=== PATIENT | female | born 1970 | race Two or more races ===

== ENCOUNTER 2020-03-20 14:00 | Inpatient (IN) | payer MEDICAID ==
[~2020-03-20] VITALS: Ht 149.9 cm; Wt 49.0 kg
[2020-03-20] MEDS ORDERED: Omnipaque-300 100ml vial INJ PRN (14:15)
[2020-03-20 14:20] VITALS: BP 126/100
--- NOTE | 2020-03-20 14:32 | Emergency Room Report ---
History of Present Illness General Chief Complaint: Abdominal Pain Source: Patient, EMS (Manda Friend) Present Illness HPI 49 YO female presents to the emergency department complaining of 8 out of 10 severity abdominal pain with bloating and associated nausea, vomiting and diarrhea x1 week. Patient denies significant past medical history. Patient denies hx of liver disease or alcoholism. She reports she has not drunken alcohol in over 5 years until today. Pt. did ask if I would discard an empty bottle of vodka for her during HPI and ROS. Pt. denies blood in vomit or stool. She denies black tarry stools. Patient denies recent antibiotic use. She denies fevers or chills. She denies cough, chest pain, shortness of breath or lower extremity edema. No other aggravating or relieving factors at this time. (Manda Friend) Allergies: Coded Allergies: No Known Allergies (Unverified , 03/20/20) COVID-19 Screening Contact w/high risk pt: No Experienced COVID-19 symptoms?: No COVID-19 Testing performed MEDICAL RECORDS CLERK: No (Manda Friend) Patient History Past Medical History: see triage record Past Surgical History: none Pertinent Family History: none Now: No Reviewed Nursing Documentation: PMH: Agreed; PSxH: Agreed (Manda Friend) Nursing Documentation-PMH Past Medical History: No Stated History (Manda Friend) Review of Systems All Other Systems: negative except mentioned in HPI (Manda Friend) Physical Exam Vital Signs Date Time Temp Pulse Resp B/P (MAP) Pulse Ox O2 Delivery O2 Flow Rate FiO2 03/20/20 14:02 97.2 64 18 126/100 (109) 100 Room Air Sp02 EP Interpretation: reviewed, normal General Appearance: alert, GCS 15, mild distress, thin, Chronically Ill Head: normocephalic, atraumatic Eyes: bilateral eye PERRL, bilateral eye scleral icterus ENT: hearing grossly normal, normal voice Neck: full range of motion Respiratory: chest non-tender, lungs clear, normal breath sounds, no respiratory distress, no wheezing, speaking full sentences Cardiovascular #1: regular rate, rhythm, no edema, normal capillary refill Gastrointestinal: normal bowel sounds - distant bowel sounds, soft, distended, tenderness - Diffusely in all 4 quadrants Rectal: deferred Genitourinary: normal inspection, no CVA tenderness Musculoskeletal: back normal, normal range of motion, non-tender Neurologic: alert, motor strength/tone normal, oriented x3, sensory intact, responsive, speech normal, no focal defects Psychiatric: judgement/insight normal Skin: no rash, normal color (Manda Friend) Procedures Critical Care Time Critical Care Time Total Critical Care Time: 60 min bedside evaluation and treatment excludes procedures (EKG, paracentesis). Reason for critical care: Liver failure, sepsis, hypotension, possible spontaneous bacterial peritonitis, anemia Possible complications: hypotension, hypertension, CO, shock, arrhythmias, metabolic acidosis, end organ damage, respiratory failure. Interventions: Repeat evaluations, sepsis resuscitation, antibiotics, diagnostic paracentesis, blood transfusion Course: Patient presented with abdominal pain with nausea and vomiting for 1 week. Please see evaluation by PA. Elevated white blood cell count led to evaluation of source. Accu-Chek low. D50 water ordered. This necessitated diagnostic paracentesis. In addition the patient received judicious IV hydration initially. Patient became hypotensive prior to paracentesis. 30 mils per kilogram fluid bolus administered. Level of care upgraded. Discussed with O physician and determination patient unstable for transfer. Antibiotics administered. Detailed discussion with PA regarding treatment. Vitamin K administered IV for coagulopathy. Blood transfusion ordered and informed consent performed with patient. Emergent indication with severe anemia and hypotension. Vital signs improved after blood transfusion which was tolerated well. Consultations: nursing staff, EMS, PA, O physician Performed by: Dr. Lima Tolerated well condition = critical (Kong Lima MD) Additional Procedure Procedure Narrative Paracentesis - diagnostic: Informed consent obtained by patient. Right lower quadrant prepped with Betadine. Ultrasound used with sterile covering. Lidocaine with epinephrine infused intradermally and subcutaneously and then deeply with 25-gauge needle. Paracentesis performed in space free of bowel loops with 21-gauge needle. 30 mils of straw-colored fluid obtained without difficulty. No continued bleeding at the site. Patient tolerated the procedure well. (Kong Lima MD) Medical Decision Making PA Attestation Dr. Lima Is my supervising Physician whom patient management has been discussed with. (Manda Friend) Diagnostic Impression: Primary Impression: Hepatitis Additional Impressions: Hypoglycemia Leukocytosis Qualified Codes: D72.829 - Elevated white blood cell count, unspecified Anemia Qualified Codes: D64.9 - Anemia, unspecified Acute renal failure Qualified Codes: N17.9 - Acute kidney failure, unspecified Cirrhosis Qualified Codes: K70.31 - Alcoholic cirrhosis of liver with ascites History of alcohol abuse UTI (urinary tract infection) Qualified Codes: N39.0 - Urinary tract infection, site not specified ER Course 49 YO female presents to the emergency department complaining of 8 out of 10 severity abdominal pain with bloating and associated nausea, vomiting and diarrhea x1 week. Patient denies significant past medical history. Patient denies hx of liver disease or alcoholism. She reports she has not drunken alcohol in over 5 years until today. Pt. did ask if I would discard an empty bottle of vodka for her during HPI and ROS. Pt. denies blood in vomit or stool. She denies black tarry stools. Patient denies recent antibiotic use. She denies fevers or chills. She denies cough, chest pain, shortness of breath or lower extremity edema. No other aggravating or relieving factors at this time. Ddx considered but are not limited to Diverticulitis, acute appy, diarrhea,UC, PUD, GE, pancreatitis, gallstone Vital signs: are WNL, pt. is afebrile H&PE are most consistent with appearance of ascites as well as scleral icterus high suspicion of liver failure/hepatitis. Stable VS. Mentation is normal at this time. No liver flap. ORDERS: -CBC WBC- 28.4 ( elevated ) -CMP: * Low potassium 2.6, Cr elevated at 3 -Lipase -Troponin: WNL 0.00 -Total CK - UA -Hepatitis Panel -Ammonia: 52 elevated -Serum ETOH: no acute intoxication -Accu-Check: 30 * ED INTERVENTIONS: -- 500cc NS at a rate of 200mls/hr , then bolus x 2 -D50 --- to correct hypoglycemia of 30 PT. given potassium, magnesium, IV abx: Flagyl & Cefepime DISPOSITION: at this time pt. will be admitted to Dr. Diaz for Acute Liver Failure, hypoglycemia, hypokalemia and leukocytosis. Dr. Diaz agreed to admit the pt. and to continue pt. care management. Labs Test 03/20/20 15:30 White Blood Count 28.4 K/UL (4.8-10.8) Red Blood Count 2.23 M/UL (4.20-5.40) Hemoglobin 6.9 G/DL (12.0-16.0) Hematocrit 22.2 % (37.0-47.0) Mean Corpuscular Volume 100 FL (80-99) Mean Corpuscular Hemoglobin 30.9 PG (27.0-31.0) Mean Corpuscular Hemoglobin Concent 31.0 G/DL (32.0-36.0) Red Cell Distribution Width 17.1 % (11.6-14.8) Platelet Count 103 K/UL (150-450) Mean Platelet Volume 12.6 FL (6.5-10.1) Neutrophils (%) (Auto) % (45.0-75.0) Lymphocytes (%) (Auto) % (20.0-45.0) Monocytes (%) (Auto) % (1.0-10.0) Eosinophils (%) (Auto) % (0.0-3.0) Basophils (%) (Auto) % (0.0-2.0) Differential Total Cells Counted 100 Neutrophils % (Manual) 91 % (45-75) Lymphocytes % (Manual) 4 % (20-45) Monocytes % (Manual) 3 % (1-10) Eosinophils % (Manual) 0 % (0-3) Basophils % (Manual) 0 % (0-2) Band Neutrophils 2 % (0-8) Platelet Estimate Decreased Platelet Morphology Normal Polychromasia 1+ Hypochromasia 2+ Anisocytosis 2+ Macrocytosis 2+ Prothrombin Time 21.8 SEC (9.30-11.50) Prothromb Time International Ratio 2.1 (0.9-1.1) Activated Partial Thromboplast Time 36 SEC (23-33) Sodium Level 133 MMOL/L (136-145) Potassium Level 2.6 MMOL/L (3.5-5.1) Chloride Level 95 MMOL/L (98-107) Carbon Dioxide Level 25 MMOL/L (21-32) Anion Gap 14 mmol/L (5-15) Blood Urea Nitrogen 61 mg/dL (7-18) Creatinine 3.2 MG/DL (0.55-1.30) Estimat Glomerular Filtration Rate 15.3 mL/min (>60) Glucose Level 362 MG/DL (74-106) Calcium Level 7.5 MG/DL (8.5-10.1) Total Bilirubin 7.3 MG/DL (0.2-1.0) Direct Bilirubin 7.0 MG/DL (0.0-0.3) Aspartate Amino Transf (AST/SGOT) 23 U/L (15-37) Alanine Aminotransferase (ALT/SGPT) < 6 U/L (12-78) Alkaline Phosphatase 174 U/L (46-116) Ammonia 52 umol/L (11-32) Total Creatine Kinase 9 U/L (26-308) Troponin I 0.000 ng/mL (0.000-0.056) Total Protein 4.6 G/DL (6.4-8.2) Albumin 1.1 G/DL (3.4-5.0) Globulin 3.5 g/dL Albumin/Globulin Ratio 0.3 (1.0-2.7) Lipase 25 U/L (73-393) Serum Alcohol < 3 mg/dL (Manda Friend) ER Course Please see above note. Fluids begun, antibiotics ordered. K+ also ordered. Vitamin K also. Clinically the patient has sepsis and ascites suggesting spontaneous bacterial peritonitis. I discussed paracentesis with patient. Paracentesis performed and patient tolerated well. 30 mils of benito fluid obtained. Cultures sent (antibiotics had been started.) Patient blood pressure is low. Patient appears dry. 30 mill per kilogram bolus ordered. Antibiotics already started. Sepsis reevaluation [address] Franco who agrees unstable for transfer. 1742 Blood transfusion ordered. BP still low but blood not given yet. 1939 See paracentesis fluid results. (Kong Lima MD) EKG Diagnostic Results Troponin ordered: Yes When was troponin ordered?: Mar 20, 2020 EKG Time: 15:39 Rate: normal - 78 bpm Rhythm: NSR ST Segments: no acute changes Other Impression T-wave abnormalities in the inferior and anterolateral leads. Prolonged QTc of 483 ASA given to the pt in ED: No PA Scribe Text This Interpretation was scribed by MAKAYLA Friend. (Manda Friend) Rhythm Strip Diag. Results EP Interpretation: yes Rhythm: NSR, no PVC's, no ectopy (Kong Lima MD) Chest X-Ray Diagnostic Results Chest X-Ray Diagnostic Results : Chest X-Ray Ordered: Yes # of Views/Limited/Complete: 1 View Indication: Other - septic work up PA Xray: Interpretation reviewed, by supervising MD, and agrees with findings. Interpretation: no consolidation, no effusion, no pneumothorax, no acute cardiopulmonary disease Impression: No acute disease Electronically Signed by: Manda Friend PA-C (Manda Friend) CT/MRI/US Diagnostic Results CT/MRI/US Diagnostic Results : Imaging Test Ordered: CT Abdomen and Pelvis Impression " Impression: Limited assessment of the GI tract, due to lack of enteric contrast administration, Unusual gas and fluid collection with calcifications within or adjacent to the vaginal wall, as described. Significance/etiology uncertain but the possibility of infected collection should be considered. Consider further evaluation with sonography as well as gynecological evaluation. 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 (Manda Friend) Last Vital Signs Date Time Temp Pulse Resp B/P (MAP) Pulse Ox O2 Delivery O2 Flow Rate FiO2 03/20/20 14:02 97.2 64 18 126/100 (109) 100 Room Air (Manda Friend) Last Vital Signs Date Time Temp Pulse Resp B/P (MAP) Pulse Ox O2 Delivery O2 Flow Rate FiO2 03/21/20 00:00 96.0 70 16 90/52 (65) 100 03/21/20 00:00 Room Air Status: improved (Kong Lima MD) Disposition: ADMITTED INPATIENT Condition: Critical Scripts No Active Prescriptions or Reported Meds Manda Friend Mar 20, 2020 14:32 Kong Lima MD Mar 20, 2020 15:22
[2020-03-20] MEDS: Sodium Chloride 550 ML IV SCH ×4 (14:44→22:30)
[2020-03-20 15:43] LABS: HEMATOCRIT 22.2 % (37.0-47.0); MEAN CORPUSCULAR VOLUME 100 FL (80-99); PLATELET COUNT 103 K/UL (150-450); RED BLOOD COUNT 2.23 M/UL (4.20-5.40); RED CELL DISTRIBUTION WIDTH 17.1 % (11.6-14.8)
[2020-03-20 15:48] LABS: HEMOGLOBIN 6.9 G/DL (12.0-16.0); WHITE BLOOD COUNT 28.4 K/UL (4.8-10.8)
[2020-03-20 15:56] LABS: INR 2.1 (0.9-1.1)
[2020-03-20 15:58] LABS: AMMONIA 52 umol/L (11-32)
[2020-03-20] MEDS ORDERED: Cefepime HCl 1 GM in D5W 55 ML IVPB ONE (16:00)
[2020-03-20 16:06] LABS: ALBUMIN 1.1 G/DL (3.4-5.0); ALBUMIN/GLOBULIN RATIO 0.3 (1.0-2.7); ALKALINE PHOSPHATASE 174 U/L (46-116); ANION GAP 14 mmol/L (5-15); ASPARTATE AMINO TRANSFERASE 23 U/L (15-37); BILIRUBIN,TOTAL 7.3 MG/DL (0.2-1.0); BLOOD UREA NITROGEN 61 mg/dL (7-18); CALCIUM 7.5 MG/DL (8.5-10.1); CARBON DIOXIDE 25 MMOL/L (21-32); CHLORIDE 95 MMOL/L (98-107); CREATININE 3.2 MG/DL (0.55-1.30); SODIUM 133 MMOL/L (136-145)
[2020-03-20 16:07] LABS: POTASSIUM 2.6 MMOL/L (3.5-5.1)
[2020-03-20] MEDS ORDERED: Morphine Sulfate 4mg/ml Inj (IV USE ONLY) IVP ONE (16:15)
[2020-03-20 16:18] LABS: ALANINE AMINOTRANSFERASE < 6 U/L (12-78)
[2020-03-20 16:30] LABS: CREATINE KINASE 9 U/L (26-308)
[2020-03-20] MEDS ORDERED: Lidocaine 1% 10mg/ml/Epi 0.005mg/ml 30ml vial INJ ONE (16:30)
--- NOTE | 2020-03-20 16:44 | Diagnostic Imaging Report ---
Indication: Chest pain Technique: One view of the chest Comparison: none Findings: Lungs and pleural spaces are clear. Heart size is normal. Impression: No acute process
--- NOTE | 2020-03-20 17:24 | Diagnostic Imaging Report ---
Indication: Abdominal pain and bloating, nausea, vomiting, diarrhea Technique: Spiral acquisitions obtained through the abdomen and pelvis. No oral contrast utilized, per emergency room physician request No IV contrast utilized, per referring physician request.. Multiplanar reconstructions were generated. Total dose length product 147 mGycm. CTDIvol(s) 2 mGy. Dose reduction achieved using automated exposure control Comparison: None Findings: Lack of enteric contrast limits assessment of the GI tract. No evidence of diverticulosis or diverticulitis. Unremarkable appendix. Large amount of ascites fluid is present. No small bowel distention. No free or loculated intraperitoneal gas. Distal esophagus, stomach, duodenum is unremarkable. Lack of IV contrast limits assessment of solid organs. The liver demonstrates some surface nodularity and relative hypertrophy of the left lobe. No definite focal abnormality. The gallbladder, bile ducts are unremarkable. The pancreas demonstrates extensive calcification. The spleen is normal in size. The adrenals and kidneys are unremarkable. No pelvic mass or adenopathy. Uterus and adnexal structures are unremarkable. An unusual gas and fluid collection is seen in the lower pelvis and peroneal midline, with calcifications. This appears to border the superior wall of the vagina and is located anterior to the cervix. The included lung bases demonstrate a few small bullae. There are posterior dependent atelectatic changes. The bones are unremarkable. Impression: Limited assessment of the GI tract, due to lack of enteric contrast administration Unusual gas and fluid collection with calcifications within or adjacent to the vaginal wall, as described. Significance/etiology uncertain but the possibility of infected collection should be considered. Consider further evaluation with sonography as well as gynecological evaluation. Large volume ascites Evidence of hepatic cirrhosis Evidence of chronic calcifying pancreatitis Evidence of bullous COPD Findings discussed by phone with nurse practitioner Manda in the emergency room at the time of interpretation The CT scanner at [facility] is accredited by the [employer] and the scans are performed using protocols designed to limit radiation exposure to as low as reasonably achievable to attain images of sufficient resolution adequate for diagnostic evaluation.
[2020-03-20] MEDS ORDERED: Sodium Chloride 1,400 ML IVLG ONE (17:45)
[2020-03-20 19:30] VITALS: BP_SYST 122; BP_SYST 72; BP_DIAS 48; BP_DIAS 78
[2020-03-20] MEDS ORDERED: Milk of Magnesia 30ml Ud ORAL PRN (20:45)
[2020-03-20] MEDS ORDERED: Zolpidem 5mg tab ORAL PRN (20:45)
[2020-03-20] MEDS ORDERED: Morphine Sulfate 4mg/ml Inj (IV USE ONLY) IVP PRN (21:00)
[2020-03-20 21:30] VITALS: BP 78/55
[2020-03-20] MEDS: Spironolactone 50mg tab ORAL SCH (21:35)
[2020-03-20] MEDS ORDERED: D5 1/2NS w/KCl 40meq 1000ml 1,000 ML IV SCH (23:00)
[2020-03-21] VITALS: BP 90/52
[2020-03-21 04:13] VITALS: BP 105/80
[2020-03-21 07:02] LABS: APPEARANCE,URINE CLOUDY; BILIRUBIN, URINE 2+ (NEGATIVE); COLOR,URINE BROWN; GLUCOSE, URINE (UA) NEGATIVE (NEGATIVE); KETONES,URINE 1+ (NEGATIVE); LEUKOCYTE ESTERASE ,URINE 3+ (NEGATIVE); NITRITE,URINE POSITIVE (NEGATIVE); PH,URINE 6 (4.5-8.0); PROTEIN,URINE 2+ (NEGATIVE); UROBILINOGEN,URINE 4 MG/DL (0.0-1.0)
[2020-03-21 07:29] LABS: HEMATOCRIT 29.5 % (37.0-47.0); HEMOGLOBIN 9.8 G/DL (12.0-16.0); MEAN CORPUSCULAR VOLUME 90 FL (80-99); PLATELET COUNT 92 K/UL (150-450); RED BLOOD COUNT 3.26 M/UL (4.20-5.40); RED CELL DISTRIBUTION WIDTH 16.5 % (11.6-14.8); WHITE BLOOD COUNT 26.3 K/UL (4.8-10.8)
[2020-03-21 07:36] LABS: ALANINE AMINOTRANSFERASE < 6 U/L (12-78); ALBUMIN 1.2 G/DL (3.4-5.0); ALBUMIN/GLOBULIN RATIO 0.3 (1.0-2.7); ALKALINE PHOSPHATASE 204 U/L (46-116); ANION GAP 18 mmol/L (5-15); ASPARTATE AMINO TRANSFERASE 29 U/L (15-37); BILIRUBIN,TOTAL 8.8 MG/DL (0.2-1.0); BLOOD UREA NITROGEN 57 mg/dL (7-18); CALCIUM 7.4 MG/DL (8.5-10.1); CARBON DIOXIDE 17 MMOL/L (21-32); CHLORIDE 99 MMOL/L (98-107); CREATININE 2.8 MG/DL (0.55-1.30); POTASSIUM 3.3 MMOL/L (3.5-5.1); SODIUM 133 MMOL/L (136-145)
[2020-03-21 07:38] LABS: BILIRUBIN,DIRECT 7.6 MG/DL (0.0-0.3)
[2020-03-21 08:00] VITALS: BP 86/66
--- NOTE | 2020-03-21 09:28 | General Progress Note ---
Subjective ROS Limited/Unobtainable: Yes Allergies: Coded Allergies: No Known Allergies (Unverified , 03/20/20) Objective Last 24 Hour Vital Signs Date Time Temp Pulse Resp B/P (MAP) Pulse Ox O2 Delivery O2 Flow Rate FiO2 03/21/20 08:00 96.8 89 14 86/66 (73) 100 03/21/20 08:00 86 03/21/20 04:13 97.0 78 16 105/80 (88) 100 03/21/20 04:00 Room Air 03/21/20 04:00 78 03/21/20 00:00 96.0 70 16 90/52 (65) 100 03/21/20 00:00 67 03/21/20 00:00 Room Air 03/20/20 23:13 Room Air 03/20/20 22:40 68 03/20/20 22:10 98.2 80 18 99/58 100 Room Air 03/20/20 21:30 98.2 80 18 78/55 100 Room Air 03/20/20 19:30 98.2 03/20/20 19:30 97.5 82 18 72/48 100 Room Air 03/20/20 14:20 97.2 87 18 126/100 100 Room Air 03/20/20 14:20 64 18 Room Air 03/20/20 14:02 97.2 64 18 126/100 (109) 100 Room Air Intake and Output 03/20/20 03/21/20 19:00 07:00 Intake Total 0 ml 825 ml Balance 0 ml 825 ml Intake Oral 0 ml 300 ml IV Total 525 ml # Voids 2 # Bowel Movements 2 Laboratory Tests 03/20/20 15:30: White Blood Count 28.4*H, Red Blood Count 2.23L, Hemoglobin 6.9*L, Hematocrit 22.2L, Mean Corpuscular Volume 100H, Mean Corpuscular Hemoglobin 30.9, Mean Corpuscular Hemoglobin Concent 31.0L, Red Cell Distribution Width 17.1H, Platelet Count 103L, Mean Platelet Volume 12.6H, Neutrophils (%) (Auto) , Lymphocytes (%) (Auto) , Monocytes (%) (Auto) , Eosinophils (%) (Auto) , Basophils (%) (Auto) , Differential Total Cells Counted 100, Neutrophils % (Manual) 91H, Lymphocytes % (Manual) 4L, Monocytes % (Manual) 3, Eosinophils % (Manual) 0, Basophils % (Manual) 0, Band Neutrophils 2, Platelet Estimate DecreasedL, Platelet Morphology Normal, Polychromasia 1+, Hypochromasia 2+, Anisocytosis 2+, Macrocytosis 2+, Prothrombin Time 21.8H, Prothromb Time International Ratio 2.1H, Activated Partial Thromboplast Time 36H, Sodium Level 133L, Potassium Level 2.6*L, Chloride Level 95L, Carbon Dioxide Level 25, Anion Gap 14, Blood Urea Nitrogen 61H, Creatinine 3.2H, Estimat Glomerular Filtration Rate 15.3, Glucose Level 362H, Calcium Level 7.5L, Total Bilirubin 7.3H, Direct Bilirubin 7.0H, Aspartate Amino Transf (AST/SGOT) 23, Alanine Aminotransferase (ALT/SGPT) < 6L, Alkaline Phosphatase 174H, Ammonia 52H, Total Creatine Kinase 9L, Troponin I 0.000, Total Protein 4.6L, Albumin 1.1L, Globulin 3.5, Albumin/Globulin Ratio 0.3L, Lipase 25L, Serum Alcohol < 3, Hepatitis A Antibody Total [Pending], Hepatitis B Surface Antigen [Pending], Hepatitis B Core IgM Antibody [Pending], Hepatitis C Antibody [Pending] 03/20/20 17:30: Body Fluid Source Paracentesis, Body Fluid Volume 29, Body Fluid Appearance Clear, Body Fluid RBC 10, Body Fluid Total Nucleated Cells 44, Body Fluid Polynuclear WBCs (%) 15, Body Fluid Mononuclear WBCs (%) 85, Body Fluid Mesothelial Cells (%) 0, Body Fluid Glucose [Pending], Body Fluid Albumin [Pending], Body Fluid Lactate Dehydrogenase [Pending], Body Fluid Amylase [Pending], Body Fluid Comment None 03/21/20 06:00: Urine Color Brown, Urine Appearance Cloudy, Urine pH 6, Urine Specific [place] 1.010, Urine Protein 2+H, Urine Glucose (UA) Negative, Urine Ketones 1+H, Urine Blood 5+H, Urine Nitrite PositiveH, Urine Bilirubin 2+H, Urine Ictotest Positive, Urine Urobilinogen 4H, Urine Leukocyte Esterase 3+H, Urine RBC 20-30H, Urine WBC TntcH, Urine Squamous Epithelial Cells Few, Urine Bacteria ManyH 03/21/20 06:24: POC Whole Blood Glucose 134H 03/21/20 06:40: White Blood Count 26.3*H, Red Blood Count 3.26L, Hemoglobin 9.8#L, Hematocrit 29.5#L, Mean Corpuscular Volume 90#, Mean Corpuscular Hemoglobin 30.0, Mean Corpuscular Hemoglobin Concent 33.2, Red Cell Distribution Width 16.5H, Platelet Count 92L, Mean Platelet Volume 11.8H, Neutrophils (%) (Auto) , Lymphocytes (%) (Auto) , Monocytes (%) (Auto) , Eosinophils (%) (Auto) , Basophils (%) (Auto) , Neutrophils % (Manual) [Pending], Lymphocytes % (Manual) [Pending], Platelet Estimate [Pending], Platelet Morphology [Pending], Sodium Level 133L, Potassium Level 3.3L, Chloride Level 99, Carbon Dioxide Level 17L, Anion Gap 18H, Blood Urea Nitrogen 57H, Creatinine 2.8H, Estimat Glomerular Filtration Rate 17.8, Glucose Level 115#H, Lactic Acid Level 4.90H, Calcium Level 7.4L, Total Bilirubin 8.8H, Direct Bilirubin 7.6H, Aspartate Amino Transf (AST/SGOT) 29, Alanine Aminotransferase (ALT/SGPT) < 6L, Alkaline Phosphatase 204H, Total Protein 5.3L, Albumin 1.2L, Globulin 4.1, Albumin/Globulin Ratio 0.3L 03/21/20 08:30: Lactic Acid Level [Pending], D-Dimer 9.26H Height (Feet): 4 Height (Inches): 11.00 Weight (Pounds): 105 General Appearance: lethargic EENT: normal ENT inspection Neck: supple Cardiovascular: normal rate Respiratory/Chest: decreased breath sounds Abdomen: decreased bowel sounds, distended Extremities: non-tender Assessment/Plan Assessment/Plan: cirrhosis ascites thrombocytopenia anemia coagulopathy chronic pancreatitis ETOH abuse banana bag albumin fu labs s/p paracentesis creon poor prognosis Jatin Murphy MD Mar 21, 2020 09:28
[2020-03-21] MEDS ORDERED: Creon DR 36,000 units cap ORAL PRN (09:30)
--- NOTE | 2020-03-21 09:34 | History & Physical ---
History and Physical History & Physicial Hp dictated # [id number] Erick Diaz MD Mar 21, 2020 09:34
[2020-03-21] MEDS: cefTRIAXone 1 GM in NS 55 ML IVPB SCH (09:44)
[2020-03-21 12:00] VITALS: BP 91/61
--- NOTE | 2020-03-21 12:30 | History and Physical Report ---
DATE OF ADMISSION: 03/20/2020 CHIEF COMPLAINT: Abdominal pain, diarrhea. HISTORY OF PRESENT ILLNESS: This is a 49-year-old female, who currently lives in a retirement. She has had vomiting and diarrhea for one week and some abdominal pain. She was seen in the emergency room and was found to have acute renal failure with high bilirubin level and also urinary tract infection and hypokalemia. The patient was admitted for further treatment. PAST MEDICAL HISTORY: She denies history of liver disease, diabetes, or hypertension. MEDICATIONS: reviewed . SOCIAL HISTORY: The patient drinks vodka every day for many years. She also uses marijuana occasionally, but she denies history of IV drug use. She also smokes less than a pack a day. ALLERGIES: No known drug allergies. REVIEW OF SYSTEMS: As above. PHYSICAL EXAMINATION: GENERAL: The patient is a 49-year-old female. She looks older than stated age. VITAL SIGNS: Blood pressure is 86/66, pulse is 89, temperature 96.8, respirations 14. HEENT: Pale conjunctivae. Anicteric sclerae. NECK: Supple. LUNGS: Clear to auscultation. HEART: S1, S2 without murmurs or rubs. ABDOMEN: Soft and distended with high suspicion of ascites. EXTREMITIES: No cyanosis or edema. LABORATORY FINDINGS: The CBC shows a WBC of 26,300, hematocrit 29.5, hemoglobin is 9.8, platelet is 92,000. Chemistry panel shows a serum sodium 133, potassium 3.3, chloride 99, carbon dioxide 17, BUN is 57, creatinine is 2.8, blood sugar is 115, lactic acid 5.5. Total bilirubin is 7.4. AST is 29, ALT is less than 6. UA shows a wbc of numerous to count with 20 to 30 rbc's with many bacteria. ASSESSMENT: This is a 49-year-old female, was admitted with diarrhea, vomiting. She had severe hypokalemia, which is probably from her diarrhea. She has also urinary tract infection. Her lactic acid was increased, possibly from sepsis. She has elevated bilirubin and with a history of severe alcohol abuse very likely the patient has liver cirrhosis from alcohol. She has thrombocytopenia again probably related to her alcohol consumption as well as anemia and chronic GI bleed needs to be ruled out. PLAN: The patient was started on IV fluid with potassium, IV antibiotics. The patient will be seen by GI consultation. Labs will be followed and further adjustment will be made in the patient's regimen. Also I will order urine studies, specifically urine sodium to just make sure the patient does not have hepatorenal syndrome, although looks unlikely at this point since creatinine is improving with IV fluid. Erick Diaz M.D. DR: SANJUANA JOB#: [id number] CC: RENETTA
[2020-03-21] MEDS: Folic Acid 1 MG, Magnesium Sulfate 2,000 MG, Multivitamin - 12 Injection 10 ML in Sodiu... IV SCH (13:09)
[2020-03-21] MEDS: Thiamine 100mg IVPB (Q24H) IVPB SCH ×2 (13:09)
[2020-03-21 16:05] VITALS: BP 84/57
--- NOTE | 2020-03-21 19:59 | Cardiology Report ---
APPROVED REPORT EKG Measurement Heart [id number] <Conclusion> Normal sinus rhythm Low voltage QRS T wave abnormality, consider inferior ischemia T wave abnormality, consider anterolateral ischemia Prolonged QT Abnormal ECG
[2020-03-21 20:00] VITALS: BP 84/52
[2020-03-22] VITALS: BP 87/58
[2020-03-22 04:00] VITALS: BP 85/66
[2020-03-22 05:23] LABS: HEMATOCRIT 32.4 % (37.0-47.0); HEMOGLOBIN 10.6 G/DL (12.0-16.0); MEAN CORPUSCULAR VOLUME 90 FL (80-99); PLATELET COUNT 82 K/UL (150-450); RED BLOOD COUNT 3.59 M/UL (4.20-5.40); RED CELL DISTRIBUTION WIDTH 16.8 % (11.6-14.8)
[2020-03-22 05:34] LABS: INR 1.6 (0.9-1.1)
[2020-03-22 05:42] LABS: WHITE BLOOD COUNT 23.1 K/UL (4.8-10.8)
[2020-03-22 06:00] LABS: AMMONIA 59 umol/L (11-32)
[2020-03-22 06:03] LABS: ALANINE AMINOTRANSFERASE < 6 U/L (12-78); ALBUMIN 1.8 G/DL (3.4-5.0); ALBUMIN/GLOBULIN RATIO 0.4 (1.0-2.7); ALKALINE PHOSPHATASE 200 U/L (46-116); ANION GAP 15 mmol/L (5-15); ASPARTATE AMINO TRANSFERASE 40 U/L (15-37); BILIRUBIN,TOTAL 11.4 MG/DL (0.2-1.0); BLOOD UREA NITROGEN 51 mg/dL (7-18); CALCIUM 7.7 MG/DL (8.5-10.1); CARBON DIOXIDE 18 MMOL/L (21-32); CHLORIDE 101 MMOL/L (98-107); CREATININE 2.5 MG/DL (0.55-1.30); POTASSIUM 3.5 MMOL/L (3.5-5.1); SODIUM 134 MMOL/L (136-145)
[2020-03-22 07:11] LABS: BILIRUBIN,DIRECT 8.6 MG/DL (0.0-0.3)
[2020-03-22 08:00] VITALS: BP 86/47
[2020-03-22] MEDS: cefTRIAXone 1 GM in NS 55 ML IVPB SCH (09:03)
[2020-03-22] MEDS: Spironolactone 50mg tab ORAL SCH (09:03)
[2020-03-22] MEDS ORDERED: NS 275ml ONE (09:40)
[2020-03-22] MEDS ORDERED: Tubing IV Secondary IV ONE (09:40)
--- NOTE | 2020-03-22 09:40 | General Progress Note ---
Subjective Allergies: Coded Allergies: No Known Allergies (Unverified , 03/20/20) Subjective In NAD Objective Last 24 Hour Vital Signs Date Time Temp Pulse Resp B/P (MAP) Pulse Ox O2 Delivery O2 Flow Rate FiO2 03/22/20 08:00 97.0 82 20 86/47 (60) 95 03/22/20 08:00 Room Air 03/22/20 08:00 84 03/22/20 04:00 Room Air 03/22/20 04:00 75 03/22/20 04:00 98.4 80 18 85/66 (72) 100 03/22/20 00:00 Room Air 03/22/20 00:00 98.7 85 18 87/58 (68) 99 03/21/20 23:39 78 03/21/20 23:37 73 03/21/20 20:00 82 03/21/20 20:00 Room Air 03/21/20 20:00 98.5 82 17 84/52 (63) 99 03/21/20 16:06 Room Air 03/21/20 16:05 97.9 84 17 84/57 (66) 98 03/21/20 16:00 80 03/21/20 12:00 68 03/21/20 12:00 98.6 83 14 91/61 (71) 98 03/21/20 12:00 Room Air Intake and Output 03/21/20 03/22/20 19:00 07:00 Intake Total 785 ml 1000 ml Output Total 2 ml Balance 783 ml 1000 ml Intake Oral 660 ml IV Total 125 ml 1000 ml Output Drainage Total 2 ml # Bowel Movements 3 4 Laboratory Tests 03/21/20 22:50: Lactic Acid Level 1.30 03/22/20 04:39: White Blood Count 23.1*H, Red Blood Count 3.59L, Hemoglobin 10.6L, Hematocrit 32.4L, Mean Corpuscular Volume 90, Mean Corpuscular Hemoglobin 29.5, Mean Corpuscular Hemoglobin Concent 32.6, Red Cell Distribution Width 16.8H, Platelet Count 82L, Mean Platelet Volume 11.3H, Neutrophils (%) (Auto) , Lymphocytes (%) (Auto) , Monocytes (%) (Auto) , Eosinophils (%) (Auto) , Basophils (%) (Auto) , Differential Total Cells Counted 100, Neutrophils % (Manual) 89H, Lymphocytes % (Manual) 7L, Monocytes % (Manual) 4, Eosinophils % (Manual) 0, Basophils % (Manual) 0, Band Neutrophils 0, Platelet Estimate DecreasedL, Platelet Morphology Normal, Anisocytosis 1+, Prothrombin Time 17.0H, Prothromb Time International Ratio 1.6H, Sodium Level 134L, Potassium Level 3.5, Chloride Level 101, Carbon Dioxide Level 18L, Anion Gap 15, Blood Urea Nitrogen 51H, Creatinine 2.5H, Estimat Glomerular Filtration Rate 20.3, Glucose Level 59L, Calcium Level 7.7L, Total Bilirubin 11.4H, Direct Bilirubin 8.6H, Aspartate Amino Transf (AST/SGOT) 40H, Alanine Aminotransferase (ALT/SGPT) < 6L, Alkaline Phosphatase 200H, Ammonia 59H, Total Protein 6.0L, Albumin 1.8L, Globulin 4.2, Albumin/Vira bulin Ratio 0.4L, Vitamin D 25-Hydroxy [Pending], 25-Hydroxy Vitamin D2 [Pending], 25-Hydroxy Vitamin D3 [Pending] Height (Feet): 4 Height (Inches): 11.00 Weight (Pounds): 105 Cardiovascular: normal rate Respiratory/Chest: lungs clear Abdomen: distended Edema: no edema noted Generalized Assessment/Plan Problem List: (1) Acute renal failure ICD Codes: N17.9 - Acute kidney failure, unspecified SNOMED: 69343671 Qualifiers: Qualified Codes: N17.9 - Acute kidney failure, unspecified (2) Cirrhosis ICD Codes: K74.60 - Unspecified cirrhosis of liver SNOMED: 25499062 (3) Anemia ICD Codes: D64.9 - Anemia, unspecified SNOMED: 109684842 Qualifiers: Qualified Codes: D64.9 - Anemia, unspecified (4) Sepsis ICD Codes: A41.9 - Sepsis, unspecified organism SNOMED: 15622444 (5) Hypokalemia ICD Codes: E87.6 - Hypokalemia SNOMED: 07313792 Assessment/Plan: abxs check Vit D follow labs PT Discussed with Erick Wilde MD Mar 22, 2020 09:40
--- NOTE | 2020-03-22 10:40 | General Progress Note ---
Subjective ROS Limited/Unobtainable: Yes Allergies: Coded Allergies: No Known Allergies (Unverified , 03/20/20) Objective Last 24 Hour Vital Signs Date Time Temp Pulse Resp B/P (MAP) Pulse Ox O2 Delivery O2 Flow Rate FiO2 03/22/20 08:00 97.0 82 20 86/47 (60) 95 03/22/20 08:00 Room Air 03/22/20 08:00 84 03/22/20 04:00 Room Air 03/22/20 04:00 75 03/22/20 04:00 98.4 80 18 85/66 (72) 100 03/22/20 00:00 Room Air 03/22/20 00:00 98.7 85 18 87/58 (68) 99 03/21/20 23:39 78 03/21/20 23:37 73 03/21/20 20:00 82 03/21/20 20:00 Room Air 03/21/20 20:00 98.5 82 17 84/52 (63) 99 03/21/20 16:06 Room Air 03/21/20 16:05 97.9 84 17 84/57 (66) 98 03/21/20 16:00 80 03/21/20 12:00 68 03/21/20 12:00 98.6 83 14 91/61 (71) 98 03/21/20 12:00 Room Air Intake and Output 03/21/20 03/22/20 19:00 07:00 Intake Total 785 ml 1000 ml Output Total 2 ml Balance 783 ml 1000 ml Intake Oral 660 ml IV Total 125 ml 1000 ml Output Drainage Total 2 ml # Bowel Movements 3 4 Laboratory Tests 03/21/20 22:50: Lactic Acid Level 1.30 03/22/20 04:39: White Blood Count 23.1*H, Red Blood Count 3.59L, Hemoglobin 10.6L, Hematocrit 32.4L, Mean Corpuscular Volume 90, Mean Corpuscular Hemoglobin 29.5, Mean Corpuscular Hemoglobin Concent 32.6, Red Cell Distribution Width 16.8H, Platelet Count 82L, Mean Platelet Volume 11.3H, Neutrophils (%) (Auto) , Lymphocytes (%) (Auto) , Monocytes (%) (Auto) , Eosinophils (%) (Auto) , Basophils (%) (Auto) , Differential Total Cells Counted 100, Neutrophils % (Manual) 89H, Lymphocytes % (Manual) 7L, Monocytes % (Manual) 4, Eosinophils % (Manual) 0, Basophils % (Manual) 0, Band Neutrophils 0, Platelet Estimate DecreasedL, Platelet Morphology Normal, Anisocytosis 1+, Prothrombin Time 17.0H, Prothromb Time International Ratio 1.6H, Sodium Level 134L, Potassium Level 3.5, Chloride Level 101, Carbon Dioxide Level 18L, Anion Gap 15, Blood Urea Nitrogen 51H, Creatinine 2.5H, Estimat Glomerular Filtration Rate 20.3, Glucose Level 59L, Calcium Level 7.7L, Total Bilirubin 11.4H, Direct Bilirubin 8.6H, Aspartate Amino Transf (AST/SGOT) 40H, Alanine Aminotransferase (ALT/SGPT) < 6L, Alkaline Phosphatase 200H, Ammonia 59H, Total Protein 6.0L, Albumin 1.8L, Globulin 4.2, Albumin/Globulin Ratio 0.4L, Vitamin D 25-Hydroxy [Pending], 25-Hydroxy Vitamin D2 [Pending], 25-Hydroxy Vitamin D3 [Pending] Height (Feet): 4 Height (Inches): 11.00 Weight (Pounds): 105 General Appearance: no apparent distress EENT: normal ENT inspection Neck: supple Cardiovascular: normal rate Respiratory/Chest: decreased breath sounds Abdomen: soft, hypoactive bowel sounds, distended, tender Extremities: non-tender Assessment/Plan Assessment/Plan: cirrhosis ascites thrombocytopenia anemia coagulopathy chronic pancreatitis ETOH abuse banana bag albumin fu labs s/p paracentesis creon add xifaxan advance diet to 2 gm poor prognosis Jatin Murphy MD Mar 22, 2020 10:40
[2020-03-22 12:00] VITALS: BP 88/58
[2020-03-22] MEDS: Thiamine 100mg IVPB (Q24H) IVPB SCH ×2 (13:26)
[2020-03-22] MEDS: Folic Acid 1 MG, Magnesium Sulfate 2,000 MG, Multivitamin - 12 Injection 10 ML in Sodiu... IV SCH (13:26)
[2020-03-22 16:00] VITALS: BP 88/59
[2020-03-22 20:00] VITALS: BP 94/62
[2020-03-23] VITALS: BP 129/62
[2020-03-23] MEDS: Morphine Sulfate 2mg/ml Inj(IV/IM USE ONLY) IVP PRN (00:28)
[2020-03-23 04:00] VITALS: BP 92/65
[2020-03-23 04:29] LABS: HEMATOCRIT 39.5 % (37.0-47.0); HEMOGLOBIN 12.8 G/DL (12.0-16.0); MEAN CORPUSCULAR VOLUME 91 FL (80-99); PLATELET COUNT 67 K/UL (150-450); RED BLOOD COUNT 4.36 M/UL (4.20-5.40); RED CELL DISTRIBUTION WIDTH 16.7 % (11.6-14.8)
[2020-03-23 04:46] LABS: WHITE BLOOD COUNT 24.4 K/UL (4.8-10.8)
[2020-03-23 04:54] LABS: ALANINE AMINOTRANSFERASE < 6 U/L (12-78); ALBUMIN 2.4 G/DL (3.4-5.0); ALBUMIN/GLOBULIN RATIO 0.6 (1.0-2.7); ALKALINE PHOSPHATASE 227 U/L (46-116); ASPARTATE AMINO TRANSFERASE 40 U/L (15-37); BILIRUBIN,TOTAL 11.7 MG/DL (0.2-1.0); BLOOD UREA NITROGEN 45 mg/dL (7-18); CALCIUM 8.6 MG/DL (8.5-10.1); CARBON DIOXIDE 20 MMOL/L (21-32); CHLORIDE 103 MMOL/L (98-107); CREATININE 2.2 MG/DL (0.55-1.30); POTASSIUM 4.4 MMOL/L (3.5-5.1); SODIUM 135 MMOL/L (136-145)
[2020-03-23 08:00] VITALS: BP_SYST 100; BP_SYST 88; BP_DIAS 65; BP_DIAS 66
[2020-03-23] MEDS: cefTRIAXone 1 GM in NS 55 ML IVPB SCH (09:18)
[2020-03-23] MEDS: Spironolactone 50mg tab ORAL SCH (09:18)
[2020-03-23 12:00] VITALS: BP 102/73
[2020-03-23] MEDS: Thiamine 100mg IVPB (Q24H) IVPB SCH ×2 (12:44)
[2020-03-23] MEDS: Folic Acid 1 MG, Magnesium Sulfate 2,000 MG, Multivitamin - 12 Injection 10 ML in Sodiu... IV SCH (12:45)
--- NOTE | 2020-03-23 12:49 | General Progress Note ---
Subjective Allergies: Coded Allergies: No Known Allergies (Unverified , 03/20/20) Subjective weak Objective Last 24 Hour Vital Signs Date Time Temp Pulse Resp B/P (MAP) Pulse Ox O2 Delivery O2 Flow Rate FiO2 03/23/20 08:00 98.0 75 16 100/66 (77) 100 03/23/20 08:00 70 03/23/20 08:00 70 03/23/20 08:00 98.0 67 19 88/65 (73) 100 03/23/20 08:00 Room Air 03/23/20 04:00 72 03/23/20 04:00 96.5 72 19 92/65 (74) 97 03/23/20 04:00 Room Air 03/23/20 00:00 Room Air 03/23/20 00:00 79 03/23/20 00:00 96.8 85 20 129/62 (84) 100 03/22/20 20:00 96.5 72 19 94/62 (73) 96 03/22/20 20:00 Room Air 03/22/20 19:49 79 03/22/20 16:00 69 03/22/20 16:00 Room Air 03/22/20 16:00 96.5 78 18 88/59 (69) 100 Intake and Output 03/22/20 03/23/20 19:00 07:00 Intake Total 820 ml 875 ml Balance 820 ml 875 ml Intake Oral 320 ml 250 ml IV Total 500 ml 625 ml # Voids 2 # Bowel Movements 4 5 Laboratory Tests 03/23/20 04:00: White Blood Count 24.4*H, Red Blood Count 4.36, Hemoglobin 12.8, Hematocrit 39.5, Mean Corpuscular Volume 91, Mean Corpuscular Hemoglobin 29.3, Mean Corpuscular Hemoglobin Concent 32.3, Red Cell Distribution Width 16.7H, Platelet Count 67L, Mean Platelet Volume 11.5H, Neutrophils (%) (Auto) , Lymphocytes (%) (Auto) , Monocytes (%) (Auto) , Eosinophils (%) (Auto) , Basophils (%) (Auto) , Differential Total Cells Counted 100, Neutrophils % (Manual) 91H, Lymphocytes % (Manual) 5L, Monocytes % (Manual) 4, Eosinophils % (Manual) 0, Basophils % (Manual) 0, Band Neutrophils 0, Platelet Estimate DecreasedL, Platelet Morphology Normal, Red Blood Cell Morphology , Anisocytosis 1+, Sodium Level 13 5L, Potassium Level 4.4, Chloride Level 103, Carbon Dioxide Level 20L, Blood Urea Nitrogen 45H, Creatinine 2.2H, Estimat Glomerular Filtration Rate 23.5, Glucose Level 132H, Calcium Level 8.6, Total Bilirubin 11.7H, Direct Bilirubin 9.0H, Aspartate Amino Transf (AST/SGOT) 40H, Alanine Aminotransferase (ALT/SGPT) < 6L, Alkaline Phosphatase 227H, Total Protein 6.1L, Albumin 2.4L, Globulin 3.7, Albumin/Globulin Ratio 0.6L 03/23/20 07:43: POC Whole Blood Glucose [Pending] Height (Feet): 4 Height (Inches): 11.00 Weight (Pounds): 105 Cardiovascular: normal rate Respiratory/Chest: lungs clear Abdomen: distended Assessment/Plan Problem List: (1) Acute renal failure ICD Codes: N17.9 - Acute kidney failure, unspecified SNOMED: 78631387 Qualifiers: Qualified Codes: N17.9 - Acute kidney failure, unspecified (2) Cirrhosis ICD Codes: K74.60 - Unspecified cirrhosis of liver SNOMED: 86203584 Qualifiers: Qualified Codes: K70.31 - Alcoholic cirrhosis of liver with ascites (3) Anemia ICD Codes: D64.9 - Anemia, unspecified SNOMED: 850060226 Qualifiers: Qualified Codes: D64.9 - Anemia, unspecified (4) Sepsis ICD Codes: A41.9 - Sepsis, unspecified organism SNOMED: 22950447 (5) Hypokalemia ICD Codes: E87.6 - Hypokalemia SNOMED: 98906602 Assessment/Plan: abxs check Vit D follow labs PT Discussed with mother and Erick Wilde MD Mar 23, 2020 12:49
[2020-03-23 16:00] VITALS: BP 99/69
[2020-03-23 20:00] VITALS: BP 99/78
--- NOTE | 2020-03-23 21:58 | General Progress Note ---
Subjective Allergies: Coded Allergies: No Known Allergies (Unverified , 03/20/20) Subjective above noted c/o some abdominal distention d/w RN labs noted Objective Last 24 Hour Vital Signs Date Time Temp Pulse Resp B/P (MAP) Pulse Ox O2 Delivery O2 Flow Rate FiO2 03/23/20 20:07 Room Air 03/23/20 20:00 96.2 81 19 99/78 (85) 96 03/23/20 20:00 82 03/23/20 16:00 97.0 78 16 99/69 (79) 100 03/23/20 16:00 Room Air 03/23/20 16:00 75 03/23/20 16:00 75 03/23/20 15:00 Room Air 03/23/20 12:00 76 03/23/20 12:00 Room Air 03/23/20 12:00 97.0 81 16 102/73 (83) 100 03/23/20 12:00 76 03/23/20 08:00 98.0 75 16 100/66 (77) 100 03/23/20 08:00 70 03/23/20 08:00 70 03/23/20 08:00 98.0 67 19 88/65 (73) 100 03/23/20 08:00 Room Air 03/23/20 04:00 72 03/23/20 04:00 96.5 72 19 92/65 (74) 97 03/23/20 04:00 Room Air 03/23/20 00:00 Room Air 03/23/20 00:00 79 03/23/20 00:00 96.8 85 20 129/62 (84) 100 Intake and Output 03/22/20 03/23/20 19:00 07:00 Intake Total 820 ml 875 ml Balance 820 ml 875 ml Intake Oral 320 ml 250 ml IV Total 500 ml 625 ml # Voids 2 # Bowel Movements 4 5 Laboratory Tests 03/23/20 04:00: White Blood Count 24.4*H, Red Blood Count 4.36, Hemoglobin 12.8, Hematocrit 39.5, Mean Corpuscular Volume 91, Mean Corpuscular Hemoglobin 29.3, Mean Corpuscular Hemoglobin Concent 32.3, Red Cell Distribution Width 16.7H, Platelet Count 67L, Mean Platelet Volume 11.5H, Neutrophils (%) (Auto) , Lymphocytes (%) (Auto) , Monocytes (%) (Auto) , Eosinophils (%) (Auto) , Basophils (%) (Auto) , Differential Total Cells Counted 100, Neutrophils % (Manual) 91H, Lymphocytes % (Manual) 5L, Monocytes % (Manual) 4, Eosinophils % (Manual) 0, Basophils % (Manual) 0, Band Neutrophils 0, Platelet Estimate DecreasedL, Platelet Morphology Normal, Red Blood Cell Morphology , Anisocytosis 1+, Sodium Level 135L, Potassium Level 4.4, Chloride Level 103, Carbon Dioxide Level 20L, Blood Urea Nitrogen 45H, Creatinine 2.2H, Estimat Glomerular Filtration Rate 23.5, Glucose Level 132H, Calcium Level 8.6, Total Bilirubin 11.7H, Direct Bilirubin 9.0H, Aspartate Amino Transf (AST/SGOT) 40H, Alanine Aminotransferase (ALT/SGPT) < 6L, Alkaline Phosphatase 227H, Total Protein 6.1L, Albumin 2.4L, Globulin 3.7, Albumin/Globulin Ratio 0.6L 03/23/20 07:43: POC Whole Blood Glucose [Pending] Height (Feet): 4 Height (Inches): 11.00 Weight (Pounds): 105 Objective cathexic woman with distended abdomen NCAT supple CTA RR abd distended, (+) fluid wave no edema Assessment/Plan Assessment/Plan: Assessment - EtOH cirrhosis (negative hepatitis serologies) - EtOH Hepatitis - not candidate for steroids due to elevated WBC - Ascites - azotemia, pre-renal vs HRS - jaundice - coagulopathy - guarded Recommendations - vitamin K - Trental - albumin trial - po as tolerated - supportive care - octreotide / midodrine Nadine Childers MD Mar 23, 2020 21:58
[2020-03-24] VITALS: BP 94/69
[2020-03-24 04:00] VITALS: BP 95/64
[2020-03-24 08:00] VITALS: BP 100/70
[2020-03-24 08:20] LABS: HEMATOCRIT 32.6 % (37.0-47.0); HEMOGLOBIN 10.7 G/DL (12.0-16.0); MEAN CORPUSCULAR VOLUME 90 FL (80-99); PLATELET COUNT 58 K/UL (150-450); RED CELL DISTRIBUTION WIDTH 16.4 % (11.6-14.8)
[2020-03-24 08:24] LABS: WHITE BLOOD COUNT 25.6 K/UL (4.8-10.8)
[2020-03-24 08:34] LABS: ALBUMIN 2.9 G/DL (3.4-5.0); ALBUMIN/GLOBULIN RATIO 0.9 (1.0-2.7); BILIRUBIN,TOTAL 9.5 MG/DL (0.2-1.0); CALCIUM 9.2 MG/DL (8.5-10.1); CREATININE 2.1 MG/DL (0.55-1.30); POTASSIUM 3.2 MMOL/L (3.5-5.1)
[2020-03-24] MEDS: cefTRIAXone 1 GM in NS 55 ML IVPB SCH (09:23)
[2020-03-24] MEDS: Spironolactone 50mg tab ORAL SCH (09:23)
[2020-03-24 09:25] LABS: BILIRUBIN,DIRECT 8.3 MG/DL (0.0-0.3)
[2020-03-24 12:00] VITALS: BP 88/62
[2020-03-24] MEDS: Folic Acid 1 MG, Magnesium Sulfate 2,000 MG, Multivitamin - 12 Injection 10 ML in Sodiu... IV SCH (12:16)
[2020-03-24] MEDS: Thiamine 100mg IVPB (Q24H) IVPB SCH ×2 (12:16)
--- NOTE | 2020-03-24 12:28 | General Progress Note ---
Subjective Allergies: Coded Allergies: No Known Allergies (Unverified , 03/20/20) Subjective weak Objective Last 24 Hour Vital Signs Date Time Temp Pulse Resp B/P (MAP) Pulse Ox O2 Delivery O2 Flow Rate FiO2 03/24/20 12:17 100/70 03/24/20 09:23 100/70 03/24/20 08:00 91.9 89 20 100/70 (80) 95 03/24/20 08:00 Room Air 03/24/20 07:31 84 03/24/20 04:00 Room Air 03/24/20 04:00 96.2 82 20 95/64 (74) 98 03/24/20 04:00 85 03/24/20 00:00 90 03/24/20 00:00 Room Air 03/24/20 00:00 96.5 96 20 94/69 (77) 96 03/23/20 22:26 126/80 03/23/20 20:07 Room Air 03/23/20 20:00 96.2 81 19 99/78 (85) 96 03/23/20 20:00 82 03/23/20 16:00 97.0 78 16 99/69 (79) 100 03/23/20 16:00 Room Air 03/23/20 16:00 75 03/23/20 16:00 75 03/23/20 15:00 Room Air Intake and Output 03/23/20 03/24/20 19:00 07:00 Intake Total 475 ml 530 ml Output Total 500 ml 220 ml Balance -25 ml 310 ml Intake Oral 350 ml 180 ml IV Total 125 ml 350 ml Output Urine Total 500 ml 220 ml # Voids 5 # Bowel Movements 4 Laboratory Tests 03/24/20 05:00: Urine Osmolality 330L, Urine Random Sodium 25 03/24/20 07:40: White Blood Count 25.6*H, Red Blood Count 3.60L, Hemoglobin 10.7L, Hematocrit 32.6L, Mean Corpuscular Volume 90, Mean Corpuscular Hemoglobin 29.8, Mean Corpuscular Hemoglobin Concent 32.9, Red Cell Distribution Width 16.4H, Platelet Count 58L, Mean Platelet Volume 13.3H, Neutrophils (%) (Auto) , Lymphocytes (%) (Auto) , Monocytes (%) (Auto) , Eosinophils (%) (Auto) , Basophils (%) (Auto) , Differential Total Cells Counted 100, Neutrophils % (Manual) 93H, Lymphocytes % (Manual) 4L, Monocytes % (Manual) 3, Eosinophils % (Manual) 0, Basophils % (Manual) 0, Band Neutrophils 0, Platelet Estimate DecreasedL, Platelet Morphology Normal, Hypochromasia 1+, Anisocytosis 1+, Sodium Level 139, Potassium Level 3.2L, Chloride Level 105, Carbon Dioxide Level 20L, Anion Gap 15, Blood Urea Nitrogen 41H, Creatinine 2.1H, Estimat Glomerular Filtration Rate 24.9, Glucose Level 113H, Calcium Level 9.2, Total Bilirubin 9.5H, Direct Bilirubin 8.3H, Aspartate Amino Transf (AST/SGOT) 45H, Alanine Aminotransferase (ALT/SGPT) 9L, Alkaline Phosphatase 250H, Total Protein 6.2L, Albumin 2.9L, Globulin 3.3, Albumin/Globulin Ratio 0.9L Height (Feet): 4 Height (Inches): 11.00 Weight (Pounds): 105 Cardiovascular: normal rate Respiratory/Chest: lungs clear Abdomen: distended Assessment/Plan Problem List: (1) Acute renal failure ICD Codes: N17.9 - Acute kidney failure, unspecified SNOMED: 88163988 Qualifiers: Qualified Codes: N17.9 - Acute kidney failure, unspecified (2) Cirrhosis ICD Codes: K74.60 - Unspecified cirrhosis of liver SNOMED: 09372125 Qualifiers: Qualified Codes: K70.31 - Alcoholic cirrhosis of liver with ascites (3) Anemia ICD Codes: D64.9 - Anemia, unspecified SNOMED: 367158842 Qualifiers: Qualified Codes: D64.9 - Anemia, unspecified (4) Sepsis ICD Codes: A41.9 - Sepsis, unspecified organism SNOMED: 31965555 (5) Hypokalemia ICD Codes: E87.6 - Hypokalemia SNOMED: 27754051 Assessment/Plan: abxs check Vit D Replete K follow labs PT ID consult Erick Diaz MD Mar 24, 2020 12:28
[2020-03-24] MEDS ORDERED: NS 500ML ONE (13:30)
[2020-03-24] MEDS ORDERED: NS 275ml ONE (13:30)
[2020-03-24 16:00] VITALS: BP 98/71
--- NOTE | 2020-03-24 19:45 | Consultation ---
DATE OF CONSULTATION: 03/24/2020 INFECTIOUS DISEASE CONSULTATION CONSULTING PHYSICIAN: Thom Diaz MD. PRIMARY ATTENDING PHYSICIAN: Erick Diaz MD. REASON FOR CONSULT: UTI, leukocytosis. HISTORY OF PRESENT ILLNESS: This is a 49-year-old female, admitted on March 20, because of nausea, vomiting, and diarrhea for one week. She had significant leukocytosis. At the time of admission, WBC was 28.4. She was found to have hyperbilirubinemia, anemia, and was found to have cirrhosis. PAST MEDICAL HISTORY: Denied any disease in the past. ALLERGIES: No known drug allergy. MEDICATIONS: Getting human albumin, pentoxifylline, spironolactone, rifaximin, thiamine, folic acid, magnesium sulfate, multivitamin, sodium chloride, midodrine, lipase/protease/amylase capsule, ceftriaxone, famotidine, morphine, Ambien, and milk of magnesia. SOCIAL HISTORY: She is single. Smoker of less than a pack a day. Used marijuana prior to admission. Drinking a bottle of vodka daily. REVIEW OF SYSTEMS: Does not feel good. No fever. No significant coughing. She has abdominal distention and pain. No problem passing urine. PHYSICAL EXAMINATION: VITAL SIGNS: Temperature 96.2, pulse 89, blood pressure 95/64. GENERAL APPEARANCE: The patient seems to be cachectic and has severe muscle atrophy. HEAD AND NECK: She has icterus in the sclerae. HEART: Normal rate. LUNGS: Clear. ABDOMEN: Distended with ascites. EXTREMITIES: She has no edema. NEUROLOGIC: She is awake, alert, responsive. LABORATORY AND DIAGNOSTIC DATA: Peritoneal fluid culture negative. COVID negative. Urine culture showed E. coli. Blood culture x2, negative. Sodium 139, potassium 3.2, chloride 105, bicarb 20, BUN 41, creatinine 2.1, glucose 113. Total bilirubin 9.5, direct bilirubin 8.3. AST 45, ALT 9, alkaline phosphatase is 250. Albumin 2.9. Hepatitis profile was negative. CT scan of the abdomen showed large volume ascites, cirrhosis, evidence of chronic calcifying pancreatitis, and evidence of bullous COPD. IMPRESSION: 1. UTI with E. coli. 2. Leukocytosis. 3. 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 4. COPD. 5. Anemia. 6. Thrombocytopenia. 7. Hypokalemia. 8. Likely alcoholic hepatitis. 9. Cachexia. RECOMMENDATION: We will continue with Rocephin. Prognosis seems to be poor. At the end of my exam, I thank Dr. Erick Diaz for involving me in the care of this patient. Thom Diaz M.D. DR: YARELIS JOB#: [id number] CC:
[2020-03-24 20:00] VITALS: BP 102/63
--- NOTE | 2020-03-24 20:07 | General Progress Note ---
Subjective Allergies: Coded Allergies: No Known Allergies (Unverified , 03/20/20) Subjective above noted No new complaints Bili lower Objective Last 24 Hour Vital Signs Date Time Temp Pulse Resp B/P (MAP) Pulse Ox O2 Delivery O2 Flow Rate FiO2 03/24/20 16:00 92.9 93 23 98/71 (80) 100 03/24/20 16:00 Room Air 03/24/20 15:24 99 03/24/20 12:17 100/70 03/24/20 12:00 90.7 95 20 88/62 (71) 94 03/24/20 12:00 Room Air 03/24/20 11:40 90 03/24/20 09:23 100/70 03/24/20 08:00 91.9 89 20 100/70 (80) 95 03/24/20 08:00 Room Air 03/24/20 07:31 84 03/24/20 04:00 Room Air 03/24/20 04:00 96.2 82 20 95/64 (74) 98 03/24/20 04:00 85 03/24/20 00:00 90 03/24/20 00:00 Room Air 03/24/20 00:00 96.5 96 20 94/69 (77) 96 03/23/20 22:26 126/80 03/23/20 20:07 Room Air Intake and Output 03/23/20 03/24/20 19:00 07:00 Intake Total 475 ml 530 ml Output Total 500 ml 220 ml Balance -25 ml 310 ml Intake Oral 350 ml 180 ml IV Total 125 ml 350 ml Output Urine Total 500 ml 220 ml # Voids 5 # Bowel Movements 4 Laboratory Tests 03/24/20 05:00: Urine Osmolality 330L, Urine Random Sodium 25 03/24/20 07:40: White Blood Count 25.6*H, Red Blood Count 3.60L, Hemoglobin 10.7L, Hematocrit 32.6L, Mean Corpuscular Volume 90, Mean Corpuscular Hemoglobin 29.8, Mean Corpuscular Hemoglobin Concent 32.9, Red Cell Distribution Width 16.4H, Platelet Count 58L, Mean Platelet Volume 13.3H, Neutrophils (%) (Auto) , Lymphocytes (%) (Auto) , Monocytes (%) (Auto) , Eosinophils (%) (Auto) , Basophils (%) (Auto) , Differential Total Cells Counted 100, Neutrophils % (Manual) 93H, Lymphocytes % (Manual) 4L, Monocytes % (Manual) 3, Eosinophils % (Manual) 0, Basophils % (Manual) 0, Band Neutrophils 0, Platelet Estimate DecreasedL, Platelet Morphology Normal, Hypochromasia 1+, Anisocytosis 1+, Sodium Level 139, Potassium Level 3.2L, Chloride Level 105, Carbon Dioxide Level 20L, Anion Gap 15, Blood Urea Nitrogen 41H, Creatinine 2.1H, Estimat Glomerular Filtration Rate 24.9, Glucose Level 113H, Calcium Level 9.2, Total Bilirubin 9.5H, Direct Bilirubin 8.3H, Aspartate Amino Transf (AST/SGOT) 45H, Alanine Aminotransferase (ALT/SGPT) 9L, Alkaline Phosphatase 250H, Total Protein 6.2L, Albumin 2.9L, Globulin 3.3, Albumin/Globulin Ratio 0.9L Height (Feet): 4 Height (Inches): 11.00 Weight (Pounds): 105 Objective cathexic woman with distended abdomen NCAT supple CTA RR abd distended, (+) fluid wave no edema Assessment/Plan Assessment/Plan: Assessment - EtOH cirrhosis (negative hepatitis serologies) - EtOH Hepatitis - not candidate for steroids due to elevated WBC - Ascites - holding off on paracentesis due to azotemia - azotemia, pre-renal vs HRS - jaundice - coagulopathy - guarded Recommendations - vitamin K - Trental - albumin trial - abx - po as tolerated - supportive care - octreotide / midodrine Nadine Childers MD Mar 24, 2020 20:07
[2020-03-25] VITALS: BP 103/70
[2020-03-25 04:00] VITALS: BP 84/62
[2020-03-25 06:51] LABS: ALBUMIN 2.7 G/DL (3.4-5.0); ALBUMIN/GLOBULIN RATIO 0.9 (1.0-2.7); BILIRUBIN,TOTAL 8.9 MG/DL (0.2-1.0); CALCIUM 8.8 MG/DL (8.5-10.1); CREATININE 1.9 MG/DL (0.55-1.30); POTASSIUM 3.3 MMOL/L (3.5-5.1)
[2020-03-25 06:53] LABS: BILIRUBIN,DIRECT 7.1 MG/DL (0.0-0.3)
[2020-03-25 08:00] VITALS: BP 92/60
[2020-03-25] MEDS: Spironolactone 50mg tab ORAL SCH (09:40)
[2020-03-25] MEDS: cefTRIAXone 1 GM in NS 55 ML IVPB SCH (09:40)
--- NOTE | 2020-03-25 10:55 | Infectious Diseases Prog Note ---
Assessment/Plan Assessment/Plan IMPRESSION: 1. UTI with E. coli. 2. Leukocytosis. 3. 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 4. COPD. 5. Anemia. 6. Thrombocytopenia. 7. Hypokalemia. 8. Likely alcoholic hepatitis. 9. Cachexia. RECOMMENDATION: We will continue with Rocephin. Repeat CXR Prognosis seems to be poor. Subjective ROS Limited/Unobtainable: No Constitutional: Reports: other - feels cold Respiratory: Reports: shortness of breath, productive cough Cardiovascular: Reports: no symptoms Gastrointestinal/Abdominal: Reports: no symptoms Genitourinary: Reports: no symptoms Allergies: Coded Allergies: No Known Allergies (Unverified , 03/20/20) Objective Last 24 Hour Vital Signs Date Time Temp Pulse Resp B/P (MAP) Pulse Ox O2 Delivery O2 Flow Rate FiO2 03/25/20 09:40 92/60 03/25/20 08:00 95.0 92 20 92/60 (71) 98 03/25/20 04:00 Room Air 03/25/20 04:00 79 03/25/20 04:00 97.7 104 26 84/62 (69) 95 03/25/20 00:00 Room Air 03/25/20 00:00 94.6 89 26 103/70 (81) 95 03/24/20 23:42 90 03/24/20 21:05 99 Non-Rebreather 15.0 100 03/24/20 20:00 Room Air 03/24/20 20:00 97.0 90 26 102/63 (76) 100 03/24/20 19:51 86 03/24/20 16:00 92.9 93 23 98/71 (80) 100 03/24/20 16:00 Room Air 03/24/20 15:24 99 03/24/20 12:17 100/70 03/24/20 12:00 90.7 95 20 88/62 (71) 94 03/24/20 12:00 Room Air 03/24/20 11:40 90 Height (Feet): 4 Height (Inches): 11.00 Weight (Pounds): 105 HEENT: mucous membranes moist Respiratory/Chest: lungs clear, other - oxygen by venturi mask Cardiovascular: normal rate Abdomen: distended Extremities: no edema Neurologic/Psychiatric: alert, responsive Musculoskeletal: atrophy Laboratory Tests Test 03/25/20 04:31 03/25/20 07:40 Sodium Level 140 MMOL/L (136-145) Potassium Level 3.3 MMOL/L (3.5-5.1) L Chloride Level 107 MMOL/L (98-107) Carbon Dioxide Level 15 MMOL/L (21-32) L Anion Gap 18 mmol/L (5-15) H Blood Urea Nitrogen 39 mg/dL (7-18) H Creatinine 1.9 MG/DL (0.55-1.30) H Estimat Glomerular Filtration Rate 27.9 mL/min (>60) Glucose Level 107 MG/DL (74-106) H Calcium Level 8.8 MG/DL (8.5-10.1) Total Bilirubin 8.9 MG/DL (0.2-1.0) H Direct Bilirubin 7.1 MG/DL (0.0-0.3) H Aspartate Amino Transf (AST/SGOT) 55 U/L (15-37) H Alanine Aminotransferase (ALT/SGPT) 15 U/L (12-78) Alkaline Phosphatase 268 U/L (46-116) H Total Protein 5.8 G/DL (6.4-8.2) L Albumin 2.7 G/DL (3.4-5.0) L Globulin 3.1 g/dL Albumin/Globulin Ratio 0.9 (1.0-2.7) L HIV (1&2) Antibody Rapid Negative (NEGATIVE) Current Medications Medications (Trade) Dose Ordered Sig/Joanna Route PRN Reason Start Time Stop Time Status Last Admin Dose Admin Albumin Human 50 ml @ 50 mls/hr EVERY 6 HOURS IV 03/24/20 00:00 03/25/20 23:59 03/25/20 05:36 Amylase/Lipase/ Protease (Hallie TAYLOR 36,000 units cap) 1 ea WITH SNACKS PRN ORAL give with snacks 03/21/20 09:30 06/19/20 09:29 03/22/20 12:10 Ceftriaxone Sodium 1 gm/ Sodium Chloride 55 ml @ 110 mls/hr DAILY IVPB 03/21/20 09:00 03/28/20 08:59 03/25/20 09:40 Dextrose (Dextrose 50%) 25 ml Q30M PRN IV Hypoglycemia 03/20/20 20:45 06/18/20 20:44 Dextrose (Dextrose 50%) 50 ml Q30M PRN IV Hypoglycemia 03/20/20 20:45 06/18/20 20:44 Famotidine (Pepcid) 20 mg BID ORAL 03/20/20 21:35 06/18/20 21:34 03/25/20 09:40 Folic Acid 1 mg/ Magnesium Sulfate 2000 mg/ Multivitamins 10 ml/Sodium Chloride 1,014.2 ml @ 125 mls/ hr Q24H IV 03/21/20 12:00 04/20/20 11:59 03/24/20 12:16 Magnesium Hydroxide (Mom) 30 ml HSPRN PRN ORAL Constipation 03/20/20 20:45 04/19/20 20:44 Midodrine (Pro-Amatine) 5 mg TID ORAL 03/21/20 10:00 06/19/20 09:59 03/25/20 09:40 Morphine Sulfate (Morphine Sulfate) 2 mg Q3H PRN IVP Moderate Pain (Pain Scale 4-6) 03/20/20 21:00 03/27/20 20:59 03/23/20 00:28 Morphine Sulfate (Morphine Sulfate) 4 mg Q3H PRN IVP Severe Pain (Pain Scale 7-10) 03/20/20 21:00 03/27/20 20:59 Pentoxifylline (TRENtal) 400 mg THREE TIMES A DAY ORAL 03/23/20 22:00 06/21/20 21:59 03/25/20 09:40 Rifaximin (Xifaxan) 550 mg EVERY 12 HOURS ORAL 03/22/20 21:00 03/29/20 20:59 03/25/20 09:40 Spironolactone (Aldactone) 50 mg DAILY ORAL 03/22/20 09:00 04/21/20 08:59 03/25/20 09:40 Thiamine HCl 100 mg/Dextrose 56 ml @ 112 mls/hr Q24H IVPB 03/21/20 12:00 04/20/20 11:59 03/24/20 12:16 Zolpidem Tartrate (Ambien) 5 mg DAILYPRN PRN ORAL Insomnia 03/20/20 20:45 03/27/20 20:44 03/22/20 23:38 Thom Diaz MD Mar 25, 2020 10:55
[2020-03-25] MEDS: Folic Acid 1 MG, Magnesium Sulfate 2,000 MG, Multivitamin - 12 Injection 10 ML in Sodiu... IV SCH (11:57)
[2020-03-25] MEDS: Thiamine 100mg IVPB (Q24H) IVPB SCH ×2 (11:57)
[2020-03-25 12:00] VITALS: BP 120/57
--- NOTE | 2020-03-25 13:39 | Diagnostic Imaging Report ---
Indication: Dyspnea Technique: XRAY Chest 1v Comparison: 03/20/2020 Findings: Lung volumes are low. There is worsening aeration with development of hazy opacity in the right lung base partially silhouetting the right heart border. Possibility of a small right pleural effusion not excluded. No pneumothorax. No acute osseous abnormality. Impression: Worsening aeration with development of hazy opacities at the right lung base, partially obscuring the right heart border. Findings may be related to right middle lobe atelectasis versus pneumonia. Clinical correlation and follow-up recommended. Vascular interstitial prominence with patchy perihilar opacities possibly exaggerated by low lung volumes however additional foci of pneumonia not excluded. Follow-up recommended.
[2020-03-25] MEDS: Lactulose 20gm/30ml UDC ORAL SCH ×2 (14:34→21:04)
[2020-03-25 16:00] VITALS: BP 85/60
--- NOTE | 2020-03-25 18:12 | General Progress Note ---
Subjective Allergies: Coded Allergies: No Known Allergies (Unverified , 03/20/20) Subjective C/O SOB Objective Last 24 Hour Vital Signs Date Time Temp Pulse Resp B/P (MAP) Pulse Ox O2 Delivery O2 Flow Rate FiO2 03/25/20 16:00 94.2 81 18 85/60 (68) 95 03/25/20 16:00 85 03/25/20 16:00 Nasal Cannula 5.0 03/25/20 13:11 92/60 03/25/20 12:00 Nasal Cannula 5.0 03/25/20 12:00 95.9 84 18 120/57 (78) 95 03/25/20 12:00 90 03/25/20 09:40 92/60 03/25/20 08:00 95.0 92 20 92/60 (71) 98 03/25/20 08:00 Venturi Mask 10.0 03/25/20 08:00 89 03/25/20 04:00 Room Air 03/25/20 04:00 79 03/25/20 04:00 97.7 104 26 84/62 (69) 95 03/25/20 00:00 Room Air 03/25/20 00:00 94.6 89 26 103/70 (81) 95 03/24/20 23:42 90 03/24/20 21:05 99 Non-Rebreather 15.0 100 03/24/20 20:00 Room Air 03/24/20 20:00 97.0 90 26 102/63 (76) 100 03/24/20 19:51 86 Intake and Output 03/24/20 03/25/20 19:00 07:00 Intake Total 240 ml 150 ml Output Total 200 ml 150 ml Balance 40 ml 0 ml Intake Oral 240 ml 50 ml IV Total 100 ml Output Urine Total 200 ml 150 ml # Bowel Movements 1 Laboratory Tests 03/25/20 04:31: Sodium Level 140, Potassium Level 3.3L, Chloride Level 107, Carbon Dioxide Level 15L, Anion Gap 18H, Blood Urea Nitrogen 39H, Creatinine 1.9H, Estimat Glomerular Filtration Rate 27.9, Glucose Level 107H, Calcium Level 8.8, Total Bilirubin 8.9H, Direct Bilirubin 7.1H, Aspartate Amino Transf (AST/SGOT) 55H, Alanine Aminotransferase (ALT/SGPT) 15, Alkaline Phosphatase 268H, Total Protein 5.8L, Albumin 2.7L, Globulin 3.1, Albumin/Globulin Ratio 0.9L 03/25/20 07:40: HIV (1&2) Antibody Rapid Negative Height (Feet): 4 Height (Inches): 11.00 Weight (Pounds): 105 Cardiovascular: normal rate Respiratory/Chest: lungs clear Abdomen: distended Edema: no edema noted Generalized Assessment/Plan Problem List: (1) Acute renal failure ICD Codes: N17.9 - Acute kidney failure, unspecified SNOMED: 68767844 Qualifiers: Qualified Codes: N17.9 - Acute kidney failure, unspecified (2) Cirrhosis ICD Codes: K74.60 - Unspecified cirrhosis of liver SNOMED: 95244042 Qualifiers: Qualified Codes: K70.31 - Alcoholic cirrhosis of liver with ascites (3) Anemia ICD Codes: D64.9 - Anemia, unspecified SNOMED: 508369254 Qualifiers: Qualified Codes: D64.9 - Anemia, unspecified (4) Sepsis ICD Codes: A41.9 - Sepsis, unspecified organism SNOMED: 17587519 (5) Hypokalemia ICD Codes: E87.6 - Hypokalemia SNOMED: 64345822 Assessment/Plan: abxs check Vit D Replete K follow labs PT ID consult needs paracentesis Discussed with Erick High MD Mar 25, 2020 18:12
[2020-03-25 20:00] VITALS: BP 84/58
--- NOTE | 2020-03-25 20:16 | General Progress Note ---
Subjective Allergies: Coded Allergies: No Known Allergies (Unverified , 03/20/20) Subjective above noted d/w RN this am d/w Renal this pm patient conversant/responsive, but appeared slower to respond this am so lactulose was started, for Rx of encephalopathy later in the day, patient reported to be more SOB Objective Last 24 Hour Vital Signs Date Time Temp Pulse Resp B/P (MAP) Pulse Ox O2 Delivery O2 Flow Rate FiO2 03/25/20 19:06 99 Nasal Cannula 5.0 40 03/25/20 18:22 85/60 03/25/20 16:00 94.2 81 18 85/60 (68) 95 03/25/20 16:00 85 03/25/20 16:00 Nasal Cannula 5.0 03/25/20 13:11 92/60 03/25/20 12:00 Nasal Cannula 5.0 03/25/20 12:00 95.9 84 18 120/57 (78) 95 03/25/20 12:00 90 03/25/20 09:40 92/60 03/25/20 08:00 95.0 92 20 92/60 (71) 98 03/25/20 08:00 Venturi Mask 10.0 03/25/20 08:00 89 03/25/20 04:00 Room Air 03/25/20 04:00 79 03/25/20 04:00 97.7 104 26 84/62 (69) 95 03/25/20 00:00 Room Air 03/25/20 00:00 94.6 89 26 103/70 (81) 95 03/24/20 23:42 90 03/24/20 21:05 99 Non-Rebreather 15.0 100 Intake and Output 03/24/20 03/25/20 19:00 07:00 Intake Total 240 ml 150 ml Output Total 200 ml 150 ml Balance 40 ml 0 ml Intake Oral 240 ml 50 ml IV Total 100 ml Output Urine Total 200 ml 150 ml # Bowel Movements 1 Laboratory Tests 03/25/20 04:31: Sodium Level 140, Potassium Level 3.3L, Chloride Level 107, Carbon Dioxide Level 15L, Anion Gap 18H, Blood Urea Nitrogen 39H, Creatinine 1.9H, Estimat Glomerular Filtration Rate 27.9, Glucose Level 107H, Calcium Level 8.8, Total Bilirubin 8.9H, Direct Bilirubin 7.1H, Aspartate Amino Transf (AST/SGOT) 55H, Alanine Aminotransferase (ALT/SGPT) 15, Alkaline Phosphatase 268H, Total Protein 5.8L, Albumin 2.7L, Globulin 3.1, Albumin/Globulin Ratio 0.9L 03/25/20 07:40: HIV (1&2) Antibody Rapid Negative Height (Feet): 4 Height (Inches): 11.00 Weight (Pounds): 105 Objective cathexic woman with distended abdomen NCAT supple coarse BS RR abd distended, (+) fluid wave, not tense no edema Assessment/Plan Assessment/Plan: Assessment - EtOH cirrhosis (negative hepatitis serologies) - EtOH Hepatitis - not candidate for steroids due to elevated WBC - Ascites - can perform therapeutic paracentesis due to dyspnea, but may trigger renal decline - will need albumen support with paracentesis - Acidosis worsening and a significant concern - suspect sepsis - PNA and hypoxia --> possible ARDS in evolution - dyspnea - suspect due to acidosis and sepsis - paracentesis may not completely resolve the Sx - azotemia, pre-renal vs HRS - jaundice - coagulopathy - guarded Recommendations - paracentesis - rec pulmonary consult and ABG evaluation - Trental - abx - po as tolerated, if awake - may need to be intubated tonight - octreotide / midodrine Nadine Childers MD Mar 25, 2020 20:16
[2020-03-25] MEDS ORDERED: Tubing IV Secondary IV ONE (21:12)
[2020-03-26] VITALS (28 sets, daily range): BP systolic 67–105; BP diastolic 48–69
[2020-03-26 05:11] LABS: HEMATOCRIT 29.7 % (37.0-47.0); HEMOGLOBIN 8.9 G/DL (12.0-16.0); MEAN CORPUSCULAR VOLUME 97 FL (80-99); PLATELET COUNT 87 K/UL (150-450); RED BLOOD COUNT 3.06 M/UL (4.20-5.40); RED CELL DISTRIBUTION WIDTH 18.2 % (11.6-14.8)
[2020-03-26 05:38] LABS: WHITE BLOOD COUNT 40.1 K/UL (4.8-10.8)
[2020-03-26 05:39] LABS: BILIRUBIN,TOTAL 9.1 MG/DL (0.2-1.0); CALCIUM 8.9 MG/DL (8.5-10.1); CREATININE 2.2 MG/DL (0.55-1.30); POTASSIUM 3.8 MMOL/L (3.5-5.1)
[2020-03-26 06:02] LABS: BILIRUBIN,DIRECT 7.2 MG/DL (0.0-0.3)
[2020-03-26] MEDS: Lactulose 20gm/30ml UDC ORAL SCH ×3 (06:02→22:00)
[2020-03-26] MEDS ORDERED: Sodium Bicarbonate 50ml Carp ONE ×3 (06:36→22:09)
--- NOTE | 2020-03-26 08:17 | Emergency Room Report ---
History of Present Illness General Chief Complaint: Abdominal Pain Source: Patient Present Illness Allergies: Coded Allergies: No Known Allergies (Unverified , 03/20/20) COVID-19 Screening Contact w/high risk pt: No Experienced COVID-19 symptoms?: No COVID-19 Testing performed COMPUTER TEACHER: No COVID-19 Screening: Negative COVID-19 Patient History Now: No Nursing Documentation-PM Past Medical History: No Stated History Hx Cardiac Problems: No Hx Cancer: No Hx Gastrointestinal Problems: Yes Hx Neurological Problems: No Physical Exam Vital Signs Date Time Temp Pulse Resp B/P (MAP) Pulse Ox O2 Delivery O2 Flow Rate FiO2 03/22/20 08:00 84 03/22/20 08:00 Room Air 03/22/20 08:00 97.0 20 86/47 (60) 95 03/24/20 21:05 15.0 100 Procedures Central Line Central Line : Consent: Emergent Central Line Lumen: triple Maximal Sterile Barrier Tech: yes cap, yes mask, yes sterile gown, yes sterile gloves, yes large sterile sheet, yes hand hygiene, yes chlorhexidine prep Central Line Postion: femoral (R) Vessel visualized with U/S: Right Femoral Vein Ultrasound Findings: Collapsible Vessel, Vessel Patent, Color flow present, Visualize vessel puncture Complications: none Central Line Post Position: sutured, good blood return Attempts: One Patient Tolerated: Well Complications: None CPR/Code Blue CPR/Code Blue Narrative See MDM section of this note for full details Intubation Intubation : Consent: Emergent Intubation Method: orotracheal Tube Size (cm): 7.5 Breath Sounds after Intubation: equal Intubation Complications: no complications Patient Tolerated: Well Complications: None Medical Decision Making Diagnostic Impression: Primary Impression: Hepatitis Additional Impressions: Acute renal failure Qualified Codes: N17.9 - Acute kidney failure, unspecified Anemia Qualified Codes: D64.9 - Anemia, unspecified Cirrhosis Qualified Codes: K70.31 - Alcoholic cirrhosis of liver with ascites Hypoglycemia Leukocytosis Qualified Codes: D72.829 - Elevated white blood cell count, unspecified History of alcohol abuse UTI (urinary tract infection) Qualified Codes: N39.0 - Urinary tract infection, site not specified ER Course Called to patient bedside for CODE BLUE cardiac arrest. Reportedly patient became bradycardic and then went to asystole. I arrived with ongoing compress ions. Patient had no IV access and intraosseous line was placed by me. Received epinephrine and bicarb per ACLS protocols. Patient was intubated on first attempt by direct visualization by me. After approximately 20 minutes the patient regained pulses. Blood pressure was adequate. Transfer to the ICU. I placed a central line in the ICU. Recall as needed. Last Vital Signs Date Time Temp Pulse Resp B/P (MAP) Pulse Ox O2 Delivery O2 Flow Rate FiO2 03/26/20 06:31 90 20 100 03/26/20 04:00 97.5 105/62 (76) 97 03/26/20 04:00 Nasal Cannula 5.0 Disposition: ADMITTED INPATIENT Condition: Critical Scripts No Active Prescriptions or Reported Meds Referrals: [facility]ERR[facility] (PCP) Jose Le MD Mar 26, 2020 08:17
[2020-03-26] MEDS: Spironolactone 50mg tab ORAL SCH (09:00)
[2020-03-26] MEDS: cefTRIAXone 1 GM in NS 55 ML IVPB SCH (10:01)
--- NOTE | 2020-03-26 12:00 | Consultation ---
DATE OF CONSULTATION: 03/26/2020 PULMONARY CONSULTATION HISTORY OF PRESENT ILLNESS: This is a 49-year-old female admitted to the hospital on 03/19/2020 with diarrhea, vomiting. She has a history of daily alcohol use and marijuana usage. The patient was seen and admitted and seen by multiple consultants for UTI, leukocytosis likely alcoholic hepatitis as well as ascites with cirrhosis. In the last 24 hours, the patient has had emergent Code Blue and has been intubated. At this time, she remains intubated, however, she is awake and responsive. PAST MEDICAL HISTORY: Notable for likely: 1. Chronic alcoholic liver cirrhosis as well as alcoholic hepatitis. 2. Tobacco use. 3. Alcohol use. 4. Substance abuse. SOCIAL HISTORY: She lives in a retirement. REVIEW OF SYSTEMS: Not obtainable. PHYSICAL EXAMINATION: GENERAL: Reveals a 49-year-old female. VITAL SIGNS: Blood pressure at this time is 79/60, heart rate 104, respiratory rate 36, O2 saturation 98% on assist-control mechanical ventilation, , PEEP of 5, rate of 20, tidal volume 450. HEENT: Unremarkable. Endotracheal tube is in place. CHEST: Clear breath sounds bilaterally. ABDOMEN: Soft. EXTREMITIES: There is no edema. LABORATORY AND DIAGNOSTIC DATA: X-ray chest obtained today shows with partial atelectasis, right lower lobe. IMPRESSION: 1. Respiratory failure. 2. Status post Code Blue. 3. Marked leukocytosis 4. Sepsis 5. Hepatic failure. 6. Renal failure. 7. Significant metabolic acidosis. DISCUSSION: The patient is critically ill with respiratory failure. She also has hepatic failure and renal failure suspicious for hepatorenal syndrome. Prognosis is grave. 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 Agree with broad-spectrum antibiotics. Pulmonary hygiene. We will continue vent as is. The patient will benefit from lactulose. We will follow carefully. Lemuel uJstice M.D. DR: Diana JOB#: [id number] CC:
[2020-03-26] MEDS: Folic Acid 1 MG, Magnesium Sulfate 2,000 MG, Multivitamin - 12 Injection 10 ML in Sodiu... IV SCH (12:11)
[2020-03-26] MEDS: Thiamine 100mg IVPB (Q24H) IVPB SCH ×2 (12:12)
--- NOTE | 2020-03-26 12:44 | Infectious Diseases Prog Note ---
Assessment/Plan Assessment/Plan IMPRESSION: 1. UTI with E. coli. 2. Leukocytosis worsening 3. 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 4. COPD. 5. Anemia. 6. Thrombocytopenia. 7. Hypokalemia. 8. Likely alcoholic hepatitis. 9. Cachexia. 10. Pneumonia/ atelectasis 11. cardiopulmonary arrest 12. renal failure RECOMMENDATION: Change Rocephin to Zosyn Sputum culture Prognosis seems to be poor. Subjective ROS Limited/Unobtainable: Yes Constitutional: Reports: other - hypothermic Respiratory: Reports: other - intubated Cardiovascular: Reports: other - coded in am Neurologic: Reports: confusion, other - on restraint Allergies: Coded Allergies: No Known Allergies (Unverified , 03/20/20) Objective Last 24 Hour Vital Signs Date Time Temp Pulse Resp B/P (MAP) Pulse Ox O2 Delivery O2 Flow Rate FiO2 03/26/20 12:03 104 03/26/20 12:01 103 34 81/50 (60) 98 03/26/20 12:00 Mechanical Ventilator 03/26/20 11:20 104 36 90 03/26/20 11:00 109 31 90/69 (76) 95 03/26/20 10:00 104 31 79/62 (68) 98 03/26/20 09:50 90 03/26/20 09:00 99 28 81/58 (66) 100 03/26/20 08:50 102 31 90 03/26/20 08:00 Mechanical Ventilator 03/26/20 08:00 94 24 95/69 (78) 100 03/26/20 08:00 94 03/26/20 08:00 100 03/26/20 07:10 90 20 90 Mechanical Ventilator 100 03/26/20 07:10 90 Mechanical Ventilator 100 03/26/20 06:31 90 20 100 03/26/20 04:00 97 03/26/20 04:00 97.5 82 18 105/62 (76) 97 03/26/20 04:00 Nasal Cannula 5.0 03/26/20 00:00 97.1 90 18 90/57 (68) 96 03/26/20 00:00 89 03/26/20 00:00 Nasal Cannula 5.0 03/25/20 20:00 96 03/25/20 20:00 96.1 96 18 84/58 (67) 95 03/25/20 20:00 Nasal Cannula 5.0 03/25/20 19:06 99 Nasal Cannula 5.0 40 03/25/20 18:22 85/60 03/25/20 16:00 94.2 81 18 85/60 (68) 95 03/25/20 16:00 85 03/25/20 16:00 Nasal Cannula 5.0 03/25/20 13:11 92/60 Height (Feet): 4 Height (Inches): 11.00 Weight (Pounds): 105 HEENT: other - orally intubated, icterus Respiratory/Chest: other - on ventilator Cardiovascular: tachycardia Abdomen: distended Extremities: no edema Neurologic/Psychiatric: disoriented, other - opens eyes Musculoskeletal: atrophy Laboratory Tests Test 03/26/20 03:10 03/26/20 08:21 White Blood Count 40.1 K/UL (4.8-10.8) *H Red Blood Count 3.06 M/UL (4.20-5.40) L Hemoglobin 8.9 G/DL (12.0-16.0) L Hematocrit 29.7 % (37.0-47.0) L Mean Corpuscular Volume 97 FL (80-99) Mean Corpuscular Hemoglobin 29.0 PG (27.0-31.0) Mean Corpuscular Hemoglobin Concent 29.9 G/DL (32.0-36.0) L Red Cell Distribution Width 18.2 % (11.6-14.8) H Platelet Count 87 K/UL (150-450) L Mean Platelet Volume 14.8 FL (6.5-10.1) H Neutrophils (%) (Auto) % (45.0-75.0) Lymphocytes (%) (Auto) % (20.0-45.0) Monocytes (%) (Auto) % (1.0-10.0) Eosinophils (%) (Auto) % (0.0-3.0) Basophils (%) (Auto) % (0.0-2.0) Differential Total Cells Counted 100 Neutrophils % (Manual) 79 % (45-75) H Lymphocytes % (Manual) 7 % (20-45) L Monocytes % (Manual) 2 % (1-10) Eosinophils % (Manual) 0 % (0-3) Basophils % (Manual) 0 % (0-2) Band Neutrophils 12 % (0-8) H Platelet Estimate Decreased L Platelet Morphology See comment Giant Platelets Rare Hypochromasia 2+ Anisocytosis 2+ Macrocytosis 1+ Prothrombin Time 21.1 SEC (9.30-11.50) H Prothromb Time International Ratio 2.0 (0.9-1.1) H Sodium Level 143 MMOL/L (136-145) Potassium Level 3.8 MMOL/L (3.5-5.1) Chloride Level 109 MMOL/L (98-107) H Carbon Dioxide Level 14 MMOL/L (21-32) L Anion Gap 20 mmol/L (5-15) H Blood Urea Nitrogen 35 mg/dL (7-18) H Creatinine 2.2 MG/DL (0.55-1.30) H Estimat Glomerular Filtration Rate 23.5 mL/min (>60) Glucose Level 99 MG/DL (74-106) Lactic Acid Level 7.00 mmol/L (0.4-2.0) H Calcium Level 8.9 MG/DL (8.5-10.1) Magnesium Level 3.9 MG/DL (1.8-2.4) H Total Bilirubin 9.1 MG/DL (0.2-1.0) H Direct Bilirubin 7.2 MG/DL (0.0-0.3) H Aspartate Amino Transf (AST/SGOT) 70 U/L (15-37) H Alanine Aminotransferase (ALT/SGPT) 13 U/L (12-78) Alkaline Phosphatase 262 U/L (46-116) H Ammonia 79 umol/L (11-32) H Total Protein 6.0 G/DL (6.4-8.2) L Albumin 3.0 G/DL (3.4-5.0) L Globulin 3.0 g/dL Albumin/Globulin Ratio 1.0 (1.0-2.7) Arterial Blood pH 7.182 (7.350-7.450) Arterial Blood Partial Pressure CO2 31.6 mmHg (35.0-45.0) L Arterial Blood Partial Pressure O2 152.2 mmHg (75.0-100.0) H Arterial Blood HCO3 11.6 mmol/L (22.0-26.0) *L Arterial Blood Oxygen Saturation 98.1 % (95-100) Arterial Blood Base Excess -15.5 (-2-2) *L Shaun Test Positive Current Medications Medications (Trade) Dose Ordered Sig/Joanna Route PRN Reason Start Time Stop Time Status Last Admin Dose Admin Amylase/Lipase/ Protease (Hallie TAYLOR 36,000 units cap) 1 ea WITH SNACKS PRN ORAL give with snacks 03/21/20 09:30 06/19/20 09:29 03/22/20 12:10 Ceftriaxone Sodium 1 gm/ Sodium Chloride 55 ml @ 110 mls/hr DAILY IVPB 03/21/20 09:00 03/28/20 08:59 03/26/20 10:01 Dextrose (Dextrose 50%) 25 ml Q30M PRN IV Hypoglycemia 03/20/20 20:45 06/18/20 20:44 Dextrose (Dextrose 50%) 50 ml Q30M PRN IV Hypoglycemia 03/20/20 20:45 06/18/20 20:44 Famotidine (Pepcid) 20 mg BID ORAL 03/20/20 21:35 06/18/20 21:34 03/25/20 18:22 Folic Acid 1 mg/ Magnesium Sulfate 2000 mg/ Multivitamins 10 ml/Sodium Chloride 1,014.2 ml @ 125 mls/ hr Q24H IV 03/21/20 12:00 04/20/20 11:59 03/26/20 12:11 Lactulose (Cephulac) 30 gm EVERY 8 HOURS ORAL 03/25/20 14:00 04/24/20 13:59 03/26/20 06:02 Magnesium Hydroxide (Mom) 30 ml HSPRN PRN ORAL Constipation 03/20/20 20:45 04/19/20 20:44 Midodrine (Pro-Amatine) 5 mg TID ORAL 03/21/20 10:00 06/19/20 09:59 03/25/20 18:21 Morphine Sulfate (Morphine Sulfate) 2 mg Q3H PRN IVP Moderate Pain (Pain Scale 4-6) 03/20/20 21:00 03/27/20 20:59 03/23/20 00:28 Morphine Sulfate (Morphine Sulfate) 4 mg Q3H PRN IVP Severe Pain (Pain Scale 7-10) 03/20/20 21:00 03/27/20 20:59 Pentoxifylline (TRENtal) 400 mg THREE TIMES A DAY ORAL 03/23/20 22:00 06/21/20 21:59 03/25/20 18:22 Rifaximin (Xifaxan) 550 mg EVERY 12 HOURS ORAL 03/22/20 21:00 03/29/20 20:59 03/25/20 21:04 Spironolactone (Aldactone) 50 mg DAILY ORAL 03/22/20 09:00 04/21/20 08:59 03/25/20 09:40 Thiamine HCl 100 mg/Dextrose 56 ml @ 112 mls/hr Q24H IVPB 03/21/20 12:00 04/20/20 11:59 03/26/20 12:12 Zolpidem Tartrate (Ambien) 5 mg DAILYPRN PRN ORAL Insomnia 03/20/20 20:45 03/27/20 20:44 03/22/20 23:38 Thom Diaz MD Mar 26, 2020 12:44
[2020-03-26] MEDS: Piperacillin/Tazobactam 3.375 GM in NS 110 ML IVPB SCH ×2 (13:07→20:54)
--- NOTE | 2020-03-26 13:23 | Diagnostic Imaging Report ---
Indication: Reason For Exam: [facility] Technique: AP views of the abdomen Comparison: Same day chest radiograph; CT abdomen pelvis dated 03/20/2020 Findings: Bypass pattern is nonspecific. Diffuse increased density of the abdomen consistent with large volume ascites. Coarse calcifications are noted in the expected location of the pancreatic parenchyma. Enteric tube terminates in expected location of the distal stomach. Lung bases demonstrate diffuse interstitial opacities as well as low lying endotracheal tube, better evaluated on same-day chest radiograph. IMPRESSION: 1. Appropriately positioned enteric tube. 2. Nonspecific bowel gas pattern. 3. Large line ascites.
--- NOTE | 2020-03-26 13:27 | Diagnostic Imaging Report ---
Indication: Reason For Exam: S/P INTUB Technique: Single AP view of the chest. Comparison: Chest radiograph dated 03/25/2020 Findings: The cardiomediastinal silhouette is unchanged in appearance. Interval increase in upper lobe predominant airspace opacities. Unchanged perihilar airspace opacities. Diffuse interstitial opacities are again noted. No pneumothorax or increasing pleural effusion. Interval placement of endotracheal tube, which terminates in the right mainstem bronchus. Placement of enteric tube, which terminates in the expected location of the distal stomach. IMPRESSION: 1. Right mainstem bronchus intubation. Retraction by 2 to 3 cm is recommended. 2. Worsening aeration of the lungs, with increasing upper lobe airspace opacities. Critical findings reported to treating nurse Jo at 1320 on 03/26/2020.
[2020-03-26] MEDS: Norepinephrine 4mg/NS Premix 250 ML IV SCH ×2 (14:40→20:54)
--- NOTE | 2020-03-26 15:52 | Diagnostic Imaging Report ---
Indication: Reason For Exam: MALPOSITN Technique: Single AP view of the chest. Comparison: Same day chest radiograph. Findings: The cardiomediastinal silhouette is unchanged in appearance. There are low lung volumes. Unchanged left lung. Interval increase in right perihilar airspace consolidation. No increasing pleural effusion or pneumothorax. Interval retraction of endotracheal tube, now in appropriate position. Enteric tube is unchanged. IMPRESSION: 1. Increasing right perihilar airspace consolidation. 2. Interval retraction of endotracheal tube, now in appropriate position.
--- NOTE | 2020-03-26 15:59 | General Progress Note ---
Subjective Allergies: Coded Allergies: No Known Allergies (Unverified , 03/20/20) Subjective coded intubated Objective Last 24 Hour Vital Signs Date Time Temp Pulse Resp B/P (MAP) Pulse Ox O2 Delivery O2 Flow Rate FiO2 03/26/20 15:10 100 34 90 03/26/20 15:00 107 34 84/60 (68) 98 03/26/20 14:40 72/51 03/26/20 14:00 99 26 74/52 (59) 98 03/26/20 13:40 102 28 90 03/26/20 13:06 73/48 03/26/20 13:04 111 33 73/48 (56) 98 03/26/20 13:00 96.6 110 33 67/54 (58) 98 03/26/20 12:03 104 03/26/20 12:01 103 34 81/50 (60) 98 03/26/20 12:00 Mechanical Ventilator 03/26/20 11:20 104 36 90 03/26/20 11:00 109 31 90/69 (76) 95 03/26/20 10:00 104 31 79/62 (68) 98 03/26/20 09:50 90 03/26/20 09:00 99 28 81/58 (66) 100 03/26/20 08:50 102 31 90 03/26/20 08:00 Mechanical Ventilator 03/26/20 08:00 94 24 95/69 (78) 100 03/26/20 08:00 94 03/26/20 08:00 100 03/26/20 07:10 90 20 90 Mechanical Ventilator 100 03/26/20 07:10 90 Mechanical Ventilator 100 03/26/20 06:31 90 20 100 03/26/20 04:00 97 03/26/20 04:00 97.5 82 18 105/62 (76) 97 03/26/20 04:00 Nasal Cannula 5.0 03/26/20 00:00 97.1 90 18 90/57 (68) 96 03/26/20 00:00 89 03/26/20 00:00 Nasal Cannula 5.0 03/25/20 20:00 96 03/25/20 20:00 96.1 96 18 84/58 (67) 95 03/25/20 20:00 Nasal Cannula 5.0 03/25/20 19:06 99 Nasal Cannula 5.0 40 03/25/20 18:22 85/60 03/25/20 16:00 94.2 81 18 85/60 (68) 95 03/25/20 16:00 85 03/25/20 16:00 Nasal Cannula 5.0 Intake and Output 03/25/20 03/26/20 19:00 07:00 Intake Total 1450 ml 425 ml Output Total 150 ml 450 ml Balance 1300 ml -25 ml Intake Oral 450 ml 300 ml IV Total 1000 ml 125 ml Output Urine Total 150 ml 450 ml # Bowel Movements 2 2 Laboratory Tests 03/26/20 03:10: White Blood Count 40.1*H, Red Blood Count 3.06L, Hemoglobin 8.9L, Hematocrit 29.7L, Mean Corpuscular Volume 97, Mean Corpuscular Hemoglobin 29.0, Mean Corpuscular Hemoglobin Concent 29.9L, Red Cell Distribution Width 18.2H, Platelet Count 87L, Mean Platelet Volume 14.8H, Neutrophils (%) (Auto) , L ymphocytes (%) (Auto) , Monocytes (%) (Auto) , Eosinophils (%) (Auto) , Basophils (%) (Auto) , Differential Total Cells Counted 100, Neutrophils % (Manual) 79H, Lymphocytes % (Manual) 7L, Monocytes % (Manual) 2, Eosinophils % (Manual) 0, Basophils % (Manual) 0, Band Neutrophils 12H, Platelet Estimate DecreasedL, Platelet Morphology See comment, Giant Platelets Rare, Hypochromasia 2+, Anisocytosis 2+, Macrocytosis 1+, Prothrombin Time 21.1H, Prothromb Time International Ratio 2.0H, Sodium Level 143, Potassium Level 3.8, Chloride Level 109H, Carbon Dioxide Level 14L, Anion Gap 20H, Blood Urea Nitrogen 35H, Creatinine 2.2H, Estimat Glomerular Filtration Rate 23.5, Glucose Level 99, Lactic Acid Level 7.00H, Calcium Level 8.9, Magnesium Level 3.9H, Total Bilirubin 9.1H, Direct Bilirubin 7.2H, Aspartate Amino Transf (AST/SGOT) 70H, Alanine Aminotransferase (ALT/SGPT) 13, Alkaline Phosphatase 262H, Ammonia 79H, Total Protein 6.0L, Albumin 3.0L, Globulin 3.0, Albumin/Globulin Ratio 1.0 03/26/20 08:21: Arterial Blood pH 7.182*L, Arterial Blood Partial Pressure CO2 31.6L, Arterial Blood Partial Pressure O2 152.2H, Arterial Blood HCO3 11.6*L, Arterial Blood Oxygen Saturation 98.1, Arterial Blood Base Excess -15.5*L, Shaun Test Positive Height (Feet): 4 Height (Inches): 11.00 Weight (Pounds): 105 EENT: scleral icterus Respiratory/Chest: rhonchi - bilaterally Abdomen: distended Edema: no edema noted Generalized Assessment/Plan Problem List: (1) Acute renal failure ICD Codes: N17.9 - Acute kidney failure, unspecified SNOMED: 76956324 Qualifiers: Qualified Codes: N17.9 - Acute kidney failure, unspecified (2) Cirrhosis ICD Codes: K74.60 - Unspecified cirrhosis of liver SNOMED: 64996918 Qualifiers: Qualified Codes: K70.31 - Alcoholic cirrhosis of liver with ascites (3) Anemia ICD Codes: D64.9 - Anemia, unspecified SNOMED: 472026032 Qualifiers: Qualified Codes: D64.9 - Anemia, unspecified (4) Sepsis ICD Codes: A41.9 - Sepsis, unspecified organism SNOMED: 82774608 (5) Hypokalemia ICD Codes: E87.6 - Hypokalemia SNOMED: 34787494 (6) Cardiopulmonary arrest ICD Codes: I46.9 - Cardiac arrest, cause unspecified SNOMED: 552443225 Assessment/Plan: abxs keep on levophed follow labs Pulm and cardiology consult Discussed with RN follow labs full code per family total time spent 40 min Erick Diaz MD Mar 26, 2020 15:59
--- NOTE | 2020-03-26 16:31 | CDS Physician Query ---
Clarification is required for compliance, coding accuracy, and to reflect severity of illness for this patient Dear Dr. Erick Diaz Date: 03/26/20 [place]/CDS Name: [place] UTI with E. 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, COPD, Anemia, Thrombocytopenia, Hypokalemia, Likely alcoholic hepatitis, Cachexia (Infectious Disease on 03/25/20) Acute renal failure, Cirrhosis, Sepsis, Hypokalemia (IM Progress notes on 03/25/20) BMI is 16.6 Labs: 2.4, 2.9, 2.7 Please select the most appropriate option: Protein/Calorie Malnutrition [ x ] Severe [ ] Moderate [ ] Mild [ ] Hypoalbuminemia [ x ] Cachexia [ ] Underweight [ ] Intestinal malabsorption [ ] Other [ ] Unable to determine [ ] Not Applicable Present on Admission: [ x] Yes [ ] No [ ] Clinically Undetermined Physician signature Date Please also document in your Progress Notes and/or Discharge Summary and indicate if the condition was present on admission. MTDD
--- NOTE | 2020-03-26 19:54 | Cardiology Progress Note ---
Assessment/Plan Assessment/Plan [id number] respiratory failure leadign to sandra cardiac arrest sepsis / hypotension cirrhosis coagulopathy arf acidosis unsual air collection on ct next to vaginal wall etoh abuse history uti ekg echo trop had 19 of cpr likely to lead ot elevated trop pressoer vent abx watch for worsening of coag and thrombocytopenia Objective Last 24 Hour Vital Signs Date Time Temp Pulse Resp B/P (MAP) Pulse Ox O2 Delivery O2 Flow Rate FiO2 03/26/20 19:27 121 36 80 03/26/20 19:00 122 38 97/66 (76) 100 03/26/20 18:30 123 39 102/68 (79) 100 03/26/20 18:00 115 35 97/67 (77) 97 03/26/20 17:58 93/64 03/26/20 17:45 112 36 93/64 (74) 100 03/26/20 17:30 108 35 86/61 (69) 100 03/26/20 17:25 109 35 90 03/26/20 17:15 108 36 90/64 (73) 100 03/26/20 17:00 97.7 110 37 88/64 (72) 98 03/26/20 16:00 112 33 94/64 (74) 98 03/26/20 16:00 90 03/26/20 16:00 Mechanical Ventilator 03/26/20 16:00 111 03/26/20 15:10 100 34 90 03/26/20 15:00 107 34 84/60 (68) 98 03/26/20 14:40 72/51 03/26/20 14:00 99 26 74/52 (59) 98 03/26/20 13:40 102 28 90 03/26/20 13:06 73/48 03/26/20 13:04 111 33 73/48 (56) 98 03/26/20 13:00 96.6 110 33 67/54 (58) 98 03/26/20 12:03 104 03/26/20 12:01 103 34 81/50 (60) 98 03/26/20 12:00 90 03/26/20 12:00 Mechanical Ventilator 03/26/20 11:20 104 36 90 03/26/20 11:00 109 31 90/69 (76) 95 03/26/20 10:00 104 31 79/62 (68) 98 03/26/20 09:50 90 03/26/20 09:00 99 28 81/58 (66) 100 03/26/20 08:50 102 31 90 03/26/20 08:00 Mechanical Ventilator 03/26/20 08:00 94 24 95/69 (78) 100 03/26/20 08:00 94 03/26/20 08:00 100 03/26/20 07:10 90 20 90 Mechanical Ventilator 100 03/26/20 07:10 90 Mechanical Ventilator 100 03/26/20 06:31 90 20 100 03/26/20 04:00 97 03/26/20 04:00 97.5 82 18 105/62 (76) 97 03/26/20 04:00 Nasal Cannula 5.0 03/26/20 00:00 97.1 90 18 90/57 (68) 96 03/26/20 00:00 89 03/26/20 00:00 Nasal Cannula 5.0 03/25/20 20:00 96 03/25/20 20:00 96.1 96 18 84/58 (67) 95 03/25/20 20:00 Nasal Cannula 5.0 Intake and Output 03/25/20 03/26/20 19:00 07:00 Intake Total 1450 ml 425 ml Output Total 150 ml 450 ml Balance 1300 ml -25 ml Intake Oral 450 ml 300 ml IV Total 1000 ml 125 ml Output Urine Total 150 ml 450 ml # Bowel Movements 2 2 Laboratory Tests Test 03/26/20 03:10 03/26/20 08:21 03/26/20 19:25 White Blood Count 40.1 K/UL (4.8-10.8) *H Red Blood Count 3.06 M/UL (4.20-5.40) L Hemoglobin 8.9 G/DL (12.0-16.0) L Hematocrit 29.7 % (37.0-47.0) L Mean Corpuscular Volume 97 FL (80-99) Mean Corpuscular Hemoglobin 29.0 PG (27.0-31.0) Mean Corpuscular Hemoglobin Concent 29.9 G/DL (32.0-36.0) L Red Cell Distribution Width 18.2 % (11.6-14.8) H Platelet Count 87 K/UL (150-450) L Mean Platelet Volume 14.8 FL (6.5-10.1) H Neutrophils (%) (Auto) % (45.0-75.0) Lymphocytes (%) (Auto) % (20.0-45.0) Monocytes (%) (Auto) % (1.0-10.0) Eosinophils (%) (Auto) % (0.0-3.0) Basophils (%) (Auto) % (0.0-2.0) Differential Total Cells Counted 100 Neutrophils % (Manual) 79 % (45-75) H Lymphocytes % (Manual) 7 % (20-45) L Monocytes % (Manual) 2 % (1-10) Eosinophils % (Manual) 0 % (0-3) Basophils % (Manual) 0 % (0-2) Band Neutrophils 12 % (0-8) H Platelet Estimate Decreased L Platelet Morphology See comment Giant Platelets Rare Hypochromasia 2+ Anisocytosis 2+ Macrocytosis 1+ Prothrombin Time 21.1 SEC (9.30-11.50) H Prothromb Time International Ratio 2.0 (0.9-1.1) H Sodium Level 143 MMOL/L (136-145) Potassium Level 3.8 MMOL/L (3.5-5.1) Chloride Level 109 MMOL/L (98-107) H Carbon Dioxide Level 14 MMOL/L (21-32) L Anion Gap 20 mmol/L (5-15) H Blood Urea Nitrogen 35 mg/dL (7-18) H Creatinine 2.2 MG/DL (0.55-1.30) H Estimat Glomerular Filtration Rate 23.5 mL/min (>60) Glucose Level 99 MG/DL (74-106) Lactic Acid Level 7.00 mmol/L (0.4-2.0) H Pending Calcium Level 8.9 MG/DL (8.5-10.1) Magnesium Level 3.9 MG/DL (1.8-2.4) H Total Bilirubin 9.1 MG/DL (0.2-1.0) H Direct Bilirubin 7.2 MG/DL (0.0-0.3) H Aspartate Amino Transf (AST/SGOT) 70 U/L (15-37) H Alanine Aminotransferase (ALT/SGPT) 13 U/L (12-78) Alkaline Phosphatase 262 U/L (46-116) H Ammonia 79 umol/L (11-32) H Total Protein 6.0 G/DL (6.4-8.2) L Albumin 3.0 G/DL (3.4-5.0) L Globulin 3.0 g/dL Albumin/Globulin Ratio 1.0 (1.0-2.7) Arterial Blood pH 7.182 (7.350-7.450) Arterial Blood Partial Pressure CO2 31.6 mmHg (35.0-45.0) L Arterial Blood Partial Pressure O2 152.2 mmHg (75.0-100.0) H Arterial Blood HCO3 11.6 mmol/L (22.0-26.0) *L Arterial Blood Oxygen Saturation 98.1 % (95-100) Arterial Blood Base Excess -15.5 (-2-2) *L Shaun Test Positive Curtis Worley MD Mar 26, 2020 19:54
[2020-03-26 20:09] LABS: HEMATOCRIT 26.1 % (37.0-47.0); HEMOGLOBIN 7.7 G/DL (12.0-16.0); MEAN CORPUSCULAR VOLUME 99 FL (80-99); PLATELET COUNT 71 K/UL (150-450); RED BLOOD COUNT 2.65 M/UL (4.20-5.40); RED CELL DISTRIBUTION WIDTH 18.4 % (11.6-14.8)
[2020-03-26 20:10] LABS: WHITE BLOOD COUNT 44.6 K/UL (4.8-10.8)
[2020-03-26 20:40] LABS: ALANINE AMINOTRANSFERASE 71 U/L (12-78); ALBUMIN 2.4 G/DL (3.4-5.0); ALBUMIN/GLOBULIN RATIO 0.9 (1.0-2.7); ALKALINE PHOSPHATASE 256 U/L (46-116); ANION GAP 25 mmol/L (5-15); ASPARTATE AMINO TRANSFERASE 518 U/L (15-37); BILIRUBIN,TOTAL 10.1 MG/DL (0.2-1.0); BLOOD UREA NITROGEN 36 mg/dL (7-18); CALCIUM 8.3 MG/DL (8.5-10.1); CARBON DIOXIDE 10 MMOL/L (21-32); CHLORIDE 114 MMOL/L (98-107); CREATINE KINASE 691 U/L (26-308); CREATININE 2.4 MG/DL (0.55-1.30); POTASSIUM 3.2 MMOL/L (3.5-5.1); SODIUM 149 MMOL/L (136-145)
[2020-03-26 20:42] LABS: INR 2.2 (0.9-1.1)
[2020-03-26 20:52] LABS: BILIRUBIN,DIRECT 8.5 MG/DL (0.0-0.3)
--- NOTE | 2020-03-26 21:47 | General Progress Note ---
Subjective Allergies: Coded Allergies: No Known Allergies (Unverified , 03/20/20) Subjective above noted now in ICU s/p arrest this am Objective Last 24 Hour Vital Signs Date Time Temp Pulse Resp B/P (MAP) Pulse Ox O2 Delivery O2 Flow Rate FiO2 03/26/20 20:54 87/55 03/26/20 19:27 121 36 80 03/26/20 19:00 122 38 97/66 (76) 100 03/26/20 18:30 123 39 102/68 (79) 100 03/26/20 18:00 115 35 97/67 (77) 97 03/26/20 17:58 93/64 03/26/20 17:45 112 36 93/64 (74) 100 03/26/20 17:30 108 35 86/61 (69) 100 03/26/20 17:25 109 35 90 03/26/20 17:15 108 36 90/64 (73) 100 03/26/20 17:00 97.7 110 37 88/64 (72) 98 03/26/20 16:00 112 33 94/64 (74) 98 03/26/20 16:00 90 03/26/20 16:00 Mechanical Ventilator 03/26/20 16:00 111 03/26/20 15:10 100 34 90 03/26/20 15:00 107 34 84/60 (68) 98 03/26/20 14:40 72/51 03/26/20 14:00 99 26 74/52 (59) 98 03/26/20 13:40 102 28 90 03/26/20 13:06 73/48 03/26/20 13:04 111 33 73/48 (56) 98 03/26/20 13:00 96.6 110 33 67/54 (58) 98 03/26/20 12:03 104 03/26/20 12:01 103 34 81/50 (60) 98 03/26/20 12:00 90 03/26/20 12:00 Mechanical Ventilator 03/26/20 11:20 104 36 90 03/26/20 11:00 109 31 90/69 (76) 95 03/26/20 10:00 104 31 79/62 (68) 98 03/26/20 09:50 90 03/26/20 09:00 99 28 81/58 (66) 100 03/26/20 08:50 102 31 90 03/26/20 08:00 Mechanical Ventilator 03/26/20 08:00 94 24 95/69 (78) 100 03/26/20 08:00 94 03/26/20 08:00 100 03/26/20 07:10 90 20 90 Mechanical Ventilator 100 03/26/20 07:10 90 Mechanical Ventilator 100 03/26/20 06:31 90 20 100 03/26/20 04:00 97 03/26/20 04:00 97.5 82 18 105/62 (76) 97 03/26/20 04:00 Nasal Cannula 5.0 03/26/20 00:00 97.1 90 18 90/57 (68) 96 03/26/20 00:00 89 03/26/20 00:00 Nasal Cannula 5.0 Intake and Output 03/25/20 03/26/20 19:00 07:00 Intake Total 1450 ml 425 ml Output Total 150 ml 450 ml Balance 1300 ml -25 ml Intake Oral 450 ml 300 ml IV Total 1000 ml 125 ml Output Urine Total 150 ml 450 ml # Bowel Movements 2 2 Laboratory Tests 03/26/20 03:10: White Blood Count 40.1*H, Red Blood Count 3.06L, Hemoglobin 8.9L, Hematocrit 29.7L, Mean Corpuscular Volume 97, Mean Corpuscular Hemoglobin 29.0, Mean Corpuscular Hemoglobin Concent 29.9L, Red Cell Distribution Width 18.2H, Platelet Count 87L, Mean Platelet Volume 14.8H, Neutrophils (%) (Auto) , Lymphocytes (%) (Auto) , Monocytes (%) (Auto) , Eosinophils (%) (Auto) , Basophils (%) (Auto) , Differential Total Cells Counted 100, Neutrophils % (Manual) 79H, Lymphocytes % (Manual) 7L, Monocytes % (Manual) 2, Eosinophils % (Manual) 0, Basophils % (Manual) 0, Band Neutrophils 12H, Platelet Estimate DecreasedL, Platelet Morphology See comment, Giant Platelets Rare, Hypochromasia 2+, Anisocytosis 2+, Macrocytosis 1+, Prothrombin Time 21.1H, Prothromb Time International Ratio 2.0H, Sodium Level 143, Potassium Level 3.8, Chloride Level 109H, Carbon Dioxide Level 14L, Anion Gap 20H, Blood Urea Nitrogen 35H, Creatinine 2.2H, Estimat Glomerular Filtration Rate 23.5, Glucose Level 99, Lactic Acid Level 7.00H, Calcium Level 8.9, Magnesium Level 3.9H, Total Bilirubin 9.1H, Direct Bilirubin 7.2H, Aspartate Amino Transf (AST/SGOT) 70H, Alanine Aminotransferase (ALT/SGPT) 13, Alkaline Phosphatase 262H, Ammonia 79H, Total Protein 6.0L, Albumin 3.0L, Globulin 3.0, Albumin/Globulin Ratio 1.0 03/26/20 08:21: Arterial Blood pH 7.182*L, Arterial Blood Partial Pressure CO2 31.6L, Arterial Blood Partial Pressure O2 152.2H, Arterial Blood HCO3 11.6*L, Arterial Blood Oxygen Saturation 98.1, Arterial Blood Base Excess -15.5*L, Shaun Test Positive 03/26/20 19:25: Lactic Acid Level 9.90H 03/26/20 19:55: White Blood Count 44.6*H, Red Blood Count 2.65L, Hemoglobin 7.7L, Hematocrit 26 .1L, Mean Corpuscular Volume 99, Mean Corpuscular Hemoglobin 29.0, Mean Corpuscular Hemoglobin Concent 29.3L, Red Cell Distribution Width 18.4H, Platelet Count 71L, Mean Platelet Volume 13.7H, Neutrophils (%) (Auto) , Lymphocytes (%) (Auto) , Monocytes (%) (Auto) , Eosinophils (%) (Auto) , Basophils (%) (Auto) , Differential Total Cells Counted 100, Neutrophils % (Manual) 94H, Lymphocytes % (Manual) 2L, Monocytes % (Manual) 3, Eosinophils % (Manual) 0, Basophils % (Manual) 0, Band Neutrophils 1, Platelet Estimate DecreasedL, Platelet Morphology Normal, Hypochromasia 2+, Anisocytosis 1+, Prothrombin Time 22.8H, Prothromb Time International Ratio 2.2H, Sodium Level 149H, Potassium Level 3.2L, Chloride Level 114H, Carbon Dioxide Level 10L, Anion Gap 25H, Blood Urea Nitrogen 36H, Creatinine 2.4H, Estimat Glomerular Filtration Rate 21.3, Glucose Level 14*L, Calcium Level 8.3L, Total Bilirubin 10.1H, Direct Bilirubin 8.5H, Aspartate Amino Transf (AST/SGOT) 518H, Alanine Aminotransferase (ALT/SGPT) 71, Alkaline Phosphatase 256H, Total Protein 5.0L, Albumin 2.4L, Globulin 2.6, Albumin/Globulin Ratio 0.9L, Nucleated Red Blood Cells 2, Polychromasia 1+, Activated Partial Thromboplast Time 51H, Total Creatine Kinase 691H, Troponin I 0.608H, Pro-B-Type Natriuretic Peptide 78938H Height (Feet): 4 Height (Inches): 11.00 Weight (Pounds): 105 Objective cathexic woman with distended abdomen NCAT, (+) ETT supple coarse BS RR abd distended, not tense no edema Assessment/Plan Assessment/Plan: Assessment - EtOH cirrhosis (negative hepatitis serologies) - EtOH Hepatitis - not candidate for steroids due to elevated WBC - Ascites - PNA and hypoxia - dyspnea and respiratory failure - azotemia, pre-renal vs HRS - jaundice - coagulopathy - guarded Recommendations - Vent and ICU care - Trental - abx - will begin TF if ok with pulmonary - octreotide / midodrine Nadine Childers MD Mar 26, 2020 21:47
[2020-03-26] MEDS: Sodium Bicarbonate 150 ML in D5W 1000ml 1,000 ML IV SCH (22:26)
--- NOTE | 2020-03-26 22:30 | Consultation ---
DATE OF CONSULTATION: 03/26/2020 CARDIOLOGY CONSULTATION CONSULTING PHYSICIAN: Curtis Worley M.D. REFERRING PHYSICIAN: Erick Diaz M.D. REASON FOR REFERRAL: Status post cardiac arrest. HISTORY OF PRESENT ILLNESS: This is a 49-year-old female who on 03/20/2016 with history of vomiting and diarrhea for 1 week with abdominal pain, found to have acute renal failure with elevated bilirubin as well as urinary tract infection and hypokalemia and she was admitted to the hospital over the past few days. She reportedly had an episode of acute cardiopulmonary arrest at approximately 6 o'clock this morning. As I understand it, according to the nursing notes early in the morning, the patient was repositioned in bed with a saturation of 98% on nasal cannula and she has been noted to have elevated WBC and vital signs were stable and was subsequently referred to a Code Blue. indicate the patient had desaturated, became bradycardic and progressed to asystole. She was in asystole. She had advanced cardiac life support and was subsequently intubated, and received epinephrine as well as bicarb and eventually went into pulseless electrical activity and subsequently recovery of spontaneous pulsation was noted. The patient was transferred to the intensive care unit and has been on the ventilator since. Her saturations have been okay. She has actually been tapered down from 100% to 60%, but she was hypotensive and required pressors. PAST MEDICAL HISTORY: Unfortunately, not much information is available except what was noted above. She denied any history of liver disease or diabetes or high blood pressure. SOCIAL HISTORY: Apparently drink vodka every day for many years, marijuana occasionally, and she denies history of intravenous drug use, and she smokes less than a pack a day. ALLERGIES: She has had no known drug allergies. PHYSICAL EXAMINATION: GENERAL: Shows a middle-aged female, who looks older than her stated age. NECK: Supple. She is on a mechanical ventilator, but she seems to be minimally responsive to her name. LUNGS: Rhonchi noted bilaterally CARDIAC: Regular rhythm, tachycardic. No heaves or thrills. ABDOMEN: Somewhat distended. Hypoactive bowel sounds. EXTREMITIES: There is no edema. She has demarcations and ecchymosis lesions on the left leg, the knee, and below that appear to be in usual distribution over the skin. LABORATORY AND DIAGNOSTIC DATA: White count of 40,000, hemoglobin 8.9, and platelet count of 87,000, 12% banded neutrophils. Sodium 143, potassium 3.8, chloride 109, bicarb is 14, BUN of 35, creatinine 2.2, and glucose of 99. Lactic acid of 7. Magnesium of 3.9. Her bilirubin of 9.1, AST of 70, ALT of 15, alkaline phosphatase is 262, ammonia of 79, and total protein of 6, and albumin of 3.0. Coags, INR 2 and PTT of 2.0. Urinalysis showed 20 to 30 rbc's and too numerous to count wbc's. She had a paracentesis performed, and her hepatitis A, B, and C serologies negative. HIV was negative. Blood cultures are negative. She had a COVID-SARS test that was initially performed and that is negative. Urine culture is growing E. coli. Chest x-rays today showed increased right perihilar airspace consolidation, and abdominal x-rays showed lung bases diffuse interstitial opacities. Abdominal pelvic CT initially performed showed unusual gas and fluid collection, calcification within or adjacent to the vaginal wall, significance etiology uncertain, large volume of last ascites, evidence of hepatic cirrhosis, chronic calcifying pancreatitis, bullous COPD. Electrocardiogram that was performed a few days ago showed basically what appears to be sinus rhythm with some diffuse nonspecific ST and T-wave abnormalities. Repeat EKG performed just now shows sinus low-voltage QRS complexes. There are some mild ST-segment elevated in V1 and V2, those were present on prior occasions, maybe some biphasic T-waves in V3 and V4 now. ASSESSMENT AND PLAN: 1. Cardiopulmonary arrest, status post 19 minutes of advanced and basic cardiac life support. 2. Hypotension. 3. Leukocytosis, leukemoid reaction. 4. Coagulopathy. 5. Thrombocytopenia. 6. Cirrhosis. 7. Perihilar infiltrate. 8. Possible chronic pancreatitis with calcification on CT. 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 10. Gas and fluid collection adjacent to the vaginal wall. 11. Lactic acidosis. Dr. Diaz, this patient was seen in cardiac consultation and appears that the patient became hypoxemic and subsequently went to bradycardiac arrest. Likely the cause of arrest is respiratory induced. At the present time, she is saturating quite well. From a cardiac point of view, series of cardiac enzymes will be ordered. An echocardiogram will be ordered. EKG will be ordered. I suspect that she may have elevated cardiac enzymes based on the fact that she had 19 minutes of cardiopulmonary resuscitation, the degree of which will be determined based on. She has significant elevated lactic acid level, likely post arrest and she had the coagulopathy before. I suspect that may have worsened. In either case, supportive care, she is on pressors at the present time, she is on a ventilator, she is somewhat or minimally responsive. Continue supportive care. She deemed to be Full Code at this time as I understand it. Cardiac enzymes will be repeated. Curtis Worley M.D. DR: AYLIN JOB#: [id number] CC:
[2020-03-27] VITALS (48 sets, daily range): BP systolic 81–106; BP diastolic 47–92
[2020-03-27] MEDS: Norepinephrine 4mg/NS Premix 250 ML IV SCH ×6 (00:25→14:28)
[2020-03-27 04:52] LABS: HEMATOCRIT 23.3 % (37.0-47.0); MEAN CORPUSCULAR VOLUME 98 FL (80-99); PLATELET COUNT 66 K/UL (150-450); RED BLOOD COUNT 2.38 M/UL (4.20-5.40); RED CELL DISTRIBUTION WIDTH 18.8 % (11.6-14.8)
[2020-03-27 05:05] LABS: WHITE BLOOD COUNT 44.5 K/UL (4.8-10.8)
[2020-03-27 05:44] LABS: ALBUMIN 2.2 G/DL (3.4-5.0); ALBUMIN/GLOBULIN RATIO 0.8 (1.0-2.7); BILIRUBIN,TOTAL 10.2 MG/DL (0.2-1.0); CALCIUM 7.9 MG/DL (8.5-10.1); CREATININE 2.4 MG/DL (0.55-1.30); POTASSIUM 3.1 MMOL/L (3.5-5.1)
[2020-03-27 05:52] LABS: BILIRUBIN,DIRECT 8.4 MG/DL (0.0-0.3)
[2020-03-27] MEDS: Lactulose 20gm/30ml UDC ORAL SCH ×3 (06:00→21:52)
[2020-03-27] MEDS: Spironolactone 50mg tab ORAL SCH (08:22)
[2020-03-27] MEDS: Piperacillin/Tazobactam 3.375 GM in NS 110 ML IVPB SCH ×2 (08:23→21:08)
[2020-03-27] MEDS: Sodium Bicarbonate 150 ML in D5W 1000ml 1,000 ML IV SCH ×3 (09:30→23:53)
--- NOTE | 2020-03-27 10:01 | Pulmonology Progress Note ---
Subjective ROS Limited/Unobtainable: Yes Interval Events: Remains intubated; abdomen distended Constitutional: Reports: no symptoms, other - hypothermic HEENT: Repors: no symptoms Respiratory: Reports: no symptoms Cardiovascular: Reports: no symptoms Gastrointestinal/Abdominal: Reports: no symptoms Allergies: Coded Allergies: No Known Allergies (Unverified , 03/20/20) Objective Last 24 Hour Vital Signs Date Time Temp Pulse Resp B/P (MAP) Pulse Ox O2 Delivery O2 Flow Rate FiO2 03/27/20 09:30 103 27 93/58 (70) 100 03/27/20 09:00 92 24 80 03/27/20 09:00 94 24 87/52 (64) 100 03/27/20 08:30 99 25 93/56 (68) 100 03/27/20 08:23 92/59 03/27/20 08:00 Mechanical Ventilator 03/27/20 08:00 99.5 103 31 90/59 (69) 100 03/27/20 08:00 80 03/27/20 07:43 105 30 80 03/27/20 07:30 98 25 92/51 (65) 100 03/27/20 07:26 87/49 03/27/20 07:00 99 26 93/55 (68) 100 03/27/20 06:30 96 25 91/52 (65) 100 03/27/20 06:00 104 29 93/56 (68) 100 03/27/20 05:30 100 27 88/53 (65) 100 03/27/20 05:04 98 28 80 03/27/20 05:01 84/49 03/27/20 05:00 100 29 84/49 (61) 100 03/27/20 04:30 106 30 88/54 (65) 100 03/27/20 04:00 80 03/27/20 04:00 120 03/27/20 04:00 98.8 118 29 96/63 (74) 100 03/27/20 04:00 Mechanical Ventilator 03/27/20 03:45 115 32 90/56 (67) 100 03/27/20 03:30 117 30 92/58 (69) 100 03/27/20 03:07 123 33 80 03/27/20 03:00 116 30 100/59 (73) 100 03/27/20 02:30 118 32 90/59 (69) 100 03/27/20 02:00 118 32 95/57 (70) 100 03/27/20 01:30 120 29 91/61 (71) 100 03/27/20 01:00 120 34 90/57 (68) 100 03/27/20 00:55 120 35 80 03/27/20 00:30 119 35 92/57 (69) 100 03/27/20 00:25 97/62 03/27/20 00:00 Mechanical Ventilator 03/27/20 00:00 98.1 119 34 94/58 (70) 100 03/26/20 23:30 110 25 84/58 (67) 100 03/26/20 23:00 119 36 85/54 (64) 100 03/26/20 22:58 118 34 80 03/26/20 22:30 122 37 85/55 (65) 100 03/26/20 22:00 123 38 96/64 (75) 100 03/26/20 21:38 125 37 80 03/26/20 21:30 123 38 96/64 (75) 100 03/26/20 21:00 116 37 94/60 (71) 100 03/26/20 20:54 87/55 03/26/20 20:30 116 36 86/52 (63) 97 03/26/20 20:00 80 03/26/20 20:00 98.2 117 37 90/57 (68) 99 03/26/20 20:00 Mechanical Ventilator 03/26/20 20:00 122 03/26/20 19:30 120 38 92/62 (72) 100 03/26/20 19:27 121 36 80 03/26/20 19:00 122 38 97/66 (76) 100 03/26/20 18:30 123 39 102/68 (79) 100 03/26/20 18:00 115 35 97/67 (77) 97 03/26/20 17:58 93/64 03/26/20 17:45 112 36 93/64 (74) 100 03/26/20 17:30 108 35 86/61 (69) 100 03/26/20 17:25 109 35 90 03/26/20 17:15 108 36 90/64 (73) 100 03/26/20 17:00 97.7 110 37 88/64 (72) 98 03/26/20 16:00 112 33 94/64 (74) 98 03/26/20 16:00 90 03/26/20 16:00 Mechanical Ventilator 03/26/20 16:00 111 03/26/20 15:10 100 34 90 03/26/20 15:00 107 34 84/60 (68) 98 03/26/20 14:40 72/51 03/26/20 14:00 99 26 74/52 (59) 98 03/26/20 13:40 102 28 90 03/26/20 13:06 73/48 03/26/20 13:04 111 33 73/48 (56) 98 03/26/20 13:00 96.6 110 33 67/54 (58) 98 03/26/20 12:03 104 03/26/20 12:01 103 34 81/50 (60) 98 03/26/20 12:00 90 03/26/20 12:00 Mechanical Ventilator 03/26/20 11:20 104 36 90 03/26/20 11:00 109 31 90/69 (76) 95 03/26/20 10:00 104 31 79/62 (68) 98 Intake and Output 03/26/20 03/27/20 19:00 07:00 Intake Total 1473.540 ml 2120.0 ml Output Total 35 ml 105 ml Balance 1438.540 ml 2015.0 ml IV Total 1253.540 ml 2120.0 ml Other 220 ml Output Urine Total 35 ml 105 ml General Appearance: no acute distress HEENT: normocephalic Respiratory: decreased breath sounds Cardiovascular: normal peripheral pulses, normal rate Abdomen: distended Laboratory Tests 03/26/20 19:25: Lactic Acid Level 9.90H 03/26/20 19:55: White Blood Count 44.6*H, Red Blood Count 2.65L, Hemoglobin 7.7L, Hematocrit 26.1L, Mean Corpuscular Volume 99, Mean Corpuscular Hemoglobin 29.0, Mean Corpus cular Hemoglobin Concent 29.3L, Red Cell Distribution Width 18.4H, Platelet Count 71L, Mean Platelet Volume 13.7H, Neutrophils (%) (Auto) , Lymphocytes (%) (Auto) , Monocytes (%) (Auto) , Eosinophils (%) (Auto) , Basophils (%) (Auto) , Differential Total Cells Counted 100, Neutrophils % (Manual) 94H, Lymphocytes % (Manual) 2L, Monocytes % (Manual) 3, Eosinophils % (Manual) 0, Basophils % (Manual) 0, Band Neutrophils 1, Nucleated Red Blood Cells 2, Platelet Estimate DecreasedL, Platelet Morphology Normal, Polychromasia 1+, Hypochromasia 2+, Anisocytosis 1+, Prothrombin Time 22.8H, Prothromb Time International Ratio 2.2H , Activated Partial Thromboplast Time 51H, Sodium Level 149H, Potassium Level 3.2L, Chloride Level 114H, Carbon Dioxide Level 10L, Anion Gap 25H, Blood Urea Nitrogen 36H, Creatinine 2.4H, Estimat Glomerular Filtration Rate 21.3, Glucose Level 14*L, Calcium Level 8.3L, Total Bilirubin 10.1H, Direct Bilirubin 8.5H, Aspartate Amino Transf (AST/SGOT) 518H, Alanine Aminotransferase (ALT/SGPT) 71, Alkaline Phosphatase 256H, Total Creatine Kinase 691H, Troponin I 0.608H, Pro-B-Type Natriuretic Peptide [id number], Total Protein 5.0L, Albumin 2.4L, Globulin 2.6, Albumin/Globulin Ratio 0.9L 03/26/20 21:22: Arterial Blood pH 7.241*L, Arterial Blood Partial Pressure CO2 20.1*L, Arterial Blood Partial Pressure O2 94.7, Arterial Blood HCO3 8.4*L, Arterial Blood Oxygen Saturation 94.9L, Arterial Blood Base Excess -17.3*L, Shaun Test Positive 03/26/20 21:23: POC Whole Blood Glucose 81 03/27/20 02:45: POC Whole Blood Glucose 120H 03/27/20 04:15: White Blood Count 44.5*H, Red Blood Count 2.38L, Hemoglobin 7.0L, Hematocrit 23.3L, Mean Corpuscular Volume 98, Mean Corpuscular Hemoglobin 29.3, Mean Corpuscular Hemoglobin Concent 30.0L, Red Cell Distribution Width 18.8H, Platelet Count 66L, Mean Platelet Volume 12.3H, Neutrophils (%) (Auto) , Lymphocytes (%) (Auto) , Monocytes (%) (Auto) , Eosinophils (%) (Auto) , Basophils (%) (Auto) , Differential Total Cells Counted 100, Neutrophils % (Manual) 87H, Lymphocytes % (Manual) 3L, Monocytes % (Manual) 5, Eosinophils % (Manual) 0, Basophils % (Manual) 0, Band Neutrophils 5, Platelet Estimate DecreasedL, Platelet Morphology Normal, Hypochromasia 1+, Anisocytosis 1+, Sodium Level 150H, Potassium Level 3.1L, Chloride Level 114H, Carbon Dioxide Lev el 12L, Anion Gap 24H, Blood Urea Nitrogen 34H, Creatinine 2.4H, Estimat Glomerular Filtration Rate 21.3, Glucose Level 132#H, Calcium Level 7.9L, Total Bilirubin 10.2H, Direct Bilirubin 8.4H, Aspartate Amino Transf (AST/SGOT) 676H, Alanine Aminotransferase (ALT/SGPT) 111H, Alkaline Phosphatase 240H, Total Protein 4.8L, Albumin 2.2L, Globulin 2.6, Albumin/Globulin Ratio 0.8L 03/27/20 08:20: Lactic Acid Level 7.60H Current Medications Medications (Trade) Dose Ordered Sig/Joanna Route PRN Reason Start Time Stop Time Status Last Admin Dose Admin Amylase/Lipase/ Protease (Hallie TAYLOR 36,000 units cap) 1 ea WITH SNACKS PRN ORAL give with snacks 03/21/20 09:30 06/19/20 09:29 03/22/20 12:10 Chlorhexidine Gluconate (Roxanne-Hex 2%) 1 applic DAILY@2000 TOPIC 03/27/20 20:00 06/25/20 19:59 Dextrose (Dextrose 50%) 25 ml Q30M PRN IV Hypoglycemia 03/20/20 20:45 06/18/20 20:44 Dextrose (Dextrose 50%) 50 ml Q30M PRN IV Hypoglycemia 03/20/20 20:45 06/18/20 20:44 03/26/20 20:51 Famotidine (Pepcid) 20 mg BID ORAL 03/20/20 21:35 06/18/20 21:34 03/27/20 08:23 Folic Acid 1 mg/ Magnesium Sulfate 2000 mg/ Multivitamins 10 ml/Sodium Chloride 1,014.2 ml @ 125 mls/ hr Q24H IV 03/21/20 12:00 04/20/20 11:59 03/26/20 12:11 Lactulose (Cephulac) 30 gm EVERY 8 HOURS ORAL 03/25/20 14:00 04/24/20 13:59 03/26/20 13:07 Magnesium Hydroxide (Mom) 30 ml HSPRN PRN ORAL Constipation 03/20/20 20:45 04/19/20 20:44 Midodrine (Pro-Amatine) 5 mg TID ORAL 03/21/20 10:00 06/19/20 09:59 03/27/20 08:23 Morphine Sulfate (Morphine Sulfate) 2 mg Q3H PRN IVP Moderate Pain (Pain Scale 4-6) 03/20/20 21:00 03/27/20 20:59 03/23/20 00:28 Morphine Sulfate (Morphine Sulfate) 4 mg Q3H PRN IVP Severe Pain (Pain Scale 7-10) 03/20/20 21:00 03/27/20 20:59 Norepinephrine Bitartrate 250 ml @ 7.5 mls/hr Q24H IV 03/26/20 14:30 03/29/20 14:26 03/27/20 07:26 Pentoxifylline (TRENtal) 400 mg THREE TIMES A DAY ORAL 03/23/20 22:00 06/21/20 21:59 03/27/20 08:23 Piperacillin Sod/ Tazobactam Sod 3.375 gm/Sodium Chloride 110 ml @ 27.5 mls/hr Q12HR IVPB 03/26/20 14:00 04/02/20 13:59 03/27/20 08:23 Rifaximin (Xifaxan) 550 mg EVERY 12 HOURS ORAL 03/22/20 21:00 04/03/20 23:59 03/27/20 08:23 Sodium Bicarbonate 150 ml/Dextrose 1,150 ml @ 100 mls/hr [id number] IV 03/26/20 23:00 04/25/20 22:59 03/27/20 09:30 Spironolactone (Aldactone) 50 mg DAILY ORAL 03/22/20 09:00 04/21/20 08:59 03/25/20 09:40 Thiamine HCl 100 mg/Dextrose 56 ml @ 112 mls/hr Q24H IVPB 03/21/20 12:00 04/20/20 11:59 03/26/20 12:12 Zolpidem Tartrate (Ambien) 5 mg DAILYPRN PRN ORAL Insomnia 03/20/20 20:45 03/27/20 20:44 03/22/20 23:38 Assessment/Plan Assessment/Plan IMPRESSION: 1. Respiratory failure. 2. Status post Code Blue. 3. Marked leukocytosis 4. Sepsis 5. Hepatic failure. 6. Renal failure. 7. Significant metabolic acidosis. 8. Tense ascites 9. Coagulopathy DISCUSSION: The patient is critically ill with respiratory failure. She also has hepatic failure and renal failure suspicious for hepatorenal syndrome. Prognosis is grave. 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 Agree with broad-spectrum antibiotics. Continue pulmonary hygiene. I will continue vent as is. The patient will benefit from lactulose. Needs paracentesis Adrienne Baer Omar Syed MD Mar 27, 2020 10:01
--- NOTE | 2020-03-27 11:13 | Infectious Diseases Prog Note ---
Assessment/Plan Assessment/Plan IMPRESSION: 1. UTI with E. coli. 2. Leukocytosis worsening 3. 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 4. COPD. 5. Anemia. 6. Thrombocytopenia. 7. Hypokalemia. 8. Likely alcoholic hepatitis. 9. Cachexia. 10. Pneumonia/ atelectasis 11. cardiopulmonary arrest 12. renal failure 13. Lactic acidosis RECOMMENDATION: Continue Zosyn Add IV Vancomycin Will f/u cultures Prognosis seems to be poor. Subjective ROS Limited/Unobtainable: Yes Constitutional: Denies: fever Cardiovascular: Reports: other - on low dose pressor Allergies: Coded Allergies: No Known Allergies (Unverified , 03/20/20) Objective Last 24 Hour Vital Signs Date Time Temp Pulse Resp B/P (MAP) Pulse Ox O2 Delivery O2 Flow Rate FiO2 03/27/20 10:45 125 29 91/59 (70) 98 03/27/20 10:00 97 31 90/55 (67) 99 03/27/20 10:00 90/55 03/27/20 09:30 103 27 93/58 (70) 100 03/27/20 09:00 92 24 80 03/27/20 09:00 94 24 87/52 (64) 100 03/27/20 08:30 99 25 93/56 (68) 100 03/27/20 08:23 92/59 03/27/20 08:00 Mechanical Ventilator 03/27/20 08:00 99.5 103 31 90/59 (69) 100 03/27/20 08:00 80 03/27/20 07:43 105 30 80 03/27/20 07:30 98 25 92/51 (65) 100 03/27/20 07:26 87/49 03/27/20 07:00 99 26 93/55 (68) 100 03/27/20 06:30 96 25 91/52 (65) 100 03/27/20 06:00 104 29 93/56 (68) 100 03/27/20 05:30 100 27 88/53 (65) 100 03/27/20 05:04 98 28 80 03/27/20 05:01 84/49 03/27/20 05:00 100 29 84/49 (61) 100 03/27/20 04:30 106 30 88/54 (65) 100 03/27/20 04:00 80 03/27/20 04:00 120 03/27/20 04:00 98.8 118 29 96/63 (74) 100 03/27/20 04:00 Mechanical Ventilator 03/27/20 03:45 115 32 90/56 (67) 100 03/27/20 03:30 117 30 92/58 (69) 100 03/27/20 03:07 123 33 80 03/27/20 03:00 116 30 100/59 (73) 100 03/27/20 02:30 118 32 90/59 (69) 100 03/27/20 02:00 118 32 95/57 (70) 100 03/27/20 01:30 120 29 91/61 (71) 100 03/27/20 01:00 120 34 90/57 (68) 100 03/27/20 00:55 120 35 80 03/27/20 00:30 119 35 92/57 (69) 100 03/27/20 00:25 97/62 03/27/20 00:00 Mechanical Ventilator 03/27/20 00:00 98.1 119 34 94/58 (70) 100 03/26/20 23:30 110 25 84/58 (67) 100 03/26/20 23:00 119 36 85/54 (64) 100 03/26/20 22:58 118 34 80 03/26/20 22:30 122 37 85/55 (65) 100 03/26/20 22:00 123 38 96/64 (75) 100 03/26/20 21:38 125 37 80 03/26/20 21:30 123 38 96/64 (75) 100 03/26/20 21:00 116 37 94/60 (71) 100 03/26/20 20:54 87/55 03/26/20 20:30 116 36 86/52 (63) 97 03/26/20 20:00 80 03/26/20 20:00 98.2 117 37 90/57 (68) 99 03/26/20 20:00 Mechanical Ventilator 03/26/20 20:00 122 03/26/20 19:30 120 38 92/62 (72) 100 03/26/20 19:27 121 36 80 03/26/20 19:00 122 38 97/66 (76) 100 03/26/20 18:30 123 39 102/68 (79) 100 03/26/20 18:00 115 35 97/67 (77) 97 03/26/20 17:58 93/64 03/26/20 17:45 112 36 93/64 (74) 100 03/26/20 17:30 108 35 86/61 (69) 100 03/26/20 17:25 109 35 90 03/26/20 17:15 108 36 90/64 (73) 100 03/26/20 17:00 97.7 110 37 88/64 (72) 98 03/26/20 16:00 112 33 94/64 (74) 98 03/26/20 16:00 90 03/26/20 16:00 Mechanical Ventilator 03/26/20 16:00 111 03/26/20 15:10 100 34 90 03/26/20 15:00 107 34 84/60 (68) 98 03/26/20 14:40 72/51 03/26/20 14:00 99 26 74/52 (59) 98 03/26/20 13:40 102 28 90 03/26/20 13:06 73/48 03/26/20 13:04 111 33 73/48 (56) 98 03/26/20 13:00 96.6 110 33 67/54 (58) 98 03/26/20 12:03 104 03/26/20 12:01 103 34 81/50 (60) 98 03/26/20 12:00 90 03/26/20 12:00 Mechanical Ventilator 03/26/20 11:20 104 36 90 Height (Feet): 4 Height (Inches): 11.00 Weight (Pounds): 105 HEENT: mucous membranes moist, other - orally intubated Respiratory/Chest: lungs clear, other - on ventilator Cardiovascular: tachycardia Abdomen: distended, other - orogastric tube Extremities: other - edema, cold extremities Skin: other - bruises Neurologic/Psychiatric: unresponsiveness Laboratory Tests Test 03/26/20 19:25 03/26/20 19:55 03/26/20 21:22 03/26/20 21:23 Lactic Acid Level 9.90 mmol/L (0.4-2.0) H White Blood Count 44.6 K/UL (4.8-10.8) *H Red Blood Count 2.65 M/UL (4.20-5.40) L Hemoglobin 7.7 G/DL (12.0-16.0) L Hematocrit 26.1 % (37.0-47.0) L Mean Corpuscular Volume 99 FL (80-99) Mean Corpuscular Hemoglobin 29.0 PG (27.0-31.0) Mean Corpuscular Hemoglobin Concent 29.3 G/DL (32.0-36.0) L Red Cell Distribution Width 18.4 % (11.6-14.8) H Platelet Count 71 K/UL (150-450) L Mean Platelet Volume 13.7 FL (6.5-10.1) H Neutrophils (%) (Auto) % (45.0-75.0) Lymphocytes (%) (Auto) % (20.0-45.0) Monocytes (%) (Auto) % (1.0-10.0) Eosinophils (%) (Auto) % (0.0-3.0) Basophils (%) (Auto) % (0.0-2.0) Differential Total Cells Counted 100 Neutrophils % (Manual) 94 % (45-75) H Lymphocytes % (Manual) 2 % (20-45) L Monocytes % (Manual) 3 % (1-10) Eosinophils % (Manual) 0 % (0-3) Basophils % (Manual) 0 % (0-2) Band Neutrophils 1 % (0-8) Nucleated Red Blood Cells 2 /100 WBC Platelet Estimate Decreased L Platelet Morphology Normal Polychromasia 1+ Hypochromasia 2+ Anisocytosis 1+ Prothrombin Time 22.8 SEC (9.30-11.50) H Prothromb Time International Ratio 2.2 (0.9-1.1) H Activated Partial Thromboplast Time 51 SEC (23-33) H Sodium Level 149 MMOL/L (136-145) H Potassium Level 3.2 MMOL/L (3.5-5.1) L Chloride Level 114 MMOL/L (98-107) H Carbon Dioxide Level 10 MMOL/L (21-32) L Anion Gap 25 mmol/L (5-15) H Blood Urea Nitrogen 36 mg/dL (7-18) H Creatinine 2.4 MG/DL (0.55-1.30) H Estimat Glomerular Filtration Rate 21.3 mL/min (>60) Glucose Level 14 MG/DL (74-106) *L Calcium Level 8.3 MG/DL (8.5-10.1) L Total Bilirubin 10.1 MG/DL (0.2-1.0) H Direct Bilirubin 8.5 MG/DL (0.0-0.3) H Aspartate Amino Transf (AST/SGOT) 518 U/L (15-37) H Alanine Aminotransferase (ALT/SGPT) 71 U/L (12-78) Alkaline Phosphatase 256 U/L (46-116) H Total Creatine Kinase 691 U/L (26-308) H Troponin I 0.608 ng/mL (0.000-0.056) Pro-B-Type Natriuretic Peptide 06357 pg/mL (0-125) H Total Protein 5.0 G/DL (6.4-8.2) L Albumin 2.4 G/DL (3.4-5.0) L Globulin 2.6 g/dL Albumin/Globulin Ratio 0.9 (1.0-2.7) L Arterial Blood pH 7.241 (7.350-7.450) Arterial Blood Partial Pressure CO2 20.1 mmHg (35.0-45.0) *L Arterial Blood Partial Pressure O2 94.7 mmHg (75.0-100.0) Arterial Blood HCO3 8.4 mmol/L (22.0-26.0) *L Arterial Blood Oxygen Saturation 94.9 % (95-100) L Arterial Blood Base Excess -17.3 (-2-2) *L Shaun Test Positive POC Whole Blood Glucose 81 MG/DL (74-106) Test 03/27/20 02:45 03/27/20 04:15 03/27/20 08:20 POC Whole Blood Glucose 120 MG/DL (74-106) H White Blood Count 44.5 K/UL (4.8-10.8) *H Red Blood Count 2.38 M/UL (4.20-5.40) L Hemoglobin 7.0 G/DL (12.0-16.0) L Hematocrit 23.3 % (37.0-47.0) L Mean Corpuscular Volume 98 FL (80-99) Mean Corpuscular Hemoglobin 29.3 PG (27.0-31.0) Mean Corpuscular Hemoglobin Concent 30.0 G/DL (32.0-36.0) L Red Cell Distribution Width 18.8 % (11.6-14.8) H Platelet Count 66 K/UL (150-450) L Mean Platelet Volume 12.3 FL (6.5-10.1) H Neutrophils (%) (Auto) % (45.0-75.0) Lymphocytes (%) (Auto) % (20.0-45.0) Monocytes (%) (Auto) % (1.0-10.0) Eosinophils (%) (Auto) % (0.0-3.0) Basophils (%) (Auto) % (0.0-2.0) Differential Total Cells Counted 100 Neutrophils % (Manual) 87 % (45-75) H Lymphocytes % (Manual) 3 % (20-45) L Monocytes % (Manual) 5 % (1-10) Eosinophils % (Manual) 0 % (0-3) Basophils % (Manual) 0 % (0-2) Band Neutrophils 5 % (0-8) Platelet Estimate Decreased L Platelet Morphology Normal Hypochromasia 1+ Anisocytosis 1+ Sodium Level 150 MMOL/L (136-145) H Potassium Level 3.1 MMOL/L (3.5-5.1) L Chloride Level 114 MMOL/L (98-107) H Carbon Dioxide Level 12 MMOL/L (21-32) L Anion Gap 24 mmol/L (5-15) H Blood Urea Nitrogen 34 mg/dL (7-18) H Creatinine 2.4 MG/DL (0.55-1.30) H Estimat Glomerular Filtration Rate 21.3 mL/min (>60) Glucose Level 132 MG/DL (74-106) #H Calcium Level 7.9 MG/DL (8.5-10.1) L Total Bilirubin 10.2 MG/DL (0.2-1.0) H Direct Bilirubin 8.4 MG/DL (0.0-0.3) H Aspartate Amino Transf (AST/SGOT) 676 U/L (15-37) H Alanine Aminotransferase (ALT/SGPT) 111 U/L (12-78) H Alkaline Phosphatase 240 U/L (46-116) H Total Protein 4.8 G/DL (6.4-8.2) L Albumin 2.2 G/DL (3.4-5.0) L Globulin 2.6 g/dL Albumin/Globulin Ratio 0.8 (1.0-2.7) L Lactic Acid Level 7.60 mmol/L (0.4-2.0) H Current Medications Medications (Trade) Dose Ordered Sig/Joanna Route PRN Reason Start Time Stop Time Status Last Admin Dose Admin Amylase/Lipase/ Protease (Hallie TAYLOR 36,000 units cap) 1 ea WITH SNACKS PRN ORAL give with snacks 03/21/20 09:30 06/19/20 09:29 03/22/20 12:10 Chlorhexidine Gluconate (Roxanne-Hex 2%) 1 applic DAILY@2000 TOPIC 03/27/20 20:00 06/25/20 19:59 Dextrose (Dextrose 50%) 25 ml Q30M PRN IV Hypoglycemia 03/20/20 20:45 06/18/20 20:44 Dextrose (Dextrose 50%) 50 ml Q30M PRN IV Hypoglycemia 03/20/20 20:45 06/18/20 20:44 03/26/20 20:51 Famotidine (Pepcid) 20 mg BID ORAL 03/20/20 21:35 06/18/20 21:34 03/27/20 08:23 Folic Acid 1 mg/ Magnesium Sulfate 2000 mg/ Multivitamins 10 ml/Sodium Chloride 1,014.2 ml @ 125 mls/ hr Q24H IV 03/21/20 12:00 04/20/20 11:59 03/26/20 12:11 Lactulose (Cephulac) 30 gm EVERY 8 HOURS ORAL 03/25/20 14:00 04/24/20 13:59 03/26/20 13:07 Magnesium Hydroxide (Mom) 30 ml HSPRN PRN ORAL Constipation 03/20/20 20:45 04/19/20 20:44 Midodrine (Pro-Amatine) 5 mg TID ORAL 03/21/20 10:00 06/19/20 09:59 03/27/20 08:23 Morphine Sulfate (Morphine Sulfate) 2 mg Q3H PRN IVP Moderate Pain (Pain Scale 4-6) 03/20/20 21:00 03/27/20 20:59 03/23/20 00:28 Morphine Sulfate (Morphine Sulfate) 4 mg Q3H PRN IVP Severe Pain (Pain Scale 7-10) 03/20/20 21:00 03/27/20 20:59 Norepinephrine Bitartrate 250 ml @ 7.5 mls/hr Q24H IV 03/26/20 14:30 03/29/20 14:26 03/27/20 10:00 Pentoxifylline (TRENtal) 400 mg THREE TIMES A DAY ORAL 03/23/20 22:00 06/21/20 21:59 03/27/20 08:23 Piperacillin Sod/ Tazobactam Sod 3.375 gm/Sodium Chloride 110 ml @ 27.5 mls/hr Q12HR IVPB 03/26/20 14:00 04/02/20 13:59 03/27/20 08:23 Rifaximin (Xifaxan) 550 mg EVERY 12 HOURS ORAL 03/22/20 21:00 04/03/20 23:59 03/27/20 08:23 Sodium Bicarbonate 150 ml/Dextrose 1,150 ml @ 100 mls/hr [id number] IV 03/26/20 23:00 04/25/20 22:59 03/27/20 09:30 Spironolactone (Aldactone) 50 mg DAILY ORAL 03/22/20 09:00 04/21/20 08:59 03/25/20 09:40 Thiamine HCl 100 mg/Dextrose 56 ml @ 112 mls/hr Q24H IVPB 03/21/20 12:00 04/20/20 11:59 03/26/20 12:12 Zolpidem Tartrate (Ambien) 5 mg DAILYPRN PRN ORAL Insomnia 03/20/20 20:45 03/27/20 20:44 03/22/20 23:38 Thom Diaz MD Mar 27, 2020 11:13
[2020-03-27] MEDS: Thiamine 100mg IVPB (Q24H) IVPB SCH ×2 (12:14)
[2020-03-27] MEDS: Folic Acid 1 MG, Magnesium Sulfate 2,000 MG, Multivitamin - 12 Injection 10 ML in Sodiu... IV SCH (12:15)
[2020-03-27] MEDS ORDERED: Vancomycin 1gm in D5W 275ml IVPB SCH (14:00)
--- NOTE | 2020-03-27 14:05 | General Progress Note ---
Subjective Allergies: Coded Allergies: No Known Allergies (Unverified , 03/20/20) Subjective doing poorly intubated Objective Last 24 Hour Vital Signs Date Time Temp Pulse Resp B/P (MAP) Pulse Ox O2 Delivery O2 Flow Rate FiO2 03/27/20 13:00 87 26 96/54 (68) 100 03/27/20 13:00 85 24 60 03/27/20 12:45 90 28 90/49 (63) 100 03/27/20 12:16 98/63 03/27/20 12:16 98/63 03/27/20 12:00 Mechanical Ventilator 03/27/20 12:00 60 03/27/20 12:00 98.7 93 28 84/47 (59) 100 03/27/20 11:30 91 29 89/51 (64) 100 03/27/20 11:00 97 29 85/52 (63) 100 03/27/20 11:00 97 28 60 03/27/20 10:45 125 29 91/59 (70) 98 03/27/20 10:00 97 31 90/55 (67) 99 03/27/20 10:00 90/55 03/27/20 09:30 103 27 93/58 (70) 100 03/27/20 09:00 92 24 80 03/27/20 09:00 94 24 87/52 (64) 100 03/27/20 08:30 99 25 93/56 (68) 100 03/27/20 08:23 92/59 03/27/20 08:00 Mechanical Ventilator 03/27/20 08:00 99.5 103 31 90/59 (69) 100 03/27/20 08:00 80 03/27/20 07:43 105 30 80 03/27/20 07:30 98 25 92/51 (65) 100 03/27/20 07:26 87/49 03/27/20 07:00 99 26 93/55 (68) 100 03/27/20 06:30 96 25 91/52 (65) 100 03/27/20 06:00 104 29 93/56 (68) 100 03/27/20 05:30 100 27 88/53 (65) 100 03/27/20 05:04 98 28 80 03/27/20 05:01 84/49 03/27/20 05:00 100 29 84/49 (61) 100 03/27/20 04:30 106 30 88/54 (65) 100 03/27/20 04:00 80 03/27/20 04:00 120 03/27/20 04:00 98.8 118 29 96/63 (74) 100 03/27/20 04:00 Mechanical Ventilator 03/27/20 03:45 115 32 90/56 (67) 100 03/27/20 03:30 117 30 92/58 (69) 100 03/27/20 03:07 123 33 80 03/27/20 03:00 116 30 100/59 (73) 100 03/27/20 02:30 118 32 90/59 (69) 100 03/27/20 02:00 118 32 95/57 (70) 100 03/27/20 01:30 120 29 91/61 (71) 100 03/27/20 01:00 120 34 90/57 (68) 100 03/27/20 00:55 120 35 80 03/27/20 00:30 119 35 92/57 (69) 100 03/27/20 00:25 97/62 03/27/20 00:00 Mechanical Ventilator 03/27/20 00:00 98.1 119 34 94/58 (70) 100 03/26/20 23:30 110 25 84/58 (67) 100 03/26/20 23:00 119 36 85/54 (64) 100 03/26/20 22:58 118 34 80 03/26/20 22:30 122 37 85/55 (65) 100 03/26/20 22:00 123 38 96/64 (75) 100 03/26/20 21:38 125 37 80 03/26/20 21:30 123 38 96/64 (75) 100 03/26/20 21:00 116 37 94/60 (71) 100 03/26/20 20:54 87/55 03/26/20 20:30 116 36 86/52 (63) 97 03/26/20 20:00 80 03/26/20 20:00 98.2 117 37 90/57 (68) 99 03/26/20 20:00 Mechanical Ventilator 03/26/20 20:00 122 03/26/20 19:30 120 38 92/62 (72) 100 03/26/20 19:27 121 36 80 03/26/20 19:00 122 38 97/66 (76) 100 03/26/20 18:30 123 39 102/68 (79) 100 03/26/20 18:00 115 35 97/67 (77) 97 03/26/20 17:58 93/64 03/26/20 17:45 112 36 93/64 (74) 100 03/26/20 17:30 108 35 86/61 (69) 100 03/26/20 17:25 109 35 90 03/26/20 17:15 108 36 90/64 (73) 100 03/26/20 17:00 97.7 110 37 88/64 (72) 98 03/26/20 16:00 112 33 94/64 (74) 98 03/26/20 16:00 90 03/26/20 16:00 Mechanical Ventilator 03/26/20 16:00 111 03/26/20 15:10 100 34 90 03/26/20 15:00 107 34 84/60 (68) 98 03/26/20 14:40 72/51 Intake and Output 03/26/20 03/27/20 19:00 07:00 Intake Total 1473.540 ml 2120.0 ml Output Total 35 ml 105 ml Balance 1438.540 ml 2015.0 ml IV Total 1253.540 ml 2120.0 ml Other 220 ml Output Urine Total 35 ml 105 ml Laboratory Tests 03/26/20 19:25: Lactic Acid Level 9.90H 03/26/20 19:55: White Blood Count 44.6*H, Red Blood Count 2.65L, Hemoglobin 7.7L, Hematocrit 26.1L, Mean Corpuscular Volume 99, Mean Corpuscular Hemoglobin 29.0, Mean Cor puscular Hemoglobin Concent 29.3L, Red Cell Distribution Width 18.4H, Platelet Count 71L, Mean Platelet Volume 13.7H, Neutrophils (%) (Auto) , Lymphocytes (%) (Auto) , Monocytes (%) (Auto) , Eosinophils (%) (Auto) , Basophils (%) (Auto) , Differential Total Cells Counted 100, Neutrophils % (Manual) 94H, Lymphocytes % (Manual) 2L, Monocytes % (Manual) 3, Eosinophils % (Manual) 0, Basophils % (Ma nual) 0, Band Neutrophils 1, Nucleated Red Blood Cells 2, Platelet Estimate DecreasedL, Platelet Morphology Normal, Polychromasia 1+, Hypochromasia 2+, Anisocytosis 1+, Prothrombin Time 22.8H, Prothromb Time International Ratio 2.2H , Activated Partial Thromboplast Time 51H, Sodium Level 149H, Potassium Level 3.2L, Chloride Level 114H, Carbon Dioxide Level 10L, Anion Gap 25H, Blood Urea Nitrogen 36H, Creatinine 2.4H, Estimat Glomerular Filtration Rate 21.3, Glucose Level 14*L, Calcium Level 8.3L, Total Bilirubin 10.1H, Direct Bilirubin 8.5H, Aspartate Amino Transf (AST/SGOT) 518H, Alanine Aminotransferase (ALT/SGPT) 71, Alkaline Phosphatase 256H, Total Creatine Kinase 691H, Troponin I 0.608H, Pro-B-Type Natriuretic Peptide 86033F, Total Protein 5.0L, Albumin 2.4L, Globulin 2.6, Albumin/Globulin Ratio 0.9L 03/26/20 20:48: POC Whole Blood Glucose [Pending] 03/26/20 21:22: Arterial Blood pH 7.241*L, Arterial Blood Partial Pressure CO2 20.1*L, Arterial Blood Partial Pressure O2 94.7, Arterial Blood HCO3 8.4*L, Arterial Blood Oxygen Saturation 94.9L, Arterial Blood Base Excess -17.3*L, Shaun Test Positive 03/26/20 21:23: POC Whole Blood Glucose 81 03/27/20 02:45: POC Whole Blood Glucose 120H 03/27/20 04:15: White Blood Count 44.5*H, Red Blood Count 2.38L, Hemoglobin 7.0L, Hematocrit 23.3L, Mean Corpuscular Volume 98, Mean Corpuscular Hemoglobin 29.3, Mean Corpuscular Hemoglobin Concent 30.0L, Red Cell Distribution Width 18.8H, Platelet Count 66L, Mean Platelet Volume 12.3H, Neutrophils (%) (Auto) , Lymphoc ytes (%) (Auto) , Monocytes (%) (Auto) , Eosinophils (%) (Auto) , Basophils (%) (Auto) , Differential Total Cells Counted 100, Neutrophils % (Manual) 87H, Lymphocytes % (Manual) 3L, Monocytes % (Manual) 5, Eosinophils % (Manual) 0, Basophils % (Manual) 0, Band Neutrophils 5, Platelet Estimate DecreasedL, Platelet Morphology Normal, Hypochromasia 1+, Anisocytosis 1+, Sodium Level 150H , Potassium Level 3.1L, Chloride Level 114H, Carbon Dioxide Level 12L, Anion Gap 24H, Blood Urea Nitrogen 34H, Creatinine 2.4H, Estimat Glomerular Filtration Rate 21.3, Glucose Level 132#H, Calcium Level 7.9L, Total Bilirubin 10.2H, Direct Bilirubin 8.4H, Aspartate Amino Transf (AST/SGOT) 676H, Alanine Aminotra nsferase (ALT/SGPT) 111H, Alkaline Phosphatase 240H, Total Protein 4.8L, Albumin 2.2L, Globulin 2.6, Albumin/Globulin Ratio 0.8L 03/27/20 08:20: Lactic Acid Level 7.60H Height (Feet): 4 Height (Inches): 11.00 Weight (Pounds): 105 Cardiovascular: normal rate Respiratory/Chest: rhonchi - bilaterally Abdomen: distended Edema: 4+ Generalized Assessment/Plan Problem List: (1) Acute renal failure ICD Codes: N17.9 - Acute kidney failure, unspecified SNOMED: 93131928 Qualifiers: Qualified Codes: N17.9 - Acute kidney failure, unspecified (2) Cirrhosis ICD Codes: K74.60 - Unspecified cirrhosis of liver SNOMED: 09057975 Qualifiers: Qualified Codes: K70.31 - Alcoholic cirrhosis of liver with ascites (3) Anemia ICD Codes: D64.9 - Anemia, unspecified SNOMED: 467713617 Qualifiers: Qualified Codes: D64.9 - Anemia, unspecified (4) Sepsis ICD Codes: A41.9 - Sepsis, unspecified organism SNOMED: 04160929 (5) Hypokalemia ICD Codes: E87.6 - Hypokalemia SNOMED: 88153094 (6) Cardiopulmonary arrest ICD Codes: I46.9 - Cardiac arrest, cause unspecified SNOMED: 454036993 (7) E. coli UTI ICD Codes: N39.0 - Urinary tract infection, site not specified; B96.20 - Unspecified Escherichia coli [E. coli] as the cause of diseases classified elsew here SNOMED: 076519469 (8) Hypoglycemia ICD Codes: E16.2 - Hypoglycemia, unspecified SNOMED: 193888655 Assessment/Plan: abxs keep on on pressors follow labs Pulm and cardiology F/U Discussed with RN follow labs full code per family IV D5 with bicarb total time spent 38 min Erick Diaz MD Mar 27, 2020 14:05
[2020-03-27] MEDS: Norepinephrine Bitartrate 16 MG in Sodium Chloride 484 ML IV SCH (17:10)
[2020-03-27] MEDS: Morphine Sulfate 2mg/ml Inj(IV/IM USE ONLY) IVP PRN (17:46)
--- NOTE | 2020-03-27 18:14 | Cardiology Progress Note ---
Assessment/Plan Assessment/Plan 1. Cardiopulmonary arrest, status post 19 minutes of advanced and basic cardiac life support. 2. Hypotension / septic shock 3. Leukocytosis, leukemoid reaction. 4. Coagulopathy. 5. Thrombocytopenia. 6. Cirrhosis. 7. Perihilar infiltrate. 8. Possible chronic pancreatitis with calcification on CT. 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 10. Gas and fluid collection adjacent to the vaginal wall. 11. Lactic acidosis. 12. Hepatic encephalopathy 13. metabolic acidosis 14. LV systolic dysfunction 15. coagulopathy 16. thrombocytopenia diarrhea on laculose o iv abdx empricd vent support pressor to main tain map greater thatn 60 tele reviweed sincue echo noted ef 40% with swma lft up metabolic acidosis noted yes will repat abg tomorrow mentation improved overnite but still not communicative probnois i guarded pt remain critical and at risk of dying contineu supportive measrues d/w rn etiology of gas noted in the pelvis on ct?? Subjective ROS Limited/Unobtainable: Yes Objective Last 24 Hour Vital Signs Date Time Temp Pulse Resp B/P (MAP) Pulse Ox O2 Delivery O2 Flow Rate FiO2 03/27/20 17:15 95/64 03/27/20 17:10 95/64 03/27/20 17:08 95/64 03/27/20 17:00 108 34 60 03/27/20 16:00 Mechanical Ventilator 03/27/20 16:00 60 03/27/20 15:00 126 32 97/63 (74) 100 03/27/20 14:50 128 38 60 03/27/20 14:30 95 32 100/60 (73) 100 03/27/20 14:28 92/53 03/27/20 14:00 85 24 88/59 (69) 100 03/27/20 13:30 92 21 94/50 (65) 100 03/27/20 13:00 87 26 96/54 (68) 100 03/27/20 13:00 85 24 60 03/27/20 12:45 90 28 90/49 (63) 100 03/27/20 12:16 98/63 03/27/20 12:16 98/63 03/27/20 12:00 Mechanical Ventilator 03/27/20 12:00 60 03/27/20 12:00 98.7 93 28 84/47 (59) 100 10/23/20 11:30 91 29 89/51 (64) 100 03/27/20 11:00 97 29 85/52 (63) 100 03/27/20 11:00 97 28 60 03/27/20 10:45 125 29 91/59 (70) 98 03/27/20 10:00 97 31 90/55 (67) 99 03/27/20 10:00 90/55 03/27/20 09:30 103 27 93/58 (70) 100 03/27/20 09:00 92 24 80 03/27/20 09:00 94 24 87/52 (64) 100 03/27/20 08:30 99 25 93/56 (68) 100 03/27/20 08:23 92/59 03/27/20 08:00 Mechanical Ventilator 03/27/20 08:00 99.5 103 31 90/59 (69) 100 03/27/20 08:00 80 03/27/20 07:43 105 30 80 03/27/20 07:30 98 25 92/51 (65) 100 03/27/20 07:26 87/49 03/27/20 07:00 99 26 93/55 (68) 100 03/27/20 06:30 96 25 91/52 (65) 100 03/27/20 06:00 104 29 93/56 (68) 100 03/27/20 05:30 100 27 88/53 (65) 100 03/27/20 05:04 98 28 80 03/27/20 05:01 84/49 03/27/20 05:00 100 29 84/49 (61) 100 03/27/20 04:30 106 30 88/54 (65) 100 03/27/20 04:00 80 03/27/20 04:00 120 03/27/20 04:00 98.8 118 29 96/63 (74) 100 03/27/20 04:00 Mechanical Ventilator 03/27/20 03:45 115 32 90/56 (67) 100 03/27/20 03:30 117 30 92/58 (69) 100 03/27/20 03:07 123 33 80 03/27/20 03:00 116 30 100/59 (73) 100 03/27/20 02:30 118 32 90/59 (69) 100 03/27/20 02:00 118 32 95/57 (70) 100 03/27/20 01:30 120 29 91/61 (71) 100 03/27/20 01:00 120 34 90/57 (68) 100 03/27/20 00:55 120 35 80 03/27/20 00:30 119 35 92/57 (69) 100 03/27/20 00:25 97/62 03/27/20 00:00 Mechanical Ventilator 03/27/20 00:00 98.1 119 34 94/58 (70) 100 03/26/20 23:30 110 25 84/58 (67) 100 03/26/20 23:00 119 36 85/54 (64) 100 03/26/20 22:58 118 34 80 03/26/20 22:30 122 37 85/55 (65) 100 03/26/20 22:00 123 38 96/64 (75) 100 03/26/20 21:38 125 37 80 03/26/20 21:30 123 38 96/64 (75) 100 03/26/20 21:00 116 37 94/60 (71) 100 03/26/20 20:54 87/55 03/26/20 20:30 116 36 86/52 (63) 97 03/26/20 20:00 80 03/26/20 20:00 98.2 117 37 90/57 (68) 99 03/26/20 20:00 Mechanical Ventilator 03/26/20 20:00 122 03/26/20 19:30 120 38 92/62 (72) 100 03/26/20 19:27 121 36 80 03/26/20 19:00 122 38 97/66 (76) 100 03/26/20 18:30 123 39 102/68 (79) 100 General Appearance: no apparent distress, on vent, patient on isolation, isolation precautions Cardiovascular: normal rate, tachycardia Respiratory/Chest: rhonchi - bilaterally Abdomen: normal bowel sounds, non tender, soft Extremities: moderate edema Intake and Output 03/26/20 03/27/20 19:00 07:00 Intake Total 1473.540 ml 2120.0 ml Output Total 35 ml 105 ml Balance 1438.540 ml 2015.0 ml IV Total 1253.540 ml 2120.0 ml Other 220 ml Output Urine Total 35 ml 105 ml Laboratory Tests Test 03/26/20 19:25 03/26/20 19:55 03/26/20 20:48 03/26/20 21:22 Lactic Acid Level 9.90 mmol/L (0.4-2.0) H White Blood Count 44.6 K/UL (4.8-10.8) *H Red Blood Count 2.65 M/UL (4.20-5.40) L Hemoglobin 7.7 G/DL (12.0-16.0) L Hematocrit 26.1 % (37.0-47.0) L Mean Corpuscular Volume 99 FL (80-99) Mean Corpuscular Hemoglobin 29.0 PG (27.0-31.0) Mean Corpuscular Hemoglobin Concent 29.3 G/DL (32.0-36.0) L Red Cell Distribution Width 18.4 % (11.6-14.8) H Platelet Count 71 K/UL (150-450) L Mean Platelet Volume 13.7 FL (6.5-10.1) H Neutrophils (%) (Auto) % (45.0-75.0) Lymphocytes (%) (Auto) % (20.0-45.0) Monocytes (%) (Auto) % (1.0-10.0) Eosinophils (%) (Auto) % (0.0-3.0) Basophils (%) (Auto) % (0.0-2.0) Differential Total Cells Counted 100 Neutrophils % (Manual) 94 % (45-75) H Lymphocytes % (Manual) 2 % (20-45) L Monocytes % (Manual) 3 % (1-10) Eosinophils % (Manual) 0 % (0-3) Basophils % (Manual) 0 % (0-2) Band Neutrophils 1 % (0-8) Nucleated Red Blood Cells 2 /100 WBC Platelet Estimate Decreased L Platelet Morphology Normal Polychromasia 1+ Hypochromasia 2+ Anisocytosis 1+ Prothrombin Time 22.8 SEC (9.30-11.50) H Prothromb Time International Ratio 2.2 (0.9-1.1) H Activated Partial Thromboplast Time 51 SEC (23-33) H Sodium Level 149 MMOL/L (136-145) H Potassium Level 3.2 MMOL/L (3.5-5.1) L Chloride Level 114 MMOL/L (98-107) H Carbon Dioxide Level 10 MMOL/L (21-32) L Anion Gap 25 mmol/L (5-15) H Blood Urea Nitrogen 36 mg/dL (7-18) H Creatinine 2.4 MG/DL (0.55-1.30) H Estimat Glomerular Filtration Rate 21.3 mL/min (>60) Glucose Level 14 MG/DL (74-106) *L Calcium Level 8.3 MG/DL (8.5-10.1) L Total Bilirubin 10.1 MG/DL (0.2-1.0) H Direct Bilirubin 8.5 MG/DL (0.0-0.3) H Aspartate Amino Transf (AST/SGOT) 518 U/L (15-37) H Alanine Aminotransferase (ALT/SGPT) 71 U/L (12-78) Alkaline Phosphatase 256 U/L (46-116) H Total Creatine Kinase 691 U/L (26-308) H Troponin I 0.608 ng/mL (0.000-0.056) Pro-B-Type Natriuretic Peptide 40644 pg/mL (0-125) H Total Protein 5.0 G/DL (6.4-8.2) L Albumin 2.4 G/DL (3.4-5.0) L Globulin 2.6 g/dL Albumin/Globulin Ratio 0.9 (1.0-2.7) L POC Whole Blood Glucose Pending Arterial Blood pH 7.241 (7.350-7.450) Arterial Blood Partial Pressure CO2 20.1 mmHg (35.0-45.0) *L Arterial Blood Partial Pressure O2 94.7 mmHg (75.0-100.0) Arterial Blood HCO3 8.4 mmol/L (22.0-26.0) *L Arterial Blood Oxygen Saturation 94.9 % (95-100) L Arterial Blood Base Excess -17.3 (-2-2) *L Shaun Test Positive Test 03/26/20 21:23 03/27/20 02:45 03/27/20 04:15 03/27/20 08:20 POC Whole Blood Glucose 81 MG/DL (74-106) 120 MG/DL (74-106) H White Blood Count 44.5 K/UL (4.8-10.8) *H Red Blood Count 2.38 M/UL (4.20-5.40) L Hemoglobin 7.0 G/DL (12.0-16.0) L Hematocrit 23.3 % (37.0-47.0) L Mean Corpuscular Volume 98 FL (80-99) Mean Corpuscular Hemoglobin 29.3 PG (27.0-31.0) Mean Corpuscular Hemoglobin Concent 30.0 G/DL (32.0-36.0) L Red Cell Distribution Width 18.8 % (11.6-14.8) H Platelet Count 66 K/UL (150-450) L Mean Platelet Volume 12.3 FL (6.5-10.1) H Neutrophils (%) (Auto) % (45.0-75.0) Lymphocytes (%) (Auto) % (20.0-45.0) Monocytes (%) (Auto) % (1.0-10.0) Eosinophils (%) (Auto) % (0.0-3.0) Basophils (%) (Auto) % (0.0-2.0) Differential Total Cells Counted 100 Neutrophils % (Manual) 87 % (45-75) H Lymphocytes % (Manual) 3 % (20-45) L Monocytes % (Manual) 5 % (1-10) Eosinophils % (Manual) 0 % (0-3) Basophils % (Manual) 0 % (0-2) Band Neutrophils 5 % (0-8) Platelet Estimate Decreased L Platelet Morphology Normal Hypochromasia 1+ Anisocytosis 1+ Sodium Level 150 MMOL/L (136-145) H Potassium Level 3.1 MMOL/L (3.5-5.1) L Chloride Level 114 MMOL/L (98-107) H Carbon Dioxide Level 12 MMOL/L (21-32) L Anion Gap 24 mmol/L (5-15) H Blood Urea Nitrogen 34 mg/dL (7-18) H Creatinine 2.4 MG/DL (0.55-1.30) H Estimat Glomerular Filtration Rate 21.3 mL/min (>60) Glucose Level 132 MG/DL (74-106) #H Calcium Level 7.9 MG/DL (8.5-10.1) L Total Bilirubin 10.2 MG/DL (0.2-1.0) H Direct Bilirubin 8.4 MG/DL (0.0-0.3) H Aspartate Amino Transf (AST/SGOT) 676 U/L (15-37) H Alanine Aminotransferase (ALT/SGPT) 111 U/L (12-78) H Alkaline Phosphatase 240 U/L (46-116) H Total Protein 4.8 G/DL (6.4-8.2) L Albumin 2.2 G/DL (3.4-5.0) L Globulin 2.6 g/dL Albumin/Globulin Ratio 0.8 (1.0-2.7) L Lactic Acid Level 7.60 mmol/L (0.4-2.0) H Test 03/27/20 14:30 Lactic Acid Level 6.10 mmol/L (0.4-2.0) H Curtis Worley MD Mar 27, 2020 18:14
--- NOTE | 2020-03-27 18:26 | General Progress Note ---
Subjective Allergies: Coded Allergies: No Known Allergies (Unverified , 03/20/20) Subjective above noted seen in ICU doing poorly on pressors Objective Last 24 Hour Vital Signs Date Time Temp Pulse Resp B/P (MAP) Pulse Ox O2 Delivery O2 Flow Rate FiO2 03/27/20 17:15 95/64 03/27/20 17:10 95/64 03/27/20 17:08 95/64 03/27/20 17:00 108 34 60 03/27/20 16:00 Mechanical Ventilator 03/27/20 16:00 60 03/27/20 15:00 126 32 97/63 (74) 100 03/27/20 14:50 128 38 60 03/27/20 14:30 95 32 100/60 (73) 100 03/27/20 14:28 92/53 03/27/20 14:00 85 24 88/59 (69) 100 03/27/20 13:30 92 21 94/50 (65) 100 03/27/20 13:00 87 26 96/54 (68) 100 03/27/20 13:00 85 24 60 03/27/20 12:45 90 28 90/49 (63) 100 03/27/20 12:16 98/63 03/27/20 12:16 98/63 03/27/20 12:00 Mechanical Ventilator 03/27/20 12:00 60 03/27/20 12:00 98.7 93 28 84/47 (59) 100 03/27/20 11:30 91 29 89/51 (64) 100 03/27/20 11:00 97 29 85/52 (63) 100 03/27/20 11:00 97 28 60 03/27/20 10:45 125 29 91/59 (70) 98 03/27/20 10:00 97 31 90/55 (67) 99 03/27/20 10:00 90/55 03/27/20 09:30 103 27 93/58 (70) 100 03/27/20 09:00 92 24 80 03/27/20 09:00 94 24 87/52 (64) 100 03/27/20 08:30 99 25 93/56 (68) 100 03/27/20 08:23 92/59 03/27/20 08:00 Mechanical Ventilator 03/27/20 08:00 99.5 103 31 90/59 (69) 100 10/23/20 08:00 80 03/27/20 07:43 105 30 80 03/27/20 07:30 98 25 92/51 (65) 100 03/27/20 07:26 87/49 03/27/20 07:00 99 26 93/55 (68) 100 03/27/20 06:30 96 25 91/52 (65) 100 03/27/20 06:00 104 29 93/56 (68) 100 03/27/20 05:30 100 27 88/53 (65) 100 03/27/20 05:04 98 28 80 03/27/20 05:01 84/49 03/27/20 05:00 100 29 84/49 (61) 100 03/27/20 04:30 106 30 88/54 (65) 100 03/27/20 04:00 80 03/27/20 04:00 120 03/27/20 04:00 98.8 118 29 96/63 (74) 100 03/27/20 04:00 Mechanical Ventilator 03/27/20 03:45 115 32 90/56 (67) 100 03/27/20 03:30 117 30 92/58 (69) 100 03/27/20 03:07 123 33 80 03/27/20 03:00 116 30 100/59 (73) 100 03/27/20 02:30 118 32 90/59 (69) 100 03/27/20 02:00 118 32 95/57 (70) 100 03/27/20 01:30 120 29 91/61 (71) 100 03/27/20 01:00 120 34 90/57 (68) 100 03/27/20 00:55 120 35 80 03/27/20 00:30 119 35 92/57 (69) 100 03/27/20 00:25 97/62 03/27/20 00:00 Mechanical Ventilator 03/27/20 00:00 98.1 119 34 94/58 (70) 100 03/26/20 23:30 110 25 84/58 (67) 100 03/26/20 23:00 119 36 85/54 (64) 100 03/26/20 22:58 118 34 80 03/26/20 22:30 122 37 85/55 (65) 100 03/26/20 22:00 123 38 96/64 (75) 100 03/26/20 21:38 125 37 80 03/26/20 21:30 123 38 96/64 (75) 100 03/26/20 21:00 116 37 94/60 (71) 100 03/26/20 20:54 87/55 03/26/20 20:30 116 36 86/52 (63) 97 03/26/20 20:00 80 03/26/20 20:00 98.2 117 37 90/57 (68) 99 03/26/20 20:00 Mechanical Ventilator 03/26/20 20:00 122 03/26/20 19:30 120 38 92/62 (72) 100 03/26/20 19:27 121 36 80 03/26/20 19:00 122 38 97/66 (76) 100 03/26/20 18:30 123 39 102/68 (79) 100 Intake and Output 03/26/20 03/27/20 19:00 07:00 Intake Total 1473.540 ml 2120.0 ml Output Total 35 ml 105 ml Balance 1438.540 ml 2015.0 ml IV Total 1253.540 ml 2120.0 ml Other 220 ml Output Urine Total 35 ml 105 ml Laboratory Tests 03/26/20 19:25: Lactic Acid Level 9.90H 03/26/20 19:55: White Blood Count 44.6*H, Red Blood Count 2.65L, Hemoglobin 7.7L, Hematocrit 26.1L, Mean Corpuscular Volume 99, Mean Corpuscular Hemoglobin 29.0, Mean Corpuscular Hemoglobin Concent 29.3L, Red Cell Distribution Width 18.4H, Platelet Count 71L, Mean Platelet Volume 13.7H, Neutrophils (%) (Auto) , Lymphocytes (%) (Auto) , Monocytes (%) (Auto) , Eosinophils (%) (Auto) , Basophils (%) (Auto) , Differential Total Cells Counted 100, Neutrophils % (Manual) 94H, Lymphocytes % (Manual) 2L, Monocytes % (Manual) 3, Eosinophils % (Manual) 0, Basophils % (Manual) 0, Band Neutrophils 1, Nucleated Red Blood Cells 2, Platelet Estimate DecreasedL, Platelet Morphology Normal, Polychromasia 1+, Hypochromasia 2+, Anisocytosis 1+, Prothrombin Time 22.8H, Prothromb Time International Ratio 2.2H, Activated Partial Thromboplast Time 51H, Sodium Level 149H, Potassium Level 3.2L, Chloride Level 114H, Carbon Dioxide Level 10L, Anion Gap 25H, Blood Urea Nitrogen 36H, Creatinine 2.4H, Estimat Glomerular Filtration Rate 21.3, Glucose Level 14*L, Calcium Level 8.3L, Total Bilirubin 10.1H, Direct Bilirubin 8.5H, Aspartate Amino Transf (AST/SGOT) 518H, Alanine Aminotransferase (ALT/SGPT) 71, Alkaline Phosphatase 256H, Total Creatine Kinase 691H, Troponin I 0.608H, Pro-B-Type Natriuretic Peptide 73735L, Total Protein 5.0L, Albumin 2.4L, Globulin 2.6, Albumin/Globulin Ratio 0.9L 03/26/20 20:48: POC Whole Blood Glucose [Pending] 03/26/20 21:22: Arterial Blood pH 7.241*L, Arterial Blood Partial Pressure CO2 20.1*L, Arterial Blood Partial Pressure O2 94.7, Arterial Blood HCO3 8.4*L, Arterial Blood Oxygen Saturation 94.9L, Arterial Blood Base Excess -17.3*L, Shaun Test Positive 03/26/20 21:23: POC Whole Blood Glucose 81 03/27/20 02:45: POC Whole Blood Glucose 120H 03/27/20 04:15: White Blood Count 44.5*H, Red Blood Count 2.38L, Hemoglobin 7.0L, Hematocrit 23.3L, Mean Corpuscular Volume 98, Mean Corpuscular Hemoglobin 29.3, Mean Corpuscular Hemoglobin Concent 30.0L, Red Cell Distribution Width 18.8H, Platelet Count 66L, Mean Platelet Volume 12.3H, Neutrophils (%) (Auto) , Lymphocytes (%) (Auto) , Monocytes (%) (Auto) , Eosinophils (%) (Auto) , Basophi ls (%) (Auto) , Differential Total Cells Counted 100, Neutrophils % (Manual) 87H , Lymphocytes % (Manual) 3L, Monocytes % (Manual) 5, Eosinophils % (Manual) 0, Basophils % (Manual) 0, Band Neutrophils 5, Platelet Estimate DecreasedL, Platelet Morphology Normal, Hypochromasia 1+, Anisocytosis 1+, Sodium Level 150H , Potassium Level 3.1L, Chloride Level 114H, Carbon Dioxide Level 12L, Anion Gap 24H, Blood Urea Nitrogen 34H, Creatinine 2.4H, Estimat Glomerular Filtration Rate 21.3, Glucose Level 132#H, Calcium Level 7.9L, Total Bilirubin 10.2H, Direct Bilirubin 8.4H, Aspartate Amino Transf (AST/SGOT) 676H, Alanine Aminotransferase (ALT/SGPT) 111H, Alkaline Phosphatase 240H, Total Protein 4.8L, Albumin 2.2L, Globulin 2.6, Albumin/Globulin Ratio 0.8L 03/27/20 08:20: Lactic Acid Level 7.60H 03/27/20 14:30: Lactic Acid Level 6.10H Height (Feet): 4 Height (Inches): 11.00 Weight (Pounds): 105 Objective cathexic woman with distended abdomen NCAT, (+) ETT coarse BS RR abd distended, not tense no edema Assessment/Plan Assessment/Plan: Assessment - EtOH cirrhosis (negative hepatitis serologies) - EtOH Hepatitis - not candidate for steroids due to elevated WBC - Ascites - negative paracentesis for SBP - shock - shocked liver - lactic acidosis - worsening coagulopathy - PNA and hypoxia - dyspnea and respiratory failure - azotemia, pre-renal vs HRS - jaundice - Moribund Recommendations - Vent and ICU care - Pressors - abx - Trental - lactulose / xifaxan - follow labs Nadine Childers MD Mar 27, 2020 18:26
[2020-03-27] MEDS: Dyna-Hex 2% Top Sol 2oz TOPIC SCH (20:26)
[2020-03-27] MEDS ORDERED: NS 500 ML IVPB ONE (23:45)
[2020-03-28] VITALS (52 sets, daily range): BP systolic 32–115; BP diastolic 16–80
[2020-03-28] MEDS: Norepinephrine Bitartrate 16 MG in Sodium Chloride 484 ML IV SCH ×3 (02:55→19:54)
[2020-03-28 05:14] LABS: HEMATOCRIT 22.2 % (37.0-47.0); MEAN CORPUSCULAR VOLUME 97 FL (80-99); PLATELET COUNT 37 K/UL (150-450); RED BLOOD COUNT 2.29 M/UL (4.20-5.40); RED CELL DISTRIBUTION WIDTH 18.6 % (11.6-14.8)
[2020-03-28 05:20] LABS: INR 2.1 (0.9-1.1)
[2020-03-28 05:43] LABS: HEMOGLOBIN 6.7 G/DL (12.0-16.0); WHITE BLOOD COUNT 53.9 K/UL (4.8-10.8)
[2020-03-28 05:53] LABS: ALBUMIN 1.9 G/DL (3.4-5.0); ALBUMIN/GLOBULIN RATIO 0.6 (1.0-2.7); BILIRUBIN,TOTAL 9.6 MG/DL (0.2-1.0); CALCIUM 7.3 MG/DL (8.5-10.1); CREATININE 2.4 MG/DL (0.55-1.30); POTASSIUM 2.8 MMOL/L (3.5-5.1)
[2020-03-28 05:57] LABS: CREATINE KINASE 924 U/L (26-308)
[2020-03-28] MEDS: Lactulose 20gm/30ml UDC ORAL SCH ×3 (06:00→20:20)
[2020-03-28] MEDS ORDERED: Vancomycin 1gm/D5W 275ml IVPB ONE ×2 (08:00)
--- NOTE | 2020-03-28 08:45 | Diagnostic Imaging Report ---
EXAM: XR Chest, 1 View CLINICAL HISTORY: ASTHMA TECHNIQUE: Frontal view of the chest. COMPARISON: 03/26/20 FINDINGS: Lungs: Since the previous study, there has been worsening moderate diffuse bilateral alveolar infiltrates consistent with bilateral pneumonia. Pleural space: Unremarkable. No pneumothorax. Heart: Unremarkable. No cardiomegaly. Mediastinum: Unremarkable. Bones/joints: Unremarkable. Tubes, lines and devices: There is an endotracheal tube and NG tube in good position. IMPRESSION: Since the previous study, there has been worsening moderate diffuse bilateral alveolar infiltrates consistent with bilateral pneumonia.
[2020-03-28] MEDS: Spironolactone 50mg tab ORAL SCH (09:23)
[2020-03-28] MEDS: Piperacillin/Tazobactam 3.375 GM in NS 110 ML IVPB SCH ×2 (10:00→20:20)
[2020-03-28] MEDS: Sodium Bicarbonate 150 ML in D5W 1000ml 1,000 ML IV SCH ×2 (10:00→22:00)
--- NOTE | 2020-03-28 11:09 | General Progress Note ---
Subjective Allergies: Coded Allergies: No Known Allergies (Unverified , 03/20/20) Subjective above noted seen in ICU doing poorly on pressors d/w RN Objective Last 24 Hour Vital Signs Date Time Temp Pulse Resp B/P (MAP) Pulse Ox O2 Delivery O2 Flow Rate FiO2 03/28/20 11:00 110 40 98/42 (60) 03/28/20 11:00 98/42 03/28/20 10:00 112 40 100/69 (79) 90 03/28/20 10:00 100/69 03/28/20 09:30 97 36 94/62 (73) 90 03/28/20 09:00 93/60 03/28/20 09:00 93/60 03/28/20 09:00 90 29 93/60 (71) 91 03/28/20 08:37 102 34 60 03/28/20 08:30 111 37 99/63 (75) 90 03/28/20 08:00 97.5 112 24 97/66 (76) 90 03/28/20 08:00 97/66 03/28/20 08:00 60 03/28/20 08:00 Mechanical Ventilator 03/28/20 07:30 99 33 88/57 (67) 92 03/28/20 07:14 109 30 60 03/28/20 07:13 109 03/28/20 07:00 92/49 03/28/20 07:00 109 34 93/67 (76) 94 03/28/20 06:30 110 34 91/66 (74) 96 03/28/20 06:00 99/49 03/28/20 06:00 98 33 89/67 (74) 95 03/28/20 05:31 107 32 60 03/28/20 05:30 109 32 99/68 (78) 95 03/28/20 05:00 100/60 03/28/20 05:00 108 31 95/67 (76) 97 03/28/20 04:30 108 33 93/55 (68) 96 03/28/20 04:00 Mechanical Ventilator 03/28/20 04:00 96/60 03/28/20 04:00 60 03/28/20 04:00 106 03/28/20 04:00 98.2 108 36 96/60 (72) 95 03/28/20 03:34 110 32 60 03/28/20 03:30 108 33 92/60 (71) 98 03/28/20 03:00 110 36 94/51 (65) 94 03/28/20 02:55 90/58 03/28/20 02:30 112 32 101/56 (71) 95 03/28/20 02:00 114 32 97/71 (80) 96 03/28/20 02:00 101/56 03/28/20 01:58 114 37 60 03/28/20 01:30 113 25 81/61 (68) 90 03/28/20 01:00 81/61 03/28/20 01:00 89 30 90/58 (69) 98 03/28/20 00:30 99 36 91/62 (72) 95 03/28/20 00:00 100 03/28/20 00:00 91 03/28/20 00:00 Mechanical Ventilator 03/28/20 00:00 93/66 03/28/20 00:00 60 03/28/20 00:00 98.4 111 34 93/66 (75) 100 03/27/20 23:48 111 37 60 03/27/20 23:30 113 30 104/61 (75) 79 03/27/20 23:00 73/50 03/27/20 23:00 115 34 94/62 (73) 91 03/27/20 22:30 82 27 90/56 (67) 97 03/27/20 22:00 87 27 88/55 (66) 99 03/27/20 22:00 87/54 03/27/20 21:57 94 27 60 03/27/20 21:30 83 28 85/56 (66) 100 03/27/20 21:00 104 35 88/61 (70) 93 03/27/20 21:00 86/55 03/27/20 20:30 87 25 106/92 (97) 94 03/27/20 20:00 89/59 03/27/20 20:00 98.4 88 28 94/57 (69) 98 03/27/20 20:00 Mechanical Ventilator 03/27/20 20:00 95 03/27/20 19:30 88 27 88/56 (67) 98 03/27/20 19:27 89 24 60 03/27/20 19:00 87/52 03/27/20 19:00 90 32 87/52 (64) 100 03/27/20 18:30 111 33 81/60 (67) 98 03/27/20 18:00 98/88 03/27/20 18:00 114 35 94/69 (77) 91 03/27/20 17:15 95/64 03/27/20 17:10 95/64 03/27/20 17:08 95/64 03/27/20 17:07 116 31 95/64 (74) 89 03/27/20 17:00 108 34 60 03/27/20 16:30 76 29 98/59 (72) 100 03/27/20 16:00 91 03/27/20 16:00 99.4 91 31 93/55 (68) 99 03/27/20 16:00 Mechanical Ventilator 03/27/20 16:00 60 03/27/20 15:30 87 31 92/54 (67) 100 03/27/20 15:00 126 32 97/63 (74) 100 03/27/20 14:50 128 38 60 03/27/20 14:30 95 32 100/60 (73) 100 03/27/20 14:28 92/53 03/27/20 14:00 85 24 88/59 (69) 100 03/27/20 13:30 92 21 94/50 (65) 100 03/27/20 13:00 87 26 96/54 (68) 100 03/27/20 13:00 85 24 60 03/27/20 12:45 90 28 90/49 (63) 100 03/27/20 12:16 98/63 03/27/20 12:16 98/63 03/27/20 12:00 Mechanical Ventilator 03/27/20 12:00 60 03/27/20 12:00 98.7 93 28 84/47 (59) 100 03/27/20 12:00 93 03/27/20 11:30 91 29 89/51 (64) 100 Intake and Output 03/27/20 03/28/20 19:00 07:00 Intake Total 3074.28 ml 2178.75 ml Output Total 110 ml 210 ml Balance 2964.28 ml 1968.75 ml IV Total 2854.28 ml 2178.75 ml Other 220 ml Output Urine Total 110 ml 110 ml Stool Total 100 ml # Bowel Movements 2 3 Laboratory Tests 03/27/20 14:30: Lactic Acid Level 6.10H 03/27/20 20:00: Lactic Acid Level 9.20H 03/27/20 22:30: Lactic Acid Level 9.30H 03/28/20 03:40: Lactic Acid Level 11.70H, White Blood Count 53.9*H, Red Blood Count 2.29L, Hemoglobin 6.7*L, Hematocrit 22.2L, Mean Corpuscular Volume 97, Mean Corpuscular Hemoglobin 29.1, Mean Corpuscular Hemoglobin Concent 30.0L, Red Cell Distribution Width 18.6H, Platelet Count 37L, Mean Platelet Volume 11.2H, Ne utrophils (%) (Auto) , Lymphocytes (%) (Auto) , Monocytes (%) (Auto) , Eosinophils (%) (Auto) , Basophils (%) (Auto) , Differential Total Cells Counted 100, Neutrophils % (Manual) 80H, Lymphocytes % (Manual) 3L, Monocytes % (Manual) 4, Eosinophils % (Manual) 1, Basophils % (Manual) 0, Band Neutrophils 12H, Nucleated Red Blood Cells 1, Platelet Estimate DecreasedL, Platelet Morphology , Giant Platelets Occasional, Polychromasia 1+, Hypochromasia 1+, Anisocytosis 2+, Macrocytosis 1+, Prothrombin Time 22.2H, Prothromb Time International Ratio 2.1H , Sodium Level 147H, Potassium Level 2.8L, Chloride Level 111H, Carbon Dioxide Level 14L, Anion Gap 21H, Blood Urea Nitrogen 34H, Creatinine 2.4H, Estimat Glomerular Filtration Rate 21.3, Glucose Level 169H, Calcium Level 7.3L, Magnesium Level 3.5H, Total Bilirubin 9.6H, Direct Bilirubin 8.0H, Aspartate Amino Transf (AST/SGOT) 296H, Alanine Aminotransferase (ALT/SGPT) 105H, Alkaline Phosphatase 216H, Ammonia 107H, Total Creatine Kinase 924H, Total Protein 5.2L, Albumin 1.9L, Globulin 3.3, Albumin/Globulin Ratio 0.6L, Random Vancomycin Level 18.1 Height (Feet): 4 Height (Inches): 11.00 Weight (Pounds): 105 Objective cathexic woman with distended abdomen NCAT, (+) ETT, (+) OGT, (+) Jaundiced coarse BS RR abd distended, not tense no edema Neuro Opens eyes to name, does not follow commands Assessment/Plan Assessment/Plan: Assessment - EtOH cirrhosis (negative hepatitis serologies) - EtOH Hepatitis - not candidate for steroids due to sepsis - Ascites - negative paracentesis for SBP - UTI - shock - shocked liver - lactic acidosis - worsening coagulopathy - PNA and hypoxia - dyspnea and respiratory failure - azotemia, pre-renal vs HRS - jaundice - Moribund Recommendations - Vent and ICU care - Pressors - abx - Trental - lactulose / xifaxan - d/c aldactone - change H2B to PPI, given declining platelets - vitamin K - follow labs Nadine Childers MD Mar 28, 2020 11:09
--- NOTE | 2020-03-28 12:11 | Pulmonology Progress Note ---
Subjective ROS Limited/Unobtainable: Yes Interval Events: Remains intubated; abdomen distended Constitutional: Denies: fever HEENT: Repors: no symptoms Respiratory: Reports: no symptoms Cardiovascular: Reports: no symptoms Gastrointestinal/Abdominal: Reports: no symptoms Allergies: Coded Allergies: No Known Allergies (Unverified , 03/20/20) Objective Last 24 Hour Vital Signs Date Time Temp Pulse Resp B/P (MAP) Pulse Ox O2 Delivery O2 Flow Rate FiO2 03/28/20 12:02 110 40 98/42 (60) 03/28/20 12:00 Mechanical Ventilator 03/28/20 11:45 93/64 03/28/20 11:31 111 03/28/20 11:30 86 24 91/55 (67) 89 03/28/20 11:25 100 03/28/20 11:03 107 43 60 03/28/20 11:00 110 40 98/42 (60) 03/28/20 11:00 98/42 03/28/20 10:00 112 40 100/69 (79) 90 03/28/20 10:00 100/69 03/28/20 09:30 97 36 94/62 (73) 90 03/28/20 09:00 93/60 03/28/20 09:00 93/60 03/28/20 09:00 90 29 93/60 (71) 91 03/28/20 08:37 102 34 60 03/28/20 08:30 111 37 99/63 (75) 90 03/28/20 08:00 97.5 112 24 97/66 (76) 90 03/28/20 08:00 97/66 03/28/20 08:00 60 03/28/20 08:00 Mechanical Ventilator 03/28/20 07:30 99 33 88/57 (67) 92 03/28/20 07:14 109 30 60 03/28/20 07:13 109 03/28/20 07:00 92/49 03/28/20 07:00 109 34 93/67 (76) 94 03/28/20 06:30 110 34 91/66 (74) 96 03/28/20 06:00 99/49 03/28/20 06:00 98 33 89/67 (74) 95 03/28/20 05:31 107 32 60 03/28/20 05:30 109 32 99/68 (78) 95 03/28/20 05:00 100/60 03/28/20 05:00 108 31 95/67 (76) 97 03/28/20 04:30 108 33 93/55 (68) 96 03/28/20 04:00 Mechanical Ventilator 03/28/20 04:00 96/60 03/28/20 04:00 60 03/28/20 04:00 106 03/28/20 04:00 98.2 108 36 96/60 (72) 95 03/28/20 03:34 110 32 60 03/28/20 03:30 108 33 92/60 (71) 98 03/28/20 03:00 110 36 94/51 (65) 94 03/28/20 02:55 90/58 03/28/20 02:30 112 32 101/56 (71) 95 03/28/20 02:00 114 32 97/71 (80) 96 03/28/20 02:00 101/56 03/28/20 01:58 114 37 60 03/28/20 01:30 113 25 81/61 (68) 90 03/28/20 01:00 81/61 03/28/20 01:00 89 30 90/58 (69) 98 03/28/20 00:30 99 36 91/62 (72) 95 03/28/20 00:00 100 03/28/20 00:00 91 03/28/20 00:00 Mechanical Ventilator 03/28/20 00:00 93/66 03/28/20 00:00 60 03/28/20 00:00 98.4 111 34 93/66 (75) 100 03/27/20 23:48 111 37 60 03/27/20 23:30 113 30 104/61 (75) 79 03/27/20 23:00 73/50 03/27/20 23:00 115 34 94/62 (73) 91 03/27/20 22:30 82 27 90/56 (67) 97 03/27/20 22:00 87 27 88/55 (66) 99 03/27/20 22:00 87/54 03/27/20 21:57 94 27 60 03/27/20 21:30 83 28 85/56 (66) 100 03/27/20 21:00 104 35 88/61 (70) 93 03/27/20 21:00 86/55 03/27/20 20:30 87 25 106/92 (97) 94 03/27/20 20:00 89/59 03/27/20 20:00 98.4 88 28 94/57 (69) 98 03/27/20 20:00 Mechanical Ventilator 03/27/20 20:00 95 03/27/20 19:30 88 27 88/56 (67) 98 03/27/20 19:27 89 24 60 03/27/20 19:00 87/52 03/27/20 19:00 90 32 87/52 (64) 100 03/27/20 18:30 111 33 81/60 (67) 98 03/27/20 18:00 98/88 03/27/20 18:00 114 35 94/69 (77) 91 03/27/20 17:15 95/64 03/27/20 17:10 95/64 03/27/20 17:08 95/64 03/27/20 17:07 116 31 95/64 (74) 89 03/27/20 17:00 108 34 60 03/27/20 16:30 76 29 98/59 (72) 100 03/27/20 16:00 91 03/27/20 16:00 99.4 91 31 93/55 (68) 99 03/27/20 16:00 Mechanical Ventilator 03/27/20 16:00 60 03/27/20 15:30 87 31 92/54 (67) 100 03/27/20 15:00 126 32 97/63 (74) 100 03/27/20 14:50 128 38 60 03/27/20 14:30 95 32 100/60 (73) 100 03/27/20 14:28 92/53 03/27/20 14:00 85 24 88/59 (69) 100 03/27/20 13:30 92 21 94/50 (65) 100 03/27/20 13:00 87 26 96/54 (68) 100 03/27/20 13:00 85 24 60 03/27/20 12:45 90 28 90/49 (63) 100 03/27/20 12:16 98/63 03/27/20 12:16 98/63 Intake and Output 03/27/20 03/28/20 19:00 07:00 Intake Total 3074.28 ml 2178.75 ml Output Total 110 ml 210 ml Balance 2964.28 ml 1968.75 ml IV Total 2854.28 ml 2178.75 ml Other 220 ml Output Urine Total 110 ml 110 ml Stool Total 100 ml # Bowel Movements 2 3 General Appearance: no acute distress HEENT: normocephalic Respiratory: decreased breath sounds Cardiovascular: normal peripheral pulses, normal rate Abdomen: distended Laboratory Tests 03/27/20 14:30: Lactic Acid Level 6.10H 03/27/20 20:00: Lactic Acid Level 9.20H 03/27/20 22:30: Lactic Acid Level 9.30H 03/28/20 03:40: Lactic Acid Level 11.70H, White Blood Count 53.9*H, Red Blood Count 2.29L, Hemoglobin 6.7*L, Hematocrit 22.2L, Mean Corpuscular Volume 97, Mean Corpuscular Hemoglobin 29.1, Mean Corpuscular Hemoglobin Concent 30.0L, Red Cell Distribution Width 18.6H, Platelet Count 37L, Mean Platelet Volume 11.2H, Neutrophils (%) (Auto) , Lymphocytes (%) (Auto) , Monocytes (%) (Auto) , Eosinophils (%) (Auto) , Basophils (%) (Auto) , Differential Total Cells Counted 100, Neutrophils % (Manual) 80H, Lymphocytes % (Manual) 3L, Monocytes % (Manual) 4, Eosinophils % (Manual) 1, Basophils % (Manual) 0, Band Neutrophils 12H, Nucleated Red Blood Cells 1, Platelet Estimate DecreasedL, Platelet Morphology , Giant Platelets Occasional, Polychromasia 1+, Hypochromasia 1+, Anisocytosis 2+, Macrocytosis 1+, Prothrombin Time 22.2H, Prothromb Time International Ratio 2.1H , Sodium Level 147H, Potassium Level 2.8L, Chloride Level 111H, Carbon Dioxide Level 14L, Anion Gap 21H, Blood Urea Nitrogen 34H, Creatinine 2.4H, Estimat Glomerular Filtration Rate 21.3, Glucose Level 169H, Calcium Level 7.3L, Magnesium Level 3.5H, Total Bilirubin 9.6H, Direct Bilirubin 8.0H, Aspartate Amino Transf (AST/SGOT) 296H, Alanine Aminotransferase (ALT/SGPT) 105H, Alkaline Phosphatase 216H, Ammonia 107H, Total Creatine Kinase 924H, Total Protein 5.2L, Albumin 1.9L, Globulin 3.3, Albumin/Globulin Ratio 0.6L, Random Vancomycin Level 18.1 03/28/20 11:12: Arterial Blood pH 7.308L, Arterial Blood Partial Pressure CO2 29.6L, Arterial Blood Partial Pressure O2 44.3*L, Arterial Blood HCO3 14.5*L, Arterial Blood Oxygen Saturation 70.9*L, Arterial Blood Base Excess -10.7*L, Shaun Test Positi ve Current Medications Medications (Trade) Dose Ordered Sig/Joanna Route PRN Reason Start Time Stop Time Status Last Admin Dose Admin Amylase/Lipase/ Protease (Hallie TAYLOR 36,000 units cap) 1 ea WITH SNACKS PRN ORAL give with snacks 03/21/20 09:30 06/19/20 09:29 03/22/20 12:10 Chlorhexidine Gluconate (Roxanne-Hex 2%) 1 applic DAILY@2000 TOPIC 03/27/20 20:00 06/25/20 19:59 03/27/20 20:26 Dextrose (Dextrose 50%) 25 ml Q30M PRN IV Hypoglycemia 03/20/20 20:45 06/18/20 20:44 Dextrose (Dextrose 50%) 50 ml Q30M PRN IV Hypoglycemia 03/20/20 20:45 06/18/20 20:44 03/26/20 20:51 Famotidine (Pepcid) 20 mg BID ORAL 03/20/20 21:35 06/18/20 21:34 03/28/20 09:23 Folic Acid 1 mg/ Magnesium Sulfate 2000 mg/ Multivitamins 10 ml/Sodium Chloride 1,014.2 ml @ 125 mls/ hr Q24H IV 03/21/20 12:00 04/20/20 11:59 03/27/20 12:15 Lactulose (Cephulac) 30 gm EVERY 8 HOURS ORAL 03/25/20 14:00 04/24/20 13:59 03/28/20 06:00 Magnesium Hydroxide (Mom) 30 ml HSPRN PRN ORAL Constipation 03/20/20 20:45 04/19/20 20:44 Midodrine (Pro-Amatine) 5 mg EVERY 8 HOURS NG 03/28/20 14:00 06/19/20 09:59 Norepinephrine Bitartrate 16 mg/ Sodium Chloride 500 ml @ 0 mls/hr Q24H IV 03/27/20 16:30 03/30/20 16:29 03/28/20 11:45 Pentoxifylline (TRENtal) 400 mg THREE TIMES A DAY ORAL 03/23/20 22:00 06/21/20 21:59 03/27/20 17:08 Piperacillin Sod/ Tazobactam Sod 3.375 gm/Sodium Chloride 110 ml @ 27.5 mls/hr Q12HR IVPB 03/26/20 14:00 04/02/20 13:59 03/28/20 10:00 Potassium Chloride 50 meq/ Sodium Chloride 525 ml @ 105 mls/hr ONCE ONCE IVPB 03/28/20 10:00 03/28/20 14:59 03/28/20 11:08 Rifaximin (Xifaxan) 550 mg EVERY 12 HOURS ORAL 03/22/20 21:00 04/03/20 23:59 03/28/20 09:23 Sodium Bicarbonate 150 ml/Dextrose 1,150 ml @ 100 mls/hr [id number] IV 03/26/20 23:00 04/25/20 22:59 03/28/20 10:00 Spironolactone (Aldactone) 50 mg DAILY ORAL 03/22/20 09:00 04/21/20 08:59 03/28/20 09:23 Thiamine HCl 100 mg/Dextrose 56 ml @ 112 mls/hr Q24H IVPB 03/21/20 12:00 04/20/20 11:59 03/27/20 12:14 Vancomycin HCl ([facility] pharmacy to dose) 1 ea DAILY PRN MISC Per rx protocol 03/27/20 11:15 04/26/20 11:14 Assessment/Plan Assessment/Plan IMPRESSION: 1. Respiratory failure. 2. Status post Code Blue. 3. Marked leukocytosis 4. Sepsis 5. Hepatic failure. 6. Renal failure. 7. Significant metabolic acidosis. 8. Tense ascites 9. Coagulopathy 10. Shock; on pressors DISCUSSION: The patient is critically ill with respiratory failure. She also has hepatic failure and renal failure suspicious for hepatorenal syndrome. Prognosis is grave. I will follow as mission manager. Agree with broad-spectrum antibiotics. Continue pulmonary hygiene. I will continue vent as is. The patient will benefit from lactulose. Adrienne Baer,Lemuel Keenan MD Mar 28, 2020 12:11
[2020-03-28] MEDS: Thiamine 100mg IVPB (Q24H) IVPB SCH ×2 (12:25)
[2020-03-28] MEDS: Folic Acid 1 MG, Magnesium Sulfate 2,000 MG, Multivitamin - 12 Injection 10 ML in Sodiu... IV SCH (12:33)
--- NOTE | 2020-03-28 12:59 | Infectious Diseases Prog Note ---
Assessment/Plan Assessment/Plan IMPRESSION: 1. UTI with E. coli. 2. Leukomoid reaction 3. 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 4. COPD. 5. Anemia. 6. Thrombocytopenia. 7. Hypokalemia. 8. Likely alcoholic hepatitis. 9. Cachexia. 10. Pneumonia/ atelectasis 11. cardiopulmonary arrest 12. renal failure 13. Lactic acidosis RECOMMENDATION: Continue Zosyn & Vancomycin Sputum culture Will f/u cultures Prognosis seems to be poor. Subjective ROS Limited/Unobtainable: Yes Cardiovascular: Reports: other - on Levophed Gastrointestinal/Abdominal: Reports: diarrhea Allergies: Coded Allergies: No Known Allergies (Unverified , 03/20/20) Objective Last 24 Hour Vital Signs Date Time Temp Pulse Resp B/P (MAP) Pulse Ox O2 Delivery O2 Flow Rate FiO2 03/28/20 12:02 110 40 98/42 (60) 03/28/20 12:00 Mechanical Ventilator 03/28/20 11:45 93/64 03/28/20 11:31 111 03/28/20 11:30 86 24 91/55 (67) 89 03/28/20 11:25 100 03/28/20 11:03 107 43 60 03/28/20 11:00 110 40 98/42 (60) 03/28/20 11:00 98/42 03/28/20 10:00 112 40 100/69 (79) 90 03/28/20 10:00 100/69 03/28/20 09:30 97 36 94/62 (73) 90 03/28/20 09:00 93/60 03/28/20 09:00 93/60 03/28/20 09:00 90 29 93/60 (71) 91 03/28/20 08:37 102 34 60 03/28/20 08:30 111 37 99/63 (75) 90 03/28/20 08:00 97.5 112 24 97/66 (76) 90 03/28/20 08:00 97/66 03/28/20 08:00 60 03/28/20 08:00 Mechanical Ventilator 03/28/20 07:30 99 33 88/57 (67) 92 03/28/20 07:14 109 30 60 03/28/20 07:13 109 03/28/20 07:00 92/49 03/28/20 07:00 109 34 93/67 (76) 94 03/28/20 06:30 110 34 91/66 (74) 96 03/28/20 06:00 99/49 03/28/20 06:00 98 33 89/67 (74) 95 03/28/20 05:31 107 32 60 03/28/20 05:30 109 32 99/68 (78) 95 03/28/20 05:00 100/60 03/28/20 05:00 108 31 95/67 (76) 97 03/28/20 04:30 108 33 93/55 (68) 96 03/28/20 04:00 Mechanical Ventilator 03/28/20 04:00 96/60 03/28/20 04:00 60 03/28/20 04:00 106 03/28/20 04:00 98.2 108 36 96/60 (72) 95 03/28/20 03:34 110 32 60 03/28/20 03:30 108 33 92/60 (71) 98 03/28/20 03:00 110 36 94/51 (65) 94 03/28/20 02:55 90/58 03/28/20 02:30 112 32 101/56 (71) 95 03/28/20 02:00 114 32 97/71 (80) 96 03/28/20 02:00 101/56 03/28/20 01:58 114 37 60 03/28/20 01:30 113 25 81/61 (68) 90 03/28/20 01:00 81/61 03/28/20 01:00 89 30 90/58 (69) 98 03/28/20 00:30 99 36 91/62 (72) 95 03/28/20 00:00 100 03/28/20 00:00 91 03/28/20 00:00 Mechanical Ventilator 03/28/20 00:00 93/66 03/28/20 00:00 60 03/28/20 00:00 98.4 111 34 93/66 (75) 100 03/27/20 23:48 111 37 60 03/27/20 23:30 113 30 104/61 (75) 79 03/27/20 23:00 73/50 03/27/20 23:00 115 34 94/62 (73) 91 03/27/20 22:30 82 27 90/56 (67) 97 03/27/20 22:00 87 27 88/55 (66) 99 03/27/20 22:00 87/54 03/27/20 21:57 94 27 60 03/27/20 21:30 83 28 85/56 (66) 100 03/27/20 21:00 104 35 88/61 (70) 93 03/27/20 21:00 86/55 03/27/20 20:30 87 25 106/92 (97) 94 03/27/20 20:00 89/59 03/27/20 20:00 98.4 88 28 94/57 (69) 98 03/27/20 20:00 Mechanical Ventilator 03/27/20 20:00 95 03/27/20 19:30 88 27 88/56 (67) 98 03/27/20 19:27 89 24 60 03/27/20 19:00 87/52 03/27/20 19:00 90 32 87/52 (64) 100 03/27/20 18:30 111 33 81/60 (67) 98 03/27/20 18:00 98/88 03/27/20 18:00 114 35 94/69 (77) 91 03/27/20 17:15 95/64 03/27/20 17:10 95/64 03/27/20 17:08 95/64 03/27/20 17:07 116 31 95/64 (74) 89 03/27/20 17:00 108 34 60 03/27/20 16:30 76 29 98/59 (72) 100 03/27/20 16:00 91 03/27/20 16:00 99.4 91 31 93/55 (68) 99 03/27/20 16:00 Mechanical Ventilator 03/27/20 16:00 60 03/27/20 15:30 87 31 92/54 (67) 100 03/27/20 15:00 126 32 97/63 (74) 100 03/27/20 14:50 128 38 60 03/27/20 14:30 95 32 100/60 (73) 100 03/27/20 14:28 92/53 03/27/20 14:00 85 24 88/59 (69) 100 03/27/20 13:30 92 21 94/50 (65) 100 03/27/20 13:00 87 26 96/54 (68) 100 03/27/20 13:00 85 24 60 Height (Feet): 4 Height (Inches): 11.00 Weight (Pounds): 105 HEENT: other - orally intubated, icterus Respiratory/Chest: lungs clear, other - on ventilator Cardiovascular: tachycardia Abdomen: distended, other - Orogastric & rectal tubes Extremities: other - generalized edema Neurologic/Psychiatric: other - sedated Laboratory Tests Test 03/27/20 14:30 03/27/20 20:00 03/27/20 22:30 03/28/20 03:40 Lactic Acid Level 6.10 mmol/L (0.4-2.0) H 9.20 mmol/L (0.66-2.22) H 9.30 mmol/L (0.4-2.0) H 11.70 mmol/L (0.66-2.22) H White Blood Count 53.9 K/UL (4.8-10.8) *H Red Blood Count 2.29 M/UL (4.20-5.40) L Hemoglobin 6.7 G/DL (12.0-16.0) *L Hematocrit 22.2 % (37.0-47.0) L Mean Corpuscular Volume 97 FL (80-99) Mean Corpuscular Hemoglobin 29.1 PG (27.0-31.0) Mean Corpuscular Hemoglobin Concent 30.0 G/DL (32.0-36.0) L Red Cell Distribution Width 18.6 % (11.6-14.8) H Platelet Count 37 K/UL (150-450) L Mean Platelet Volume 11.2 FL (6.5-10.1) H Neutrophils (%) (Auto) % (45.0-75.0) Lymphocytes (%) (Auto) % (20.0-45.0) Monocytes (%) (Auto) % (1.0-10.0) Eosinophils (%) (Auto) % (0.0-3.0) Basophils (%) (Auto) % (0.0-2.0) Differential Total Cells Counted 100 Neutrophils % (Manual) 80 % (45-75) H Lymphocytes % (Manual) 3 % (20-45) L Monocytes % (Manual) 4 % (1-10) Eosinophils % (Manual) 1 % (0-3) Basophils % (Manual) 0 % (0-2) Band Neutrophils 12 % (0-8) H Nucleated Red Blood Cells 1 /100 WBC Platelet Estimate Decreased L Platelet Morphology Giant Platelets Occasional Polychromasia 1+ Hypochromasia 1+ Anisocytosis 2+ Macrocytosis 1+ Prothrombin Time 22.2 SEC (9.30-11.50) H Prothromb Time International Ratio 2.1 (0.9-1.1) H Sodium Level 147 MMOL/L (136-145) H Potassium Level 2.8 MMOL/L (3.5-5.1) L Chloride Level 111 MMOL/L (98-107) H Carbon Dioxide Level 14 MMOL/L (21-32) L Anion Gap 21 mmol/L (5-15) H Blood Urea Nitrogen 34 mg/dL (7-18) H Creatinine 2.4 MG/DL (0.55-1.30) H Estimat Glomerular Filtration Rate 21.3 mL/min (>60) Glucose Level 169 MG/DL (74-106) H Calcium Level 7.3 MG/DL (8.5-10.1) L Magnesium Level 3.5 MG/DL (1.8-2.4) H Total Bilirubin 9.6 MG/DL (0.2-1.0) H Direct Bilirubin 8.0 MG/DL (0.0-0.3) H Aspartate Amino Transf (AST/SGOT) 296 U/L (15-37) H Alanine Aminotransferase (ALT/SGPT) 105 U/L (12-78) H Alkaline Phosphatase 216 U/L (46-116) H Ammonia 107 umol/L (11-32) H Total Creatine Kinase 924 U/L (26-308) H Total Protein 5.2 G/DL (6.4-8.2) L Albumin 1.9 G/DL (3.4-5.0) L Globulin 3.3 g/dL Albumin/Globulin Ratio 0.6 (1.0-2.7) L Random Vancomycin Level 18.1 ug/mL Test 03/28/20 11:12 Arterial Blood pH 7.308 (7.350-7.450) Arterial Blood Partial Pressure CO2 29.6 mmHg (35.0-45.0) L Arterial Blood Partial Pressure O2 44.3 mmHg (75.0-100.0) Arterial Blood HCO3 14.5 mmol/L (22.0-26.0) *L Arterial Blood Oxygen Saturation 70.9 % (95-100) *L Arterial Blood Base Excess -10.7 (-2-2) *L Shaun Test Positive Current Medications Medications (Trade) Dose Ordered Sig/Joanna Route PRN Reason Start Time Stop Time Status Last Admin Dose Admin Amylase/Lipase/ Protease (Hallie TAYLOR 36,000 units cap) 1 ea WITH SNACKS PRN ORAL give with snacks 03/21/20 09:30 06/19/20 09:29 03/22/20 12:10 Chlorhexidine Gluconate (Roxanne-Hex 2%) 1 applic DAILY@2000 TOPIC 03/27/20 20:00 06/25/20 19:59 03/27/20 20:26 Dextrose (Dextrose 50%) 25 ml Q30M PRN IV Hypoglycemia 03/20/20 20:45 06/18/20 20:44 Dextrose (Dextrose 50%) 50 ml Q30M PRN IV Hypoglycemia 03/20/20 20:45 06/18/20 20:44 03/26/20 20:51 Famotidine (Pepcid) 20 mg BID ORAL 03/20/20 21:35 06/18/20 21:34 03/28/20 09:23 Folic Acid 1 mg/ Magnesium Sulfate 2000 mg/ Multivitamins 10 ml/Sodium Chloride 1,014.2 ml @ 125 mls/ hr Q24H IV 03/21/20 12:00 04/20/20 11:59 03/28/20 12:33 Lactulose (Cephulac) 30 gm EVERY 8 HOURS ORAL 03/25/20 14:00 04/24/20 13:59 03/28/20 06:00 Magnesium Hydroxide (Mom) 30 ml HSPRN PRN ORAL Constipation 03/20/20 20:45 04/19/20 20:44 Midodrine (Pro-Amatine) 5 mg EVERY 8 HOURS NG 03/28/20 14:00 06/19/20 09:59 Norepinephrine Bitartrate 16 mg/ Sodium Chloride 500 ml @ 0 mls/hr Q24H IV 03/27/20 16:30 03/30/20 16:29 03/28/20 11:45 Pentoxifylline (TRENtal) 400 mg THREE TIMES A DAY ORAL 03/23/20 22:00 06/21/20 21:59 03/27/20 17:08 Piperacillin Sod/ Tazobactam Sod 3.375 gm/Sodium Chloride 110 ml @ 27.5 mls/hr Q12HR IVPB 03/26/20 14:00 04/02/20 13:59 03/28/20 10:00 Potassium Chloride 50 meq/ Sodium Chloride 525 ml @ 105 mls/hr ONCE ONCE IVPB 03/28/20 10:00 03/28/20 14:59 03/28/20 11:08 Rifaximin (Xifaxan) 550 mg EVERY 12 HOURS ORAL 03/22/20 21:00 04/03/20 23:59 03/28/20 09:23 Sodium Bicarbonate 150 ml/Dextrose 1,150 ml @ 100 mls/hr [id number] IV 03/26/20 23:00 04/25/20 22:59 03/28/20 10:00 Spironolactone (Aldactone) 50 mg DAILY ORAL 03/22/20 09:00 04/21/20 08:59 03/28/20 09:23 Thiamine HCl 100 mg/Dextrose 56 ml @ 112 mls/hr Q24H IVPB 03/21/20 12:00 04/20/20 11:59 03/28/20 12:25 [facility] DA[facility] PRN MISC Per rx protocol 03/27/20 11:15 04/26/20 11:14 Thom Diaz MD Mar 28, 2020 12:58
[2020-03-28] MEDS ORDERED: Tubing IV Secondary IV ONE (15:34)
--- NOTE | 2020-03-28 16:33 | Cardiology Progress Note ---
Assessment/Plan Assessment/Plan 1. Cardiopulmonary arrest, status post 19 minutes of advanced and basic cardiac life support. 2. Hypotension / septic shock 3. Leukocytosis, leukemoid reaction. 4. Coagulopathy. 5. Thrombocytopenia. 6. Cirrhosis. 7. Perihilar infiltrate. 8. Possible chronic pancreatitis with calcification on CT. 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 10. Gas and fluid collection adjacent to the vaginal wall. 11. Lactic acidosis. 12. Hepatic encephalopathy 13. metabolic acidosis 14. LV systolic dysfunction 15. coagulopathy 16. thrombocytopenia diarrhea on lactulose is anemia awiat prbc tx iv abdx empiric vent support pressor to main tain map greater thatn 60 i was called regarding hypotension despite max dose of iv levophed so zina ordered as needed tele reviewed sinus echo noted ef 40% with swma lft abn but on down tredn metabolic acidosis noted is more hypoxemic today requring max dose of oxygen mentation worse prognois is guarded pt remain critical and at risk of dying continue supportive measures d/w rn etiology of gas noted in the pelvis on ct?? plt are low may need plt transfusion cortisol level in am cxr personally reviewed Subjective ROS Limited/Unobtainable: Yes Objective Last 24 Hour Vital Signs Date Time Temp Pulse Resp B/P (MAP) Pulse Ox O2 Delivery O2 Flow Rate FiO2 03/28/20 16:06 105 25 104/65 (78) 98 03/28/20 16:03 112 03/28/20 15:08 116 43 100 03/28/20 15:00 97.5 101 33 90/60 (70) 100 03/28/20 14:00 113 31 104/80 (88) 90 03/28/20 13:04 93 29 100 03/28/20 13:00 98 38 97/59 (72) 100 03/28/20 13:00 97/59 03/28/20 13:00 97/59 03/28/20 12:02 110 40 98/42 (60) 03/28/20 12:00 98/42 03/28/20 12:00 Mechanical Ventilator 03/28/20 11:45 93/64 03/28/20 11:31 111 03/28/20 11:30 86 24 91/55 (67) 89 03/28/20 11:25 100 03/28/20 11:03 107 43 60 03/28/20 11:00 110 40 98/42 (60) 03/28/20 11:00 98/42 03/28/20 10:00 112 40 100/69 (79) 90 03/28/20 10:00 100/69 03/28/20 09:30 97 36 94/62 (73) 90 03/28/20 09:00 93/60 03/28/20 09:00 93/60 03/28/20 09:00 90 29 93/60 (71) 91 03/28/20 08:37 102 34 60 03/28/20 08:30 111 37 99/63 (75) 90 03/28/20 08:00 97.5 112 24 97/66 (76) 90 03/28/20 08:00 97/66 03/28/20 08:00 60 03/28/20 08:00 Mechanical Ventilator 03/28/20 07:30 99 33 88/57 (67) 92 03/28/20 07:14 109 30 60 03/28/20 07:13 109 03/28/20 07:00 92/49 03/28/20 07:00 109 34 93/67 (76) 94 03/28/20 06:30 110 34 91/66 (74) 96 03/28/20 06:00 99/49 03/28/20 06:00 98 33 89/67 (74) 95 03/28/20 05:31 107 32 60 03/28/20 05:30 109 32 99/68 (78) 95 03/28/20 05:00 100/60 03/28/20 05:00 108 31 95/67 (76) 97 03/28/20 04:30 108 33 93/55 (68) 96 03/28/20 04:00 Mechanical Ventilator 03/28/20 04:00 96/60 03/28/20 04:00 60 03/28/20 04:00 106 03/28/20 04:00 98.2 108 36 96/60 (72) 95 03/28/20 03:34 110 32 60 03/28/20 03:30 108 33 92/60 (71) 98 03/28/20 03:00 110 36 94/51 (65) 94 03/28/20 02:55 90/58 03/28/20 02:30 112 32 101/56 (71) 95 03/28/20 02:00 114 32 97/71 (80) 96 03/28/20 02:00 101/56 03/28/20 01:58 114 37 60 03/28/20 01:30 113 25 81/61 (68) 90 03/28/20 01:00 81/61 03/28/20 01:00 89 30 90/58 (69) 98 03/28/20 00:30 99 36 91/62 (72) 95 03/28/20 00:00 100 03/28/20 00:00 91 03/28/20 00:00 Mechanical Ventilator 03/28/20 00:00 93/66 03/28/20 00:00 60 03/28/20 00:00 98.4 111 34 93/66 (75) 100 03/27/20 23:48 111 37 60 03/27/20 23:30 113 30 104/61 (75) 79 03/27/20 23:00 73/50 03/27/20 23:00 115 34 94/62 (73) 91 03/27/20 22:30 82 27 90/56 (67) 97 03/27/20 22:00 87 27 88/55 (66) 99 03/27/20 22:00 87/54 03/27/20 21:57 94 27 60 03/27/20 21:30 83 28 85/56 (66) 100 03/27/20 21:00 104 35 88/61 (70) 93 03/27/20 21:00 86/55 03/27/20 20:30 87 25 106/92 (97) 94 03/27/20 20:00 89/59 03/27/20 20:00 98.4 88 28 94/57 (69) 98 03/27/20 20:00 Mechanical Ventilator 03/27/20 20:00 95 03/27/20 19:30 88 27 88/56 (67) 98 03/27/20 19:27 89 24 60 03/27/20 19:00 87/52 03/27/20 19:00 90 32 87/52 (64) 100 03/27/20 18:30 111 33 81/60 (67) 98 03/27/20 18:00 98/88 03/27/20 18:00 114 35 94/69 (77) 91 10/23/20 17:15 95/64 10/20 17:10 03/27/20 17:08 03/27/20 17:07 116 31 95/64 (74) 89 03/27/20 17:00 108 34 60 03/27/20 16:30 76 29 98/59 (72) 100 General Appearance: no apparent distress, on vent Neck: supple Cardiovascular: normal rate Respiratory/Chest: rhonchi - bilaterally Abdomen: normal bowel sounds, non tender, soft Extremities: no swelling, moderate edema Intake and Output 03/27/20 03/28/20 19:00 07:00 Intake Total 3074.28 ml 2178.75 ml Output Total 110 ml 210 ml Balance 2964.28 ml 1968.75 ml IV Total 2854.28 ml 2178.75 ml Other 220 ml Output Urine Total 110 ml 110 ml Stool Total 100 ml # Bowel Movements 2 3 Laboratory Tests Test 03/27/20 20:00 03/27/20 22:30 03/28/20 03:40 03/28/20 11:12 Lactic Acid Level 9.20 mmol/L (0.66-2.22) H 9.30 mmol/L (0.4-2.0) H 11.70 mmol/L (0.66-2.22) H White Blood Count 53.9 K/UL (4.8-10.8) *H Red Blood Count 2.29 M/UL (4.20-5.40) L Hemoglobin 6.7 G/DL (12.0-16.0) *L Hematocrit 22.2 % (37.0-47.0) L Mean Corpuscular Volume 97 FL (80-99) Mean Corpuscular Hemoglobin 29.1 PG (27.0-31.0) Mean Corpuscular Hemoglobin Concent 30.0 G/DL (32.0-36.0) L Red Cell Distribution Width 18.6 % (11.6-14.8) H Platelet Count 37 K/UL (150-450) L Mean Platelet Volume 11.2 FL (6.5-10.1) H Neutrophils (%) (Auto) % (45.0-75.0) Lymphocytes (%) (Auto) % (20.0-45.0) Monocytes (%) (Auto) % (1.0-10.0) Eosinophils (%) (Auto) % (0.0-3.0) Basophils (%) (Auto) % (0.0-2.0) Differential Total Cells Counted 100 Neutrophils % (Manual) 80 % (45-75) H Lymphocytes % (Manual) 3 % (20-45) L Monocytes % (Manual) 4 % (1-10) Eosinophils % (Manual) 1 % (0-3) Basophils % (Manual) 0 % (0-2) Band Neutrophils 12 % (0-8) H Nucleated Red Blood Cells 1 /100 WBC Platelet Estimate Decreased L Platelet Morphology Giant Platelets Occasional Polychromasia 1+ Hypochromasia 1+ Anisocytosis 2+ Macrocytosis 1+ Prothrombin Time 22.2 SEC (9.30-11.50) H Prothromb Time International Ratio 2.1 (0.9-1.1) H Sodium Level 147 MMOL/L (136-145) H Potassium Level 2.8 MMOL/L (3.5-5.1) L Chloride Level 111 MMOL/L (98-107) H Carbon Dioxide Level 14 MMOL/L (21-32) L Anion Gap 21 mmol/L (5-15) H Blood Urea Nitrogen 34 mg/dL (7-18) H Creatinine 2.4 MG/DL (0.55-1.30) H Estimat Glomerular Filtration Rate 21.3 mL/min (>60) Glucose Level 169 MG/DL (74-106) H Calcium Level 7.3 MG/DL (8.5-10.1) L Magnesium Level 3.5 MG/DL (1.8-2.4) H Total Bilirubin 9.6 MG/DL (0.2-1.0) H Direct Bilirubin 8.0 MG/DL (0.0-0.3) H Aspartate Amino Transf (AST/SGOT) 296 U/L (15-37) H Alanine Aminotransferase (ALT/SGPT) 105 U/L (12-78) H Alkaline Phosphatase 216 U/L (46-116) H Ammonia 107 umol/L (11-32) H Total Creatine Kinase 924 U/L (26-308) H Total Protein 5.2 G/DL (6.4-8.2) L Albumin 1.9 G/DL (3.4-5.0) L Globulin 3.3 g/dL Albumin/Globulin Ratio 0.6 (1.0-2.7) L Random Vancomycin Level 18.1 ug/mL Arterial Blood pH 7.308 (7.350-7.450) Arterial Blood Partial Pressure CO2 29.6 mmHg (35.0-45.0) L Arterial Blood Partial Pressure O2 44.3 mmHg (75.0-100.0) Arterial Blood HCO3 14.5 mmol/L (22.0-26.0) *L Arterial Blood Oxygen Saturation 70.9 % (95-100) *L Arterial Blood Base Excess -10.7 (-2-2) *L Shaun Test Positive Microbiology Date/Time Source Procedure Growth Status 03/26/20 23:30 Sputum Gram Stain - Final Resulted 03/26/20 23:30 Sputum Sputum Culture Pending Resulted Curtis Worley MD Mar 28, 2020 16:33
[2020-03-28] MEDS: Pantoprazole Inj IVP SCH (17:18)
--- NOTE | 2020-03-28 17:51 | General Progress Note ---
Subjective Allergies: Coded Allergies: No Known Allergies (Unverified , 03/20/20) Subjective doing poorly intubated Objective Last 24 Hour Vital Signs Date Time Temp Pulse Resp B/P (MAP) Pulse Ox O2 Delivery O2 Flow Rate FiO2 03/28/20 17:02 108 28 100/69 (79) 98 03/28/20 16:48 119 43 100 03/28/20 16:06 105 25 104/65 (78) 98 03/28/20 16:03 112 03/28/20 16:00 104/65 03/28/20 16:00 100 03/28/20 16:00 Mechanical Ventilator 03/28/20 15:08 116 43 100 03/28/20 15:00 97.5 101 33 90/60 (70) 100 03/28/20 15:00 90/60 03/28/20 14:00 104/80 03/28/20 14:00 113 31 104/80 (88) 90 03/28/20 13:04 93 29 100 03/28/20 13:00 98 38 97/59 (72) 100 03/28/20 13:00 97/59 03/28/20 13:00 97/59 03/28/20 12:02 110 40 98/42 (60) 03/28/20 12:00 98/42 03/28/20 12:00 Mechanical Ventilator 03/28/20 12:00 100 03/28/20 11:45 93/64 03/28/20 11:31 111 03/28/20 11:30 86 24 91/55 (67) 89 03/28/20 11:25 100 03/28/20 11:03 107 43 60 03/28/20 11:00 110 40 98/42 (60) 03/28/20 11:00 98/42 03/28/20 10:00 112 40 100/69 (79) 90 03/28/20 10:00 100/69 03/28/20 09:30 97 36 94/62 (73) 90 03/28/20 09:00 93/60 03/28/20 09:00 93/60 03/28/20 09:00 90 29 93/60 (71) 91 03/28/20 08:37 102 34 60 03/28/20 08:30 111 37 99/63 (75) 90 03/28/20 08:00 97.5 112 24 97/66 (76) 90 03/28/20 08:00 97/66 03/28/20 08:00 60 03/28/20 08:00 Mechanical Ventilator 03/28/20 07:30 99 33 88/57 (67) 92 03/28/20 07:14 109 30 60 03/28/20 07:13 109 03/28/20 07:00 92/49 03/28/20 07:00 109 34 93/67 (76) 94 03/28/20 06:30 110 34 91/66 (74) 96 03/28/20 06:00 99/49 03/28/20 06:00 98 33 89/67 (74) 95 03/28/20 05:31 107 32 60 03/28/20 05:30 109 32 99/68 (78) 95 03/28/20 05:00 100/60 03/28/20 05:00 108 31 95/67 (76) 97 03/28/20 04:30 108 33 93/55 (68) 96 03/28/20 04:00 Mechanical Ventilator 03/28/20 04:00 96/60 03/28/20 04:00 60 03/28/20 04:00 106 03/28/20 04:00 98.2 108 36 96/60 (72) 95 03/28/20 03:34 110 32 60 03/28/20 03:30 108 33 92/60 (71) 98 03/28/20 03:00 110 36 94/51 (65) 94 03/28/20 02:55 90/58 03/28/20 02:30 112 32 101/56 (71) 95 03/28/20 02:00 114 32 97/71 (80) 96 03/28/20 02:00 101/56 03/28/20 01:58 114 37 60 03/28/20 01:30 113 25 81/61 (68) 90 03/28/20 01:00 81/61 03/28/20 01:00 89 30 90/58 (69) 98 03/28/20 00:30 99 36 91/62 (72) 95 03/28/20 00:00 100 03/28/20 00:00 91 03/28/20 00:00 Mechanical Ventilator 03/28/20 00:00 93/66 03/28/20 00:00 60 03/28/20 00:00 98.4 111 34 93/66 (75) 100 03/27/20 23:48 111 37 60 03/27/20 23:30 113 30 104/61 (75) 79 03/27/20 23:00 73/50 03/27/20 23:00 115 34 94/62 (73) 91 03/27/20 22:30 82 27 90/56 (67) 97 03/27/20 22:00 87 27 88/55 (66) 99 03/27/20 22:00 87/54 03/27/20 21:57 94 27 60 03/27/20 21:30 83 28 85/56 (66) 100 03/27/20 21:00 104 35 88/61 (70) 93 03/27/20 21:00 86/55 03/27/20 20:30 87 25 106/92 (97) 94 03/27/20 20:00 89/59 03/27/20 20:00 98.4 88 28 94/57 (69) 98 03/27/20 20:00 Mechanical Ventilator 03/27/20 20:00 95 03/27/20 19:30 88 27 88/56 (67) 98 03/27/20 19:27 89 24 60 03/27/20 19:00 87/52 03/27/20 19:00 90 32 87/52 (64) 100 03/27/20 18:30 111 33 81/60 (67) 98 03/27/20 18:00 98/88 03/27/20 18:00 114 35 94/69 (77) 91 Intake and Output 03/27/20 03/28/20 19:00 07:00 Intake Total 3074.28 ml 2178.75 ml Output Total 110 ml 210 ml Balance 2964.28 ml 1968.75 ml IV Total 2854.28 ml 2178.75 ml Other 220 ml Output Urine Total 110 ml 110 ml Stool Total 100 ml # Bowel Movements 2 3 Laboratory Tests 03/27/20 20:00: Lactic Acid Level 9.20H 03/27/20 22:30: Lactic Acid Level 9.30H 03/28/20 03:40: Lactic Acid Level 11.70H, White Blood Count 53.9*H, Red Blood Count 2.29L, Hemoglobin 6.7*L, Hematocrit 22.2L, Mean Corpuscular Volume 97, Mean Corpuscular Hemoglobin 29.1, Mean Corpuscular Hemoglobin Concent 30.0L, Red Cell Distribution Width 18.6H, Platelet Count 37L, Mean Platelet Volume 11.2H, Neutrophils (%) (Auto) , Lymphocytes (%) (Auto) , Monocytes (%) (Auto) , Eosinophils (%) (Auto) , Basophils (%) (Auto) , Differential Total Cells Counted 100, Neutrophils % (Manual) 80H, Lymphocytes % (Manual) 3L, Monocytes % (Manual) 4, Eosinophils % (Manual) 1, Basophils % (Manual) 0, Band Neutrophils 12H, Nucleated Red Blood Cells 1, Platelet Estimate DecreasedL, Platelet Morphology , Giant Platelets Occasional, Polychromasia 1+, Hypochromasia 1+, Anisocytosis 2+, Macrocytosis 1+, Prothrombin Time 22.2H, Prothromb Time International Ratio 2.1H , Sodium Level 147H, Potassium Level 2.8L, Chloride Level 111H, Carbon Dioxide Level 14L, Anion Gap 21H, Blood Urea Nitrogen 34H, Creatinine 2.4H, Estimat Glomerular Filtration Rate 21.3, Glucose Level 169H, Calcium Level 7.3L, Magnesium Level 3.5H, Total Bilirubin 9.6H, Direct Bilirubin 8.0H, Aspartate Amino Transf (AST/SGOT) 296H, Alanine Aminotransferase (ALT/SGPT) 105H, Alkaline Phosphatase 216H, Ammonia 107H, Total Creatine Kinase 924H, Total Protein 5.2L, Albumin 1.9L, Globulin 3.3, Albumin/Globulin Ratio 0.6L, Random Vancomycin Level 18.1 03/28/20 11:12: Arterial Blood pH 7.308L, Arterial Blood Partial Pressure CO2 29.6L, Arterial Blood Partial Pressure O2 44.3*L, Arterial Blood HCO3 14.5*L, Arterial Blood Oxygen Saturation 70.9*L, Arterial Blood Base Excess -10.7*L, Shaun Test Positive Height (Feet): 4 Height (Inches): 11.00 Weight (Pounds): 105 Cardiovascular: normal rate Respiratory/Chest: rhonchi - bilaterally Edema: 4+ Generalized Assessment/Plan Problem List: (1) Acute renal failure Assessment & Plan: no sig change ICD Codes: N17.9 - Acute kidney failure, unspecified SNOMED: 25446560 Qualifiers: Qualified Codes: N17.9 - Acute kidney failure, unspecified (2) Cirrhosis ICD Codes: K74.60 - Unspecified cirrhosis of liver SNOMED: 38331555 Qualifiers: Qualified Codes: K70.31 - Alcoholic cirrhosis of liver with ascites (3) Anemia Assessment & Plan: worse ICD Codes: D64.9 - Anemia, unspecified SNOMED: 323159705 Qualifiers: Qualified Codes: D64.9 - Anemia, unspecified (4) Sepsis ICD Codes: A41.9 - Sepsis, unspecified organism SNOMED: 36668529 (5) Hypokalemia ICD Codes: E87.6 - Hypokalemia SNOMED: 44869316 (6) Cardiopulmonary arrest ICD Codes: I46.9 - Cardiac arrest, cause unspecified SNOMED: 728560645 (7) E. coli UTI ICD Codes: N39.0 - Urinary tract infection, site not specified; B96.20 - Unspecified Escherichia coli [E. coli] as the cause of diseases classified elsewhere SNOMED: 030280874 (8) Hypoglycemia ICD Codes: E16.2 - Hypoglycemia, unspecified SNOMED: 447821403 (9) Thrombocytopenia ICD Codes: D69.6 - Thrombocytopenia, unspecified SNOMED: 969544199 (10) ARF (acute renal failure) ICD Codes: N17.9 - Acute kidney failure, unspecified SNOMED: 66745251 Assessment/Plan: abxs keep on on pressors follow labs Pulm and cardiology F/U Discussed with RN full code per family IV D5 with bicarb transfuse Replte K total time spent 34 min Erick Diaz MD Mar 28, 2020 17:51
[2020-03-28] MEDS: Phenylephrine 100 MG in D5W 240 ML IV SCH (18:38)
[2020-03-28] MEDS: Dyna-Hex 2% Top Sol 2oz TOPIC SCH (20:20)
[2020-03-28] MEDS: Vasopressin 100 UNITS in NS 95 ML IV SCH (20:45)
[2020-03-29] VITALS (62 sets, daily range): BP systolic 36–133; BP diastolic 12–110
[2020-03-29] MEDS: Phenylephrine 100 MG in D5W 240 ML IV SCH ×4 (00:34→20:42)
[2020-03-29] MEDS: Norepinephrine Bitartrate 16 MG in Sodium Chloride 484 ML IV SCH ×3 (04:56→20:42)
[2020-03-29 05:45] LABS: HEMATOCRIT 36.4 % (37.0-47.0); HEMOGLOBIN 11.7 G/DL (12.0-16.0); MEAN CORPUSCULAR VOLUME 91 FL (80-99); PLATELET COUNT 12 K/UL (150-450); RED BLOOD COUNT 4.01 M/UL (4.20-5.40); RED CELL DISTRIBUTION WIDTH 17.6 % (11.6-14.8)
[2020-03-29 05:55] LABS: INR 1.8 (0.9-1.1)
[2020-03-29] MEDS: Lactulose 20gm/30ml UDC ORAL SCH ×3 (06:00→21:53)
[2020-03-29 06:21] LABS: ALBUMIN 1.8 G/DL (3.4-5.0); ALBUMIN/GLOBULIN RATIO 0.7 (1.0-2.7); BILIRUBIN,TOTAL 12.7 MG/DL (0.2-1.0); CALCIUM 7.3 MG/DL (8.5-10.1); CREATININE 2.4 MG/DL (0.55-1.30); POTASSIUM 3.3 MMOL/L (3.5-5.1)
[2020-03-29 06:28] LABS: BILIRUBIN,DIRECT 10.5 MG/DL (0.0-0.3)
--- NOTE | 2020-03-29 08:08 | Pulmonology Progress Note ---
Subjective ROS Limited/Unobtainable: Yes Interval Events: Remains intubated; abdomen distended; doing very poorly Constitutional: Denies: fever HEENT: Repors: no symptoms Respiratory: Reports: no symptoms Cardiovascular: Reports: no symptoms Gastrointestinal/Abdominal: Reports: diarrhea Allergies: Coded Allergies: No Known Allergies (Unverified , 03/20/20) Objective Last 24 Hour Vital Signs Date Time Temp Pulse Resp B/P (MAP) Pulse Ox O2 Delivery O2 Flow Rate FiO2 03/29/20 07:36 106 43 100 03/29/20 06:45 96 36 49/37 (41) 95 03/29/20 06:30 106 41 58/23 (35) 98 03/29/20 06:15 105 40 58/28 (38) 87 03/29/20 06:00 49/37 03/29/20 06:00 96.8 101 43 67/27 (40) 86 03/29/20 05:45 99 38 65/34 (44) 89 03/29/20 05:30 101 40 91/63 (72) 87 03/29/20 05:15 103 41 61/48 (52) 91 03/29/20 05:00 102 38 36/18 (24) 83 03/29/20 05:00 75/29 03/29/20 04:56 90/48 03/29/20 04:30 100 35 90/48 (62) 79 03/29/20 04:30 98 40 100 03/29/20 04:15 102 33 92/77 (82) 60 03/29/20 04:05 97 27 116/68 (84) 73 03/29/20 04:00 102 03/29/20 04:00 97.1 105 35 48/23 (31) 73 03/29/20 04:00 Mechanical Ventilator 03/29/20 04:00 116/68 03/29/20 04:00 100 03/29/20 03:30 96 32 91/45 (60) 80 03/29/20 03:26 99 40 77/41 (53) 86 03/29/20 03:15 99 34 85/48 (60) 98 03/29/20 03:00 100 34 69/39 (49) 79 03/29/20 03:00 85/48 03/29/20 02:37 100 40 100 03/29/20 02:00 104 25 75/46 (56) 94 03/29/20 02:00 75/46 03/29/20 01:45 103 24 83/64 (70) 92 03/29/20 01:30 103 22 64/38 (47) 82 03/29/20 01:15 104 20 66/49 (55) 90 03/29/20 01:00 83/64 03/29/20 01:00 103 21 72/52 (59) 93 03/29/20 00:45 105 20 71/13 (32) 82 03/29/20 00:43 105 21 100 03/29/20 00:34 108 65/30 03/29/20 00:30 104 20 105/76 (86) 84 03/29/20 00:15 104 20 68/49 (55) 96 03/29/20 00:00 Mechanical Ventilator 03/29/20 00:00 100 03/29/20 00:00 88/53 03/29/20 00:00 97.6 103 20 88/53 (65) 88 03/29/20 00:00 101 03/28/20 23:05 108 35 65/30 (42) 72 03/28/20 23:00 39/29 03/28/20 23:00 104 21 39/29 (32) 60 03/28/20 22:31 104 20 100 03/28/20 22:30 105 20 65/16 (32) 75 03/28/20 22:20 106 20 53/27 (36) 93 03/28/20 22:02 105 20 67/41 (50) 78 03/28/20 22:00 105 20 34/20 (25) 85 03/28/20 22:00 34/20 03/28/20 21:30 98 20 95/64 (74) 94 03/28/20 21:00 98.5 92 20 115/79 (91) 91 03/28/20 21:00 115/79 03/28/20 20:58 81 20 100/63 (75) 92 03/28/20 20:52 59 20 46/22 (30) 89 03/28/20 20:46 101 20 74/58 (63) 93 03/28/20 20:45 91 29 100 03/28/20 20:12 104 30 59/48 (52) 88 03/28/20 20:08 104 30 57/42 (47) 92 03/28/20 20:00 100 03/28/20 20:00 97.1 104 31 32/23 (26) 85 03/28/20 20:00 32/23 03/28/20 20:00 Mechanical Ventilator 03/28/20 19:54 90/70 03/28/20 19:30 105 30 74/57 (63) 90 03/28/20 19:23 103 22 90/70 (77) 97 03/28/20 19:19 104 03/28/20 19:15 106 26 99 03/28/20 19:00 94/54 03/28/20 19:00 107 29 94 03/28/20 18:45 97.4 106 29 94/54 (67) 90 03/28/20 18:38 106 57/49 03/28/20 18:30 106 39 100 03/28/20 18:25 107 29 57/49 (52) 90 03/28/20 18:02 108 29 100/69 (79) 98 03/28/20 18:00 63/54 03/28/20 18:00 108 30 63/54 (57) 93 03/28/20 17:30 107 30 88/75 (79) 93 03/28/20 17:02 108 28 100/69 (79) 98 03/28/20 17:00 100/69 03/28/20 16:48 119 43 100 03/28/20 16:06 105 25 104/65 (78) 98 03/28/20 16:03 112 03/28/20 16:00 104/65 03/28/20 16:00 100 03/28/20 16:00 Mechanical Ventilator 03/28/20 15:08 116 43 100 03/28/20 15:00 97.5 101 33 90/60 (70) 100 03/28/20 15:00 90/60 03/28/20 14:00 104/80 03/28/20 14:00 113 31 104/80 (88) 90 03/28/20 13:04 93 29 100 03/28/20 13:00 98 38 97/59 (72) 100 03/28/20 13:00 97/59 03/28/20 13:00 97/59 03/28/20 12:02 110 40 98/42 (60) 03/28/20 12:00 98/42 03/28/20 12:00 Mechanical Ventilator 03/28/20 12:00 100 03/28/20 11:45 93/64 03/28/20 11:31 111 03/28/20 11:30 86 24 91/55 (67) 89 03/28/20 11:25 100 03/28/20 11:03 107 43 60 03/28/20 11:00 110 40 98/42 (60) 03/28/20 11:00 98/42 03/28/20 10:00 112 40 100/69 (79) 90 03/28/20 10:00 100/69 03/28/20 09:30 97 36 94/62 (73) 90 03/28/20 09:00 93/60 03/28/20 09:00 93/60 03/28/20 09:00 90 29 93/60 (71) 91 03/28/20 08:37 102 34 60 03/28/20 08:30 111 37 99/63 (75) 90 Intake and Output 03/28/20 03/29/20 19:00 07:00 Intake Total 3183.518 ml 2323.77 ml Output Total 460 ml 0 ml Balance 2723.518 ml 2323.77 ml IV Total 3183.518 ml 2323.77 ml Output Urine Total 60 ml 0 ml Stool Total 400 ml General Appearance: no acute distress HEENT: normocephalic Respiratory: decreased breath sounds Cardiovascular: normal peripheral pulses, normal rate Abdomen: distended Microbiology Date/Time Source Procedure Growth Status 03/26/20 23:30 Sputum Gram Stain - Final Resulted 03/26/20 23:30 Sputum Culture - Preliminary YEAST Resulted Laboratory Tests 03/28/20 11:12: Arterial Blood pH 7.308L, Arterial Blood Partial Pressure CO2 29.6L, Arterial Blood Partial Pressure O2 44.3*L, Arterial Blood HCO3 14.5*L, Arterial Blood Oxygen Saturation 70.9*L, Arterial Blood Base Excess -10.7*L, Shaun Test Positive 03/29/20 04:30: White Blood Count 39.0*H, Red Blood Count 4.01L, Hemoglobin 11.7#L, Hematocrit 36.4#L, Mean Corpuscular Volume 91, Mean Corpuscular Hemoglobin 29.2, Mean Corpuscular Hemoglobin Concent 32.1, Red Cell Distribution Width 17.6H, Platelet Count 12#L, Mean Platelet Volume 14.2H, Neutrophils (%) (Auto) , Lymphocytes (%) (Auto) , Monocytes (%) (Auto) , Eosinophils (%) (Auto) , Basophils (%) (Auto) , Neutrophils % (Manual) [Pending], Lymphocytes % (Manual) [Pending], Platelet Estimate [Pending], Platelet Morphology [Pending], Prothrombin Time 18.9H, Prothromb Time International Ratio 1.8H, Sodium Level 147H, Potassium Level 3.3L , Chloride Level 110H, Carbon Dioxide Level 17L, Anion Gap 20H, Blood Urea Nitrogen 31H, Creatinine 2.4H, Estimat Glomerular Filtration Rate 21.3, Glucose Level 204H, Lactic Acid Level 9.30H, Calcium Level 7.3L, Total Bilirubin 12.7H, Direct Bilirubin 10.5H, Aspartate Amino Transf (AST/SGOT) 222H, Alanine Aminotransferase (ALT/SGPT) 95H, Alkaline Phosphatase 213H, Troponin I 0.077H, Total Protein 4.5L, Albumin 1.8L, Globulin 2.7, Albumin/Globulin Ratio 0.7L, Cortisol AM Sample [Pending] Current Medications Medications (Trade) Dose Ordered Sig/Joanna Route PRN Reason Start Time Stop Time Status Last Admin Dose Admin Amylase/Lipase/ Protease (Hallie DR 36,000 units cap) 1 ea WITH SNACKS PRN ORAL give with snacks 03/21/20 09:30 06/19/20 09:29 03/22/20 12:10 Chlorhexidine Gluconate (Roxanne-Hex 2%) 1 applic DAILY@2000 TOPIC 03/27/20 20:00 06/25/20 19:59 03/28/20 20:20 Dextrose (Dextrose 50%) 25 ml Q30M PRN IV Hypoglycemia 03/20/20 20:45 06/18/20 20:44 Dextrose (Dextrose 50%) 50 ml Q30M PRN IV Hypoglycemia 03/20/20 20:45 06/18/20 20:44 03/26/20 20:51 Folic Acid 1 mg/ Magnesium Sulfate 2000 mg/ Multivitamins 10 ml/Sodium Chloride 1,014.2 ml @ 125 mls/ hr Q24H IV 03/21/20 12:00 04/20/20 11:59 03/28/20 12:33 Lactulose (Cephulac) 30 gm EVERY 8 HOURS ORAL 03/25/20 14:00 04/24/20 13:59 03/29/20 06:00 Magnesium Hydroxide (Mom) 30 ml HSPRN PRN ORAL Constipation 03/20/20 20:45 04/19/20 20:44 Midodrine (Pro-Amatine) 5 mg EVERY 8 HOURS NG 03/28/20 14:00 06/19/20 09:59 03/29/20 06:00 Norepinephrine Bitartrate 16 mg/ Sodium Chloride 500 ml @ 0 mls/hr Q24H IV 03/27/20 16:30 03/30/20 16:29 03/29/20 04:56 Pantoprazole (Protonix) 40 mg DAILY IVP 03/28/20 17:00 04/27/20 16:59 03/28/20 17:18 Pentoxifylline (TRENtal) 400 mg THREE TIMES A DAY ORAL 03/23/20 22:00 06/21/20 21:59 03/27/20 17:08 Phenylephrine HCl 100 mg/Dextrose 250 ml @ 0 mls/hr Q24H IV 03/28/20 18:30 04/27/20 18:29 03/29/20 00:34 Piperacillin Sod/ Tazobactam Sod 3.375 gm/Sodium Chloride 110 ml @ 27.5 mls/hr Q12HR IVPB 03/26/20 14:00 04/02/20 13:59 03/28/20 20:20 Rifaximin (Xifaxan) 550 mg EVERY 12 HOURS ORAL 03/22/20 21:00 04/03/20 23:59 03/28/20 20:20 Sodium Bicarbonate 150 ml/Dextrose 1,150 ml @ 100 mls/hr [id number] IV 03/26/20 23:00 04/25/20 22:59 03/28/20 22:00 Spironolactone (Aldactone) 50 mg DAILY ORAL 03/22/20 09:00 04/21/20 08:59 03/28/20 09:23 Thiamine HCl 100 mg/Dextrose 56 ml @ 112 mls/hr Q24H IVPB 03/21/20 12:00 04/20/20 11:59 03/28/20 12:25 Vancomycin HCl ([facility] pharmacy to dose) 1 ea DAILY PRN MISC Per rx protocol 03/27/20 11:15 04/26/20 11:14 Vasopressin 100 units/Sodium Chloride 100 ml @ 0 mls/hr Q24H IV 03/28/20 20:15 03/31/20 20:14 03/28/20 20:45 Assessment/Plan Assessment/Plan IMPRESSION: 1. Respiratory failure. 2. Status post Code Blue. 3. Marked leukocytosis 4. Sepsis 5. Hepatic failure. 6. Renal failure. 7. Significant metabolic acidosis. 8. Tense ascites 9. Coagulopathy 10. Shock; on pressors DISCUSSION: The patient is critically ill with respiratory failure. She also has hepatic failure and renal failure consistent for hepatorenal syndrome. Prognosis is grave. 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 Agree with broad-spectrum antibiotics. Continue pulmonary hygiene. I will continue vent as is. Lemuel Justice M.D. Lemuel Justice MD Mar 29, 2020 08:08
[2020-03-29] MEDS: Spironolactone 50mg tab ORAL SCH (08:28)
[2020-03-29] MEDS: Piperacillin/Tazobactam 3.375 GM in NS 110 ML IVPB SCH ×2 (08:35→21:54)
[2020-03-29] MEDS: Pantoprazole Inj IVP SCH (08:35)
--- NOTE | 2020-03-29 11:20 | Cardiology Progress Note ---
Assessment/Plan Assessment/Plan 1. Cardiopulmonary arrest, status post 19 minutes of advanced and basic cardiac life support. 2. Hypotension / septic shock 3. Leukocytosis, leukemoid reaction. 4. Coagulopathy. 5. Thrombocytopenia. 6. Cirrhosis. 7. Perihilar infiltrate. 8. Possible chronic pancreatitis with calcification on CT. 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 10. Gas and fluid collection adjacent to the vaginal wall. 11. Lactic acidosis. 12. Hepatic encephalopathy 13. metabolic acidosis 14. LV systolic dysfunction 15. coagulopathy 16. thrombocytopenia diarrhea on lactulose s/p prbc tx iv abdx empiric vent support bp low i had to addeded tota of 3 pressor sbu bp is quite low tele reviewed sinus echo noted ef 40% with swma lft abn lactic acidosis is worse is more hypoxemic today requring max dose of oxygen mentation worse prognois is poor pt remain critical and at risk of dying continue supportive measures but now dnr per rn d/w rn etiology of gas noted in the pelvis on ct?? plt are lower cortisol level in am cxr personally reviewed d/w family iwth such profound hypotension unlikey to survive very long Subjective ROS Limited/Unobtainable: Yes Objective Last 24 Hour Vital Signs Date Time Temp Pulse Resp B/P (MAP) Pulse Ox O2 Delivery O2 Flow Rate FiO2 03/29/20 11:00 105 45 52/31 (38) 95 03/29/20 10:00 104 45 51/39 (43) 72 03/29/20 10:00 90 96/55 03/29/20 09:30 97 41 102/28 (52) 79 03/29/20 09:00 90 35 96/55 (69) 84 03/29/20 09:00 96/55 03/29/20 08:30 97 35 90/50 (63) 92 03/29/20 08:27 82/57 03/29/20 08:15 105 40 82/57 (65) 68 03/29/20 08:00 97.0 101 37 55/30 (38) 03/29/20 08:00 100 03/29/20 08:00 55/30 03/29/20 08:00 Mechanical Ventilator 03/29/20 07:45 92 38 83/37 (52) 03/29/20 07:36 106 43 100 03/29/20 07:32 95 03/29/20 07:30 95 41 114/57 (76) 03/29/20 07:15 101 42 133/110 (118) 87 03/29/20 07:00 76/54 03/29/20 07:00 97 37 76/54 (61) 03/29/20 06:45 96 36 49/37 (41) 95 03/29/20 06:30 106 41 58/23 (35) 98 03/29/20 06:15 105 40 58/28 (38) 87 03/29/20 06:00 49/37 03/29/20 06:00 96.8 101 43 67/27 (40) 86 03/29/20 05:45 99 38 65/34 (44) 89 03/29/20 05:30 101 40 91/63 (72) 87 03/29/20 05:15 103 41 61/48 (52) 91 03/29/20 05:00 102 38 36/18 (24) 83 03/29/20 05:00 75/29 03/29/20 04:56 90/48 03/29/20 04:30 100 35 90/48 (62) 79 03/29/20 04:30 98 40 100 03/29/20 04:15 102 33 92/77 (82) 60 03/29/20 04:05 97 27 116/68 (84) 73 03/29/20 04:00 102 03/29/20 04:00 97.1 105 35 48/23 (31) 73 03/29/20 04:00 Mechanical Ventilator 03/29/20 04:00 116/68 03/29/20 04:00 100 03/29/20 03:30 96 32 91/45 (60) 80 03/29/20 03:26 99 40 77/41 (53) 86 03/29/20 03:15 99 34 85/48 (60) 98 03/29/20 03:00 100 34 69/39 (49) 79 03/29/20 03:00 85/48 03/29/20 02:37 100 40 100 03/29/20 02:00 104 25 75/46 (56) 94 03/29/20 02:00 75/46 03/29/20 01:45 103 24 83/64 (70) 92 03/29/20 01:30 103 22 64/38 (47) 82 03/29/20 01:15 104 20 66/49 (55) 90 03/29/20 01:00 83/64 03/29/20 01:00 103 21 72/52 (59) 93 03/29/20 00:45 105 20 71/13 (32) 82 03/29/20 00:43 105 21 100 03/29/20 00:34 108 65/30 03/29/20 00:30 104 20 105/76 (86) 84 03/29/20 00:15 104 20 68/49 (55) 96 03/29/20 00:00 Mechanical Ventilator 03/29/20 00:00 100 03/29/20 00:00 88/53 03/29/20 00:00 97.6 103 20 88/53 (65) 88 03/29/20 00:00 101 03/28/20 23:05 108 35 65/30 (42) 72 03/28/20 23:00 39/29 03/28/20 23:00 104 21 39/29 (32) 60 03/28/20 22:31 104 20 100 03/28/20 22:30 105 20 65/16 (32) 75 03/28/20 22:20 106 20 53/27 (36) 93 03/28/20 22:02 105 20 67/41 (50) 78 03/28/20 22:00 105 20 34/20 (25) 85 03/28/20 22:00 34/20 03/28/20 21:30 98 20 95/64 (74) 94 03/28/20 21:00 98.5 92 20 115/79 (91) 91 03/28/20 21:00 115/79 03/28/20 20:58 81 20 100/63 (75) 92 03/28/20 20:52 59 20 46/22 (30) 89 03/28/20 20:46 101 20 74/58 (63) 93 03/28/20 20:45 91 29 100 03/28/20 20:12 104 30 59/48 (52) 88 03/28/20 20:08 104 30 57/42 (47) 92 03/28/20 20:00 100 03/28/20 20:00 97.1 104 31 32/23 (26) 85 03/28/20 20:00 32/23 03/28/20 20:00 Mechanical Ventilator 03/28/20 19:54 90/70 03/28/20 19:30 105 30 74/57 (63) 90 03/28/20 19:23 103 22 90/70 (77) 97 03/28/20 19:19 104 03/28/20 19:15 106 26 99 03/28/20 19:00 94/54 03/28/20 19:00 107 29 94 03/28/20 18:45 97.4 106 29 94/54 (67) 90 03/28/20 18:38 106 57/49 03/28/20 18:30 106 39 100 03/28/20 18:25 107 29 57/49 (52) 90 03/28/20 18:02 108 29 100/69 (79) 98 03/28/20 18:00 63/54 03/28/20 18:00 108 30 63/54 (57) 93 03/28/20 17:30 107 30 88/75 (79) 93 03/28/20 17:02 108 28 100/69 (79) 98 03/28/20 17:00 100/69 03/28/20 16:48 119 43 100 03/28/20 16:06 105 25 104/65 (78) 98 03/28/20 16:03 112 03/28/20 16:00 104/65 03/28/20 16:00 100 03/28/20 16:00 Mechanical Ventilator 03/28/20 15:08 116 43 100 03/28/20 15:00 97.5 101 33 90/60 (70) 100 03/28/20 15:00 90/60 03/28/20 14:00 104/80 03/28/20 14:00 113 31 104/80 (88) 90 03/28/20 13:04 93 29 100 03/28/20 13:00 98 38 97/59 (72) 100 03/28/20 13:00 97/59 03/28/20 13:00 97/59 03/28/20 12:02 110 40 98/42 (60) 03/28/20 12:00 98/42 03/28/20 12:00 Mechanical Ventilator 03/28/20 12:00 100 03/28/20 11:45 93/64 03/28/20 11:31 111 03/28/20 11:30 86 24 91/55 (67) 89 03/28/20 11:25 100 General Appearance: on vent, patient on isolation Cardiovascular: normal rate Respiratory/Chest: rhonchi - bilaterally Abdomen: soft, hypoactive bowel sounds Extremities: no swelling Intake and Output 03/28/20 03/29/20 19:00 07:00 Intake Total 3183.518 ml 2518.42 ml Output Total 460 ml 0 ml Balance 2723.518 ml 2518.42 ml IV Total 3183.518 ml 2518.42 ml Output Urine Total 60 ml 0 ml Stool Total 400 ml Laboratory Tests Test 03/29/20 04:30 03/29/20 10:10 White Blood Count 39.0 K/UL (4.8-10.8) *H Red Blood Count 4.01 M/UL (4.20-5.40) L Hemoglobin 11.7 G/DL (12.0-16.0) #L Hematocrit 36.4 % (37.0-47.0) #L Mean Corpuscular Volume 91 FL (80-99) Mean Corpuscular Hemoglobin 29.2 PG (27.0-31.0) Mean Corpuscular Hemoglobin Concent 32.1 G/DL (32.0-36.0) Red Cell Distribution Width 17.6 % (11.6-14.8) H Platelet Count 12 K/UL (150-450) #L Mean Platelet Volume 14.2 FL (6.5-10.1) H Neutrophils (%) (Auto) % (45.0-75.0) Lymphocytes (%) (Auto) % (20.0-45.0) Monocytes (%) (Auto) % (1.0-10.0) Eosinophils (%) (Auto) % (0.0-3.0) Basophils (%) (Auto) % (0.0-2.0) Differential Total Cells Counted 100 Neutrophils % (Manual) 80 % (45-75) H Lymphocytes % (Manual) 3 % (20-45) L Monocytes % (Manual) 0 % (1-10) L Eosinophils % (Manual) 0 % (0-3) Basophils % (Manual) 0 % (0-2) Myelocytes % 1 % (0-0) H Band Neutrophils 16 % (0-8) H Nucleated Red Blood Cells 2 /100 WBC Platelet Estimate Decreased L Platelet Morphology Normal Anisocytosis 2+ Prothrombin Time 18.9 SEC (9.30-11.50) H Prothromb Time International Ratio 1.8 (0.9-1.1) H Sodium Level 147 MMOL/L (136-145) H Potassium Level 3.3 MMOL/L (3.5-5.1) L Chloride Level 110 MMOL/L (98-107) H Carbon Dioxide Level 17 MMOL/L (21-32) L Anion Gap 20 mmol/L (5-15) H Blood Urea Nitrogen 31 mg/dL (7-18) H Creatinine 2.4 MG/DL (0.55-1.30) H Estimat Glomerular Filtration Rate 21.3 mL/min (>60) Glucose Level 204 MG/DL (74-106) H Lactic Acid Level 9.30 mmol/L (0.4-2.0) H 10.40 mmol/L (0.66-2.22) H Calcium Level 7.3 MG/DL (8.5-10.1) L Total Bilirubin 12.7 MG/DL (0.2-1.0) H Direct Bilirubin 10.5 MG/DL (0.0-0.3) H Aspartate Amino Transf (AST/SGOT) 222 U/L (15-37) H Alanine Aminotransferase (ALT/SGPT) 95 U/L (12-78) H Alkaline Phosphatase 213 U/L (46-116) H Troponin I 0.077 ng/mL (0.000-0.056) Total Protein 4.5 G/DL (6.4-8.2) L Albumin 1.8 G/DL (3.4-5.0) L Globulin 2.7 g/dL Albumin/Globulin Ratio 0.7 (1.0-2.7) L Cortisol AM Sample Pending Random Vancomycin Level 27.1 ug/mL Microbiology Date/Time Source Procedure Growth Status 03/26/20 23:30 Sputum Gram Stain - Final Resulted 03/26/20 23:30 Sputum Culture - Preliminary YEAST Resulted Curtis Worley MD Mar 29, 2020 11:20
--- NOTE | 2020-03-29 11:51 | General Progress Note ---
Subjective Date patient seen: Mar 29, 2020 ROS Limited/Unobtainable: Yes Allergies: Coded Allergies: No Known Allergies (Unverified , 03/20/20) Objective Last 24 Hour Vital Signs Date Time Temp Pulse Resp B/P (MAP) Pulse Ox O2 Delivery O2 Flow Rate FiO2 03/29/20 11:30 104 45 70/19 (36) 93 03/29/20 11:00 52/31 03/29/20 11:00 105 45 52/31 (38) 95 03/29/20 10:30 106 44 48/29 (35) 86 03/29/20 10:00 104 45 51/39 (43) 72 03/29/20 10:00 90 96/55 03/29/20 10:00 51/39 03/29/20 09:30 97 41 102/28 (52) 79 03/29/20 09:00 90 35 96/55 (69) 84 03/29/20 09:00 96/55 03/29/20 08:30 97 35 90/50 (63) 92 03/29/20 08:27 82/57 03/29/20 08:15 105 40 82/57 (65) 68 03/29/20 08:00 97.0 101 37 55/30 (38) 03/29/20 08:00 100 03/29/20 08:00 55/30 03/29/20 08:00 Mechanical Ventilator 03/29/20 07:45 92 38 83/37 (52) 03/29/20 07:36 106 43 100 03/29/20 07:32 95 03/29/20 07:30 95 41 114/57 (76) 03/29/20 07:15 101 42 133/110 (118) 87 03/29/20 07:00 76/54 03/29/20 07:00 97 37 76/54 (61) 03/29/20 06:45 96 36 49/37 (41) 95 03/29/20 06:30 106 41 58/23 (35) 98 03/29/20 06:15 105 40 58/28 (38) 87 03/29/20 06:00 49/37 03/29/20 06:00 96.8 101 43 67/27 (40) 86 03/29/20 05:45 99 38 65/34 (44) 89 03/29/20 05:30 101 40 91/63 (72) 87 03/29/20 05:15 103 41 61/48 (52) 91 03/29/20 05:00 102 38 36/18 (24) 83 03/29/20 05:00 75/29 03/29/20 04:56 90/48 03/29/20 04:30 100 35 90/48 (62) 79 03/29/20 04:30 98 40 100 03/29/20 04:15 102 33 92/77 (82) 60 03/29/20 04:05 97 27 116/68 (84) 73 03/29/20 04:00 102 03/29/20 04:00 97.1 105 35 48/23 (31) 73 03/29/20 04:00 Mechanical Ventilator 03/29/20 04:00 116/68 03/29/20 04:00 100 03/29/20 03:30 96 32 91/45 (60) 80 03/29/20 03:26 99 40 77/41 (53) 86 03/29/20 03:15 99 34 85/48 (60) 98 03/29/20 03:00 100 34 69/39 (49) 79 03/29/20 03:00 85/48 03/29/20 02:37 100 40 100 03/29/20 02:00 104 25 75/46 (56) 94 03/29/20 02:00 75/46 03/29/20 01:45 103 24 83/64 (70) 92 03/29/20 01:30 103 22 64/38 (47) 82 03/29/20 01:15 104 20 66/49 (55) 90 03/29/20 01:00 83/64 03/29/20 01:00 103 21 72/52 (59) 93 03/29/20 00:45 105 20 71/13 (32) 82 03/29/20 00:43 105 21 100 03/29/20 00:34 108 65/30 03/29/20 00:30 104 20 105/76 (86) 84 03/29/20 00:15 104 20 68/49 (55) 96 03/29/20 00:00 Mechanical Ventilator 03/29/20 00:00 100 03/29/20 00:00 88/53 03/29/20 00:00 97.6 103 20 88/53 (65) 88 03/29/20 00:00 101 03/28/20 23:05 108 35 65/30 (42) 72 03/28/20 23:00 39/29 03/28/20 23:00 104 21 39/29 (32) 60 03/28/20 22:31 104 20 100 03/28/20 22:30 105 20 65/16 (32) 75 03/28/20 22:20 106 20 53/27 (36) 93 03/28/20 22:02 105 20 67/41 (50) 78 03/28/20 22:00 105 20 34/20 (25) 85 03/28/20 22:00 34/20 03/28/20 21:30 98 20 95/64 (74) 94 03/28/20 21:00 98.5 92 20 115/79 (91) 91 03/28/20 21:00 115/79 03/28/20 20:58 81 20 100/63 (75) 92 03/28/20 20:52 59 20 46/22 (30) 89 03/28/20 20:46 101 20 74/58 (63) 93 03/28/20 20:45 91 29 100 03/28/20 20:12 104 30 59/48 (52) 88 03/28/20 20:08 104 30 57/42 (47) 92 03/28/20 20:00 100 03/28/20 20:00 97.1 104 31 32/23 (26) 85 03/28/20 20:00 32/23 03/28/20 20:00 Mechanical Ventilator 03/28/20 19:54 90/70 03/28/20 19:30 105 30 74/57 (63) 90 03/28/20 19:23 103 22 90/70 (77) 97 03/28/20 19:19 104 03/28/20 19:15 106 26 99 03/28/20 19:00 94/54 03/28/20 19:00 107 29 94 03/28/20 18:45 97.4 106 29 94/54 (67) 90 03/28/20 18:38 106 57/49 03/28/20 18:30 106 39 100 03/28/20 18:25 107 29 57/49 (52) 90 03/28/20 18:02 108 29 100/69 (79) 98 03/28/20 18:00 63/54 03/28/20 18:00 108 30 63/54 (57) 93 03/28/20 17:30 107 30 88/75 (79) 93 03/28/20 17:02 108 28 100/69 (79) 98 03/28/20 17:00 100/69 03/28/20 16:48 119 43 100 03/28/20 16:06 105 25 104/65 (78) 98 03/28/20 16:03 112 03/28/20 16:00 104/65 03/28/20 16:00 100 03/28/20 16:00 Mechanical Ventilator 03/28/20 15:08 116 43 100 03/28/20 15:00 97.5 101 33 90/60 (70) 100 03/28/20 15:00 90/60 03/28/20 14:00 104/80 03/28/20 14:00 113 31 104/80 (88) 90 03/28/20 13:04 93 29 100 03/28/20 13:00 98 38 97/59 (72) 100 03/28/20 13:00 97/59 03/28/20 13:00 97/59 03/28/20 12:02 110 40 98/42 (60) 03/28/20 12:00 98/42 03/28/20 12:00 Mechanical Ventilator 03/28/20 12:00 100 Intake and Output 03/28/20 03/29/20 19:00 07:00 Intake Total 3183.518 ml 2518.42 ml Output Total 460 ml 0 ml Balance 2723.518 ml 2518.42 ml IV Total 3183.518 ml 2518.42 ml Output Urine Total 60 ml 0 ml Stool Total 400 ml Current Medications Medications (Trade) Dose Ordered Sig/Joanna Route PRN Reason Start Time Stop Time Status Last Admin Dose Admin Amylase/Lipase/ Protease (Hallie TAYLOR 36,000 units cap) 1 ea WITH SNACKS PRN ORAL give with snacks 03/21/20 09:30 06/19/20 09:29 03/22/20 12:10 Chlorhexidine Gluconate (Roxanne-Hex 2%) 1 applic DAILY@1999 TOPIC 03/27/20 20:00 06/25/20 19:59 03/28/20 20:20 Dextrose (Dextrose 50%) 25 ml Q30M PRN IV Hypoglycemia 03/20/20 20:45 06/18/20 20:44 Dextrose (Dextrose 50%) 50 ml Q30M PRN IV Hypoglycemia 03/20/20 20:45 06/18/20 20:44 03/26/20 20:51 Folic Acid 1 mg/ Magnesium Sulfate 2000 mg/ Multivitamins 10 ml/Sodium Chloride 1,014.2 ml @ 125 mls/ hr Q24H IV 03/21/20 12:00 04/20/20 11:59 03/28/20 12:33 Lactulose (Cephulac) 30 gm EVERY 8 HOURS ORAL 03/25/20 14:00 04/24/20 13:59 03/29/20 06:00 Magnesium Hydroxide (Mom) 30 ml HSPRN PRN ORAL Constipation 03/20/20 20:45 04/19/20 20:44 Midodrine (Pro-Amatine) 5 mg EVERY 8 HOURS NG 03/28/20 14:00 06/19/20 09:59 03/29/20 06:00 Norepinephrine Bitartrate 16 mg/ Sodium Chloride 500 ml @ 0 mls/hr Q24H IV 03/27/20 16:30 03/30/20 16:29 03/29/20 04:56 Pantoprazole (Protonix) 40 mg DAILY IVP 03/28/20 17:00 04/27/20 16:59 03/29/20 08:35 Pentoxifylline (TRENtal) 400 mg THREE TIMES A DAY ORAL 03/23/20 22:00 06/21/20 21:59 03/27/20 17:08 Phenylephrine HCl 100 mg/Dextrose 250 ml @ 0 mls/hr Q24H IV 03/28/20 18:30 04/27/20 18:29 03/29/20 10:00 Piperacillin Sod/ Tazobactam Sod 3.375 gm/Sodium Chloride 110 ml @ 27.5 mls/hr Q12HR IVPB 03/26/20 14:00 04/02/20 13:59 03/29/20 08:35 Rifaximin (Xifaxan) 550 mg EVERY 12 HOURS ORAL 03/22/20 21:00 04/03/20 23:59 03/29/20 08:35 Sodium Bicarbonate 150 ml/Dextrose 1,150 ml @ 100 mls/hr Q43H42B IV 03/26/20 23:00 04/25/20 22:59 03/28/20 22:00 Spironolactone (Aldactone) 50 mg DAILY ORAL 03/22/20 09:00 04/21/20 08:59 03/28/20 09:23 Thiamine HCl 100 mg/Dextrose 56 ml @ 112 mls/hr Q24H IVPB 03/21/20 12:00 04/20/20 11:59 03/28/20 12:25 Vancomycin HCl ([facility] pharmacy to dose) 1 ea DAILY PRN MISC Per rx protocol 03/27/20 11:15 04/26/20 11:14 Vasopressin 100 units/Sodium Chloride 100 ml @ 0 mls/hr Q24H IV 03/28/20 20:15 03/31/20 20:14 03/28/20 20:45 Laboratory Tests 03/29/20 04:30: White Blood Count 39.0*H, Red Blood Count 4.01L, Hemoglobin 11.7#L, Hematocrit 36.4#L, Mean Corpuscular Volume 91, Mean Corpuscular Hemoglobin 29.2, Mean Corpuscular Hemoglobin Concent 32.1, Red Cell Distribution Width 17.6H, Platelet Count 12#L, Mean Platelet Volume 14.2H, Neutrophils (%) (Auto) , Lymphocytes (%) (Auto) , Monocytes (%) (Auto) , Eosinophils (%) (Auto) , Basophils (%) (Auto) , Differential Total Cells Counted 100, Neutrophils % (Manual) 80H, Lymphocytes % (Manual) 3L, Monocytes % (Manual) 0L, Eosinophils % (Manual) 0, Basophils % (Manual) 0, Myelocytes % 1H, Band Neutrophils 16H, Nucleated Red Blood Cells 2, Platelet Estimate DecreasedL, Platelet Morphology Normal, Anisocytosis 2+, Prothrombin Time 18.9H, Prothromb Time International Ratio 1.8H, Sodium Level 147H, Potassium Level 3.3L, Chloride Level 110H, Carbon Dioxide Level 17L, Anion Gap 20H, Blood Urea Nitrogen 31H, Creatinine 2.4H, Estimat Glomerular Filtration Rate 21.3, Glucose Level 204H, Lactic Acid Level 9.30H, Calcium Level 7.3L, Total Bilirubin 12.7H, Direct Bilirubin 10.5H, Aspartate Amino Transf (AST/SGOT) 222H, Alanine Aminotransferase (ALT/SGPT) 95H, Alkaline Phosphatase 213H, Troponin I 0.077H, Total Protein 4.5L, Albumin 1.8L, Globulin 2.7, Albumin/Globulin Ratio 0.7L, Cortisol AM Sample [Pending] 03/29/20 10:10: Lactic Acid Level 10.40H, Random Vancomycin Level 27.1 Height (Feet): 4 Height (Inches): 11.00 Weight (Pounds): 105 EENT: other - Trach and vent Cardiovascular: tachycardia Respiratory/Chest: decreased breath sounds Abdomen: distended Assessment/Plan Problem List: (1) ARF (acute renal failure) ICD Codes: N17.9 - Acute kidney failure, unspecified SNOMED: 64036144 (2) Cirrhosis ICD Codes: K74.60 - Unspecified cirrhosis of liver SNOMED: 11872078 Qualifiers: Qualified Codes: K70.31 - Alcoholic cirrhosis of liver with ascites (3) Cardiopulmonary arrest ICD Codes: I46.9 - Cardiac arrest, cause unspecified SNOMED: [id number] Status: unchanged, deteriorating Assessment/Plan: I am covering for Dr. Erick Diaz Patient seen in ICU room B and discussed with RN "Danielito" Patient is DNR/DNI. Labs reviewed Medication reviewed Discussed with RN and tax preparer Dr Worley Continue current supportive care Tyrone Li MD Mar 29, 2020 11:51
[2020-03-29] MEDS: Folic Acid 1 MG, Magnesium Sulfate 2,000 MG, Multivitamin - 12 Injection 10 ML in Sodiu... IV SCH (12:00)
[2020-03-29] MEDS: Thiamine 100mg IVPB (Q24H) IVPB SCH ×2 (12:00)
--- NOTE | 2020-03-29 12:29 | General Progress Note ---
Subjective Allergies: Coded Allergies: No Known Allergies (Unverified , 03/20/20) Subjective above noted seen in ICU doing poorly on max pressors d/w RN, poor urine output d/w mother and brother at bedside advised that patient will likely soon Objective Last 24 Hour Vital Signs Date Time Temp Pulse Resp B/P (MAP) Pulse Ox O2 Delivery O2 Flow Rate FiO2 03/29/20 12:15 106 47 105/44 (64) 53 03/29/20 12:00 104 46 65/17 (33) 87 03/29/20 12:00 Mechanical Ventilator 03/29/20 12:00 100 03/29/20 11:30 104 45 70/19 (36) 93 03/29/20 11:00 52/31 03/29/20 11:00 105 45 52/31 (38) 95 03/29/20 10:30 106 44 48/29 (35) 86 03/29/20 10:00 104 45 51/39 (43) 72 03/29/20 10:00 90 96/55 03/29/20 10:00 51/39 03/29/20 09:30 97 41 102/28 (52) 79 03/29/20 09:00 90 35 96/55 (69) 84 03/29/20 09:00 96/55 03/29/20 08:30 97 35 90/50 (63) 92 03/29/20 08:27 82/57 03/29/20 08:15 105 40 82/57 (65) 68 03/29/20 08:00 97.0 101 37 55/30 (38) 03/29/20 08:00 100 03/29/20 08:00 55/30 03/29/20 08:00 Mechanical Ventilator 03/29/20 07:45 92 38 83/37 (52) 03/29/20 07:36 106 43 100 03/29/20 07:32 95 03/29/20 07:30 95 41 114/57 (76) 03/29/20 07:15 101 42 133/110 (118) 87 03/29/20 07:00 76/54 03/29/20 07:00 97 37 76/54 (61) 03/29/20 06:45 96 36 49/37 (41) 95 03/29/20 06:30 106 41 58/23 (35) 98 03/29/20 06:15 105 40 58/28 (38) 87 03/29/20 06:00 49/37 03/29/20 06:00 96.8 101 43 67/27 (40) 86 03/29/20 05:45 99 38 65/34 (44) 89 03/29/20 05:30 101 40 91/63 (72) 87 03/29/20 05:15 103 41 61/48 (52) 91 03/29/20 05:00 102 38 36/18 (24) 83 03/29/20 05:00 75/29 03/29/20 04:56 90/48 03/29/20 04:30 100 35 90/48 (62) 79 03/29/20 04:30 98 40 100 03/29/20 04:15 102 33 92/77 (82) 60 03/29/20 04:05 97 27 116/68 (84) 73 03/29/20 04:00 102 03/29/20 04:00 97.1 105 35 48/23 (31) 73 03/29/20 04:00 Mechanical Ventilator 03/29/20 04:00 116/68 03/29/20 04:00 100 03/29/20 03:30 96 32 91/45 (60) 80 03/29/20 03:26 99 40 77/41 (53) 86 03/29/20 03:15 99 34 85/48 (60) 98 03/29/20 03:00 100 34 69/39 (49) 79 03/29/20 03:00 85/48 03/29/20 02:37 100 40 100 03/29/20 02:00 104 25 75/46 (56) 94 03/29/20 02:00 75/46 03/29/20 01:45 103 24 83/64 (70) 92 03/29/20 01:30 103 22 64/38 (47) 82 03/29/20 01:15 104 20 66/49 (55) 90 03/29/20 01:00 83/64 03/29/20 01:00 103 21 72/52 (59) 93 03/29/20 00:45 105 20 71/13 (32) 82 03/29/20 00:43 105 21 100 03/29/20 00:34 108 65/30 03/29/20 00:30 104 20 105/76 (86) 84 03/29/20 00:15 104 20 68/49 (55) 96 03/29/20 00:00 Mechanical Ventilator 03/29/20 00:00 100 03/29/20 00:00 88/53 03/29/20 00:00 97.6 103 20 88/53 (65) 88 03/29/20 00:00 101 03/28/20 23:05 108 35 65/30 (42) 72 03/28/20 23:00 39/29 03/28/20 23:00 104 21 39/29 (32) 60 03/28/20 22:31 104 20 100 03/28/20 22:30 105 20 65/16 (32) 75 03/28/20 22:20 106 20 53/27 (36) 93 03/28/20 22:02 105 20 67/41 (50) 78 03/28/20 22:00 105 20 34/20 (25) 85 03/28/20 22:00 34/20 03/28/20 21:30 98 20 95/64 (74) 94 03/28/20 21:00 98.5 92 20 115/79 (91) 91 03/28/20 21:00 115/79 03/28/20 20:58 81 20 100/63 (75) 92 03/28/20 20:52 59 20 46/22 (30) 89 03/28/20 20:46 101 20 74/58 (63) 93 03/28/20 20:45 91 29 100 03/28/20 20:12 104 30 59/48 (52) 88 03/28/20 20:08 104 30 57/42 (47) 92 03/28/20 20:00 100 03/28/20 20:00 97.1 104 31 32/23 (26) 85 03/28/20 20:00 32/23 03/28/20 20:00 Mechanical Ventilator 03/28/20 19:54 90/70 03/28/20 19:30 105 30 74/57 (63) 90 03/28/20 19:23 103 22 90/70 (77) 97 03/28/20 19:19 104 03/28/20 19:15 106 26 99 03/28/20 19:00 94/54 03/28/20 19:00 107 29 94 03/28/20 18:45 97.4 106 29 94/54 (67) 90 03/28/20 18:38 106 57/49 03/28/20 18:30 106 39 100 03/28/20 18:25 107 29 57/49 (52) 90 03/28/20 18:02 108 29 100/69 (79) 98 03/28/20 18:00 63/54 03/28/20 18:00 108 30 63/54 (57) 93 03/28/20 17:30 107 30 88/75 (79) 93 03/28/20 17:02 108 28 100/69 (79) 98 03/28/20 17:00 100/69 03/28/20 16:48 119 43 100 03/28/20 16:06 105 25 104/65 (78) 98 03/28/20 16:03 112 03/28/20 16:00 104/65 03/28/20 16:00 100 03/28/20 16:00 Mechanical Ventilator 03/28/20 15:08 116 43 100 03/28/20 15:00 97.5 101 33 90/60 (70) 100 03/28/20 15:00 90/60 03/28/20 14:00 104/80 03/28/20 14:00 113 31 104/80 (88) 90 03/28/20 13:04 93 29 100 03/28/20 13:00 98 38 97/59 (72) 100 03/28/20 13:00 97/59 03/28/20 13:00 97/59 Intake and Output 03/28/20 03/29/20 19:00 07:00 Intake Total 3183.518 ml 2518.42 ml Output Total 460 ml 0 ml Balance 2723.518 ml 2518.42 ml IV Total 3183.518 ml 2518.42 ml Output Urine Total 60 ml 0 ml Stool Total 400 ml Laboratory Tests 03/29/20 04:30: White Blood Count 39.0*H, Red Blood Count 4.01L, Hemoglobin 11.7#L, Hematocrit 36.4#L, Mean Corpuscular Volume 91, Mean Corpuscular Hemoglobin 29.2, Mean Corpuscular Hemoglobin Concent 32.1, Red Cell Distribution Width 17.6H, Platelet Count 12#L, Mean Platelet Volume 14.2H, Neutrophils (%) (Auto) , Lymphocytes (%) (Auto) , Monocytes (%) (Auto) , Eosinophils (%) (Auto) , Basophils (%) (Auto) , Differential Total Cells Counted 100, Neutrophils % (Manual) 80H, Lymphocytes % (Manual) 3L, Monocytes % (Manual) 0L, Eosinophils % (Manual) 0, Basophils % (Manual) 0, Myelocytes % 1H, Band Neutrophils 16H, Nucleated Red Blood Cells 2, Platelet Estimate DecreasedL, Platelet Morphology Normal, Anisocytosis 2+, Prothrombin Time 18.9H, Prothromb Time International Ratio 1.8H, Sodium Level 147H, Potassium Level 3.3L, Chloride Level 110H, Carbon Dioxide Level 17L, Anion Gap 20H, Blood Urea Nitrogen 31H, Creatinine 2.4H, Estimat Glomerular Filtration Rate 21.3, Glucose Level 204H, Lactic Acid Level 9.30H, Calcium Level 7.3L, Total Bilirubin 12.7H, Direct Bilirubin 10.5H, Aspartate Amino Transf (AST/SGOT) 222H, Alanine Aminotransferase (ALT/SGPT) 95H, Alkaline Phosphatase 213H, Troponin I 0.077H, Total Protein 4.5L, Albumin 1.8L, Globulin 2.7, Album in/Globulin Ratio 0.7L, Cortisol AM Sample [Pending] 03/29/20 10:10: Lactic Acid Level 10.40H, Random Vancomycin Level 27.1 Height (Feet): 4 Height (Inches): 11.00 Weight (Pounds): 105 Objective cathexic woman with distended abdomen NCAT, (+) ETT, (+) OGT, (+) Jaundiced coarse BS RR abd less distended, not tense no edema Assessment/Plan Status: unchanged, deteriorating Assessment/Plan: Assessment - EtOH cirrhosis (negative hepatitis serologies) - EtOH Hepatitis - not candidate for steroids due to sepsis - Ascites - negative paracentesis for SBP - UTI - shock - shocked liver - lactic acidosis - worsening coagulopathy - PNA and hypoxia - dyspnea and respiratory failure - azotemia, pre-renal vs HRS - jaundice - Moribund Recommendations - Vent and ICU care - Pressors - abx - Trental - lactulose / xifaxan - d/c IVF with MVI - PPI - follow labs Nadine Childers MD Mar 29, 2020 12:29
[2020-03-29] MEDS: Sodium Bicarbonate 150 ML in D5W 1000ml 1,000 ML IV SCH ×2 (12:32→20:42)
[2020-03-29] MEDS: Dyna-Hex 2% Top Sol 2oz TOPIC SCH (20:00)
[2020-03-29] MEDS: Vasopressin 100 UNITS in NS 95 ML IV SCH (22:01)
[2020-03-30] VITALS (54 sets, daily range): BP systolic 32–119; BP diastolic 10–86
[2020-03-30] MEDS: Vasopressin 100 UNITS in NS 95 ML IV SCH (04:30)
[2020-03-30] MEDS: Norepinephrine Bitartrate 16 MG in Sodium Chloride 484 ML IV SCH ×4 (04:32→22:52)
[2020-03-30] MEDS: Phenylephrine 100 MG in D5W 240 ML IV SCH ×4 (04:32→22:52)
[2020-03-30 04:57] LABS: HEMATOCRIT 29.1 % (37.0-47.0); MEAN CORPUSCULAR VOLUME 86 FL (80-99); RED BLOOD COUNT 3.37 M/UL (4.20-5.40); RED CELL DISTRIBUTION WIDTH 16.7 % (11.6-14.8)
[2020-03-30 05:08] LABS: WHITE BLOOD COUNT 37.4 K/UL (4.8-10.8)
[2020-03-30 05:10] LABS: PLATELET COUNT 5 K/UL (150-450)
[2020-03-30 05:45] LABS: ALANINE AMINOTRANSFERASE 66 U/L (12-78); ALBUMIN 1.5 G/DL (3.4-5.0); ALBUMIN/GLOBULIN RATIO 0.5 (1.0-2.7); ALKALINE PHOSPHATASE 187 U/L (46-116); ASPARTATE AMINO TRANSFERASE 112 U/L (15-37); BLOOD UREA NITROGEN 30 mg/dL (7-18); CALCIUM 7.5 MG/DL (8.5-10.1); CARBON DIOXIDE 19 MMOL/L (21-32); CHLORIDE 106 MMOL/L (98-107); CREATININE 2.8 MG/DL (0.55-1.30); SODIUM 148 MMOL/L (136-145)
[2020-03-30 05:49] LABS: POTASSIUM 2.7 MMOL/L (3.5-5.1)
[2020-03-30 05:50] LABS: BILIRUBIN,DIRECT 10.4 MG/DL (0.0-0.3)
[2020-03-30] MEDS: Lactulose 20gm/30ml UDC ORAL SCH ×3 (06:09→21:30)
[2020-03-30] MEDS: Pantoprazole Inj IVP SCH (08:04)
[2020-03-30] MEDS: KCl 20mEq 100ml Premix IVPB SCH ×2 (08:04→10:17)
[2020-03-30] MEDS: Piperacillin/Tazobactam 3.375 GM in NS 110 ML IVPB SCH ×2 (08:05→20:51)
[2020-03-30] MEDS: Spironolactone 50mg tab ORAL SCH (08:05)
[2020-03-30] MEDS: Sodium Bicarbonate 150 ML in D5W 1000ml 1,000 ML IV SCH ×2 (08:44→18:45)
--- NOTE | 2020-03-30 11:53 | Infectious Diseases Prog Note ---
Assessment/Plan Assessment/Plan IMPRESSION: 1. UTI with E. coli. 2. Leukomoid reaction 3. 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 4. COPD. 5. Anemia. 6. Thrombocytopenia. 7. Hypokalemia. 8. Likely alcoholic hepatitis. 9. Cachexia. 10. Pneumonia/ atelectasis 11. cardiopulmonary arrest 12. renal failure 13. Lactic acidosis 14. hypokalemia 15. Shock 16. Encephalopathy RECOMMENDATION: Continue Zosyn & Vancomycin Prognosis seems to be poor Patient is DNR now. Subjective ROS Limited/Unobtainable: Yes Constitutional: Reports: other - Hypothermic Cardiovascular: Reports: other - n maximal dose off pressor Allergies: Coded Allergies: No Known Allergies (Unverified , 03/20/20) Objective Last 24 Hour Vital Signs Date Time Temp Pulse Resp B/P (MAP) Pulse Ox O2 Delivery O2 Flow Rate FiO2 03/30/20 11:00 104 36 50/20 (30) 86 03/30/20 11:00 50/03/30/20 11:00 104 32 100 03/30/20 10:30 100 31 50/22 (31) 87 03/30/20 10:00 108/20 03/30/20 10:00 97.5 93 26 108/20 (49) 86 03/30/20 09:30 98 25 83/25 (44) 85 03/30/20 09:00 105 18 100 03/30/20 09:00 111 39 40/25 (30) 84 03/30/20 09:00 42/19 03/30/20 08:30 111 40 59/29 (39) 87 03/30/20 08:05 53/31 03/30/20 08:00 Mechanical Ventilator 03/30/20 08:00 104 34 47/31 (36) 89 03/30/20 08:00 100 03/30/20 08:00 112 03/30/20 08:00 47/31 03/30/20 07:30 108 37 41/15 (24) 89 03/30/20 07:00 103 34 58/26 (37) 90 03/30/20 07:00 58/47 03/30/20 07:00 101 37 100 03/30/20 06:00 95 33 58/28 (38) 96 03/30/20 06:00 42/19 03/30/20 05:00 113/63 03/30/20 05:00 105 39 113/63 (80) 82 03/30/20 04:40 104 39 100 03/30/20 04:32 105 85/48 03/30/20 04:32 85/48 03/30/20 04:00 98.5 98 33 85/48 (60) 85 03/30/20 04:00 Mechanical Ventilator 03/30/20 04:00 84/25 03/30/20 04:00 109 03/30/20 04:00 100 03/30/20 03:13 105 24 100 03/30/20 03:00 106 38 106/15 (45) 89 03/30/20 03:00 85/48 03/30/20 02:00 67/17 03/30/20 02:00 105 38 61/18 (32) 90 03/30/20 01:00 104/33 03/30/20 01:00 104 39 60/18 (32) 92 03/30/20 00:33 109 41 100 03/30/20 00:00 99 03/30/20 00:00 100 03/30/20 00:00 65/17 03/30/20 00:00 97.5 104 38 65/17 (33) 90 03/30/20 00:00 Mechanical Ventilator 03/29/20 23:01 95 34 100 03/29/20 23:00 55/21 03/29/20 23:00 101 37 62/19 (33) 91 03/29/20 22:00 52/18 03/29/20 22:00 103 38 63/17 (32) 91 03/29/20 21:26 90 28 100 03/29/20 21:00 57/17 03/29/20 21:00 98 37 67/17 (34) 91 03/29/20 20:42 101 91/29 03/29/20 20:42 91/29 03/29/20 20:00 96 03/29/20 20:00 Mechanical Ventilator 03/29/20 20:00 100 03/29/20 19:00 101 36 91/29 (49) 92 03/29/20 19:00 91/03/29/20 18:54 93 35 100 03/29/20 18:30 104 37 94 03/29/20 18:00 59/20 03/29/20 18:00 115 42 59/20 (33) 98 03/29/20 17:43 69/15 03/29/20 17:30 104 38 69/15 (33) 93 03/29/20 17:06 106 42 100 03/29/20 17:00 105 39 92/24 (46) 96 03/29/20 17:00 92/24 03/29/20 16:30 103 37 69/22 (38) 94 03/29/20 16:00 100 03/29/20 16:00 61/17 03/29/20 16:00 97.2 104 37 61/17 (32) 95 03/29/20 16:00 Mechanical Ventilator 03/29/20 15:30 112 42 71/47 (55) 95 03/29/20 15:26 104 03/29/20 15:15 100 34 100 03/29/20 15:00 71/50 03/29/20 15:00 106 38 71/50 (57) 98 03/29/20 14:30 102 31 48/20 (29) 95 03/29/20 14:00 76/32 03/29/20 14:00 110 39 76/32 (47) 69 03/29/20 13:30 109 73/24 03/29/20 13:30 73/24 03/29/20 13:23 108 40 100 03/29/20 13:00 73/24 03/29/20 13:00 109 48 73/24 (40) 87 03/29/20 12:43 106/41 03/29/20 12:30 97.3 107 48 106/41 (62) 73 03/29/20 12:15 106 47 105/44 (64) 53 03/29/20 12:00 104 46 65/17 (33) 87 03/29/20 12:00 65/17 03/29/20 12:00 Mechanical Ventilator 03/29/20 12:00 100 03/29/20 12:00 105 Height (Feet): 4 Height (Inches): 11.00 Weight (Pounds): 105 HEENT: other - orally intubayed Respiratory/Chest: rhonchi - bilaterally, other - on ventilator Cardiovascular: tachycardia Abdomen: distended Extremities: other - generalized edema Neurologic/Psychiatric: other - comatose Microbiology Date/Time Source Procedure Growth Status 10/24/20 16:20 Sputum Gram Stain - Final Resulted 03/28/20 16:20 Sputum Sputum Culture Pending Resulted Laboratory Tests Test 03/30/20 04:06 White Blood Count 37.4 K/UL (4.8-10.8) *H Red Blood Count 3.37 M/UL (4.20-5.40) L Hemoglobin 10.0 G/DL (12.0-16.0) L Hematocrit 29.1 % (37.0-47.0) L Mean Corpuscular Volume 86 FL (80-99) Mean Corpuscular Hemoglobin 29.7 PG (27.0-31.0) Mean Corpuscular Hemoglobin Concent 34.4 G/DL (32.0-36.0) Red Cell Distribution Width 16.7 % (11.6-14.8) H Platelet Count 5 K/UL (150-450) #*L Mean Platelet Volume 9.5 FL (6.5-10.1) Neutrophils (%) (Auto) % (45.0-75.0) Lymphocytes (%) (Auto) % (20.0-45.0) Monocytes (%) (Auto) % (1.0-10.0) Eosinophils (%) (Auto) % (0.0-3.0) Basophils (%) (Auto) % (0.0-2.0) Differential Total Cells Counted 100 Neutrophils % (Manual) 82 % (45-75) H Lymphocytes % (Manual) 5 % (20-45) L Monocytes % (Manual) 3 % (1-10) Eosinophils % (Manual) 0 % (0-3) Basophils % (Manual) 0 % (0-2) Myelocytes % 2 % (0-0) H Band Neutrophils 8 % (0-8) Nucleated Red Blood Cells 1 /100 WBC Platelet Estimate Decreased L Platelet Morphology Normal Polychromasia 1+ Hypochromasia 1+ Anisocytosis 1+ Sodium Level 148 MMOL/L (136-145) H Potassium Level 2.7 MMOL/L (3.5-5.1) *L Chloride Level 106 MMOL/L (98-107) Carbon Dioxide Level 19 MMOL/L (21-32) L Blood Urea Nitrogen 30 mg/dL (7-18) H Creatinine 2.8 MG/DL (0.55-1.30) H Estimat Glomerular Filtration Rate 17.8 mL/min (>60) Glucose Level 242 MG/DL (74-106) H Calcium Level 7.5 MG/DL (8.5-10.1) L Total Bilirubin 13.0 MG/DL (0.2-1.0) H Direct Bilirubin 10.4 MG/DL (0.0-0.3) H Aspartate Amino Transf (AST/SGOT) 112 U/L (15-37) H Alanine Aminotransferase (ALT/SGPT) 66 U/L (12-78) Alkaline Phosphatase 187 U/L (46-116) H Total Protein 4.3 G/DL (6.4-8.2) L Albumin 1.5 G/DL (3.4-5.0) L Globulin 2.8 g/dL Albumin/Globulin Ratio 0.5 (1.0-2.7) L Random Vancomycin Level 23.8 ug/mL Current Medications Medications (Trade) Dose Ordered Sig/Joanan Route PRN Reason Start Time Stop Time Status Last Admin Dose Admin Amylase/Lipase/ Protease (Hallie TAYLOR 36,000 units cap) 1 ea WITH SNACKS PRN ORAL give with snacks 03/21/20 09:30 06/19/20 09:29 03/22/20 12:10 Chlorhexidine Gluconate (Roxanne-Hex 2%) 1 applic DAILY@1999 TOPIC 03/27/20 20:00 06/25/20 19:59 03/29/20 20:00 Dextrose (Dextrose 50%) 25 ml Q30M PRN IV Hypoglycemia 03/20/20 20:45 06/18/20 20:44 Dextrose (Dextrose 50%) 50 ml Q30M PRN IV Hypoglycemia 03/20/20 20:45 06/18/20 20:44 03/26/20 20:51 Lactulose (Cephulac) 30 gm EVERY 8 HOURS ORAL 03/25/20 14:00 04/24/20 13:59 03/30/20 06:09 Magnesium Hydroxide (Mom) 30 ml HSPRN PRN ORAL Constipation 03/20/20 20:45 04/19/20 20:44 Midodrine (Pro-Amatine) 5 mg EVERY 8 HOURS NG 03/28/20 14:00 06/19/20 09:59 03/30/20 06:09 Norepinephrine Bitartrate 16 mg/ Sodium Chloride 500 ml @ 0 mls/hr Q24H IV 03/27/20 16:30 03/30/20 16:29 03/30/20 04:32 Pantoprazole (Protonix) 40 mg DAILY IVP 03/28/20 17:00 04/27/20 16:59 03/30/20 08:04 Pentoxifylline (TRENtal) 400 mg THREE TIMES A DAY ORAL 03/23/20 22:00 06/21/20 21:59 03/27/20 17:08 Phenylephrine HCl 100 mg/Dextrose 250 ml @ 0 mls/hr Q24H IV 03/28/20 18:30 04/27/20 18:29 03/30/20 04:32 Piperacillin Sod/ Tazobactam Sod 3.375 gm/Sodium Chloride 110 ml @ 27.5 mls/hr Q12HR IVPB 03/26/20 14:00 04/02/20 13:59 03/30/20 08:05 Potassium Chloride 100 ml @ 50 mls/hr Q2H IVPB 03/30/20 08:00 03/30/20 11:59 03/30/20 10:17 Potassium Chloride 100 ml @ 100 mls/hr ONCE ONCE IVPB 03/30/20 12:00 03/30/20 12:59 Rifaximin (Xifaxan) 550 mg EVERY 12 HOURS ORAL 03/22/20 21:00 04/03/20 23:59 03/30/20 08:04 Sodium Bicarbonate 150 ml/Dextrose 1,150 ml @ 100 mls/hr [id number] IV 03/29/20 12:30 04/28/20 12:29 03/30/20 08:44 Spironolactone (Aldactone) 50 mg DAILY ORAL 03/22/20 09:00 04/21/20 08:59 03/28/20 09:23 Vancomycin HCl ([facility] pharmacy to dose) 1 ea DAILY PRN MISC Per rx protocol 03/27/20 11:15 04/26/20 11:14 Vasopressin 100 units/Sodium Chloride 100 ml @ 0 mls/hr Q24H IV 03/28/20 20:15 03/31/20 20:14 03/30/20 04:30 Thom Diaz MD Mar 30, 2020 11:53
--- NOTE | 2020-03-30 12:20 | General Progress Note ---
Subjective Allergies: Coded Allergies: No Known Allergies (Unverified , 03/20/20) Subjective doing poorly intubated Objective Last 24 Hour Vital Signs Date Time Temp Pulse Resp B/P (MAP) Pulse Ox O2 Delivery O2 Flow Rate FiO2 03/30/20 12:00 100 03/30/20 12:00 101 35 42/19 (27) 91 03/30/20 12:00 Mechanical Ventilator 03/30/20 12:00 97 03/30/20 11:48 96 42/19 03/30/20 11:30 102 32 58/42 (47) 86 03/30/20 11:00 104 36 50/20 (30) 86 03/30/20 11:00 50/20 03/30/20 11:00 104 32 100 03/30/20 10:30 100 31 50/22 (31) 87 03/30/20 10:00 108/20 03/30/20 10:00 97.5 93 26 108/20 (49) 86 03/30/20 09:30 98 25 83/25 (44) 85 03/30/20 09:00 105 18 100 03/30/20 09:00 111 39 40/25 (30) 84 03/30/20 09:00 42/19 03/30/20 08:30 111 40 59/29 (39) 87 03/30/20 08:05 53/31 03/30/20 08:00 Mechanical Ventilator 03/30/20 08:00 104 34 47/31 (36) 89 03/30/20 08:00 100 03/30/20 08:00 112 03/30/20 08:00 47/31 03/30/20 07:30 108 37 41/15 (24) 89 03/30/20 07:00 103 34 58/26 (37) 90 03/30/20 07:00 58/47 03/30/20 07:00 101 37 100 03/30/20 06:00 95 33 58/28 (38) 96 03/30/20 06:00 42/19 03/30/20 05:00 113/63 03/30/20 05:00 105 39 113/63 (80) 82 03/30/20 04:40 104 39 100 03/30/20 04:32 105 85/48 03/30/20 04:32 85/48 03/30/20 04:00 98.5 98 33 85/48 (60) 85 03/30/20 04:00 Mechanical Ventilator 03/30/20 04:00 84/25 03/30/20 04:00 109 03/30/20 04:00 100 03/30/20 03:13 105 24 100 03/30/20 03:00 106 38 106/15 (45) 89 03/30/20 03:00 85/48 03/30/20 02:00 67/17 03/30/20 02:00 105 38 61/18 (32) 90 03/30/20 01:00 104/33 03/30/20 01:00 104 39 60/18 (32) 92 03/30/20 00:33 109 41 100 03/30/20 00:00 99 03/30/20 00:00 100 03/30/20 00:00 65/17 03/30/20 00:00 97.5 104 38 65/17 (33) 90 03/30/20 00:00 Mechanical Ventilator 03/29/20 23:01 95 34 100 03/29/20 23:00 55/21 03/29/20 23:00 101 37 62/19 (33) 91 03/29/20 22:00 52/18 03/29/20 22:00 103 38 63/17 (32) 91 03/29/20 21:26 90 28 100 03/29/20 21:00 57/17 03/29/20 21:00 98 37 67/17 (34) 91 03/29/20 20:42 101 91/03/29/20 20:42 91/29 03/29/20 20:00 96 03/29/20 20:00 Mechanical Ventilator 03/29/20 20:00 100 03/29/20 19:00 101 36 91/29 (49) 92 03/29/20 19:00 91/03/29/20 18:54 93 35 100 03/29/20 18:30 104 37 94 03/29/20 18:00 59/20 03/29/20 18:00 115 42 59/20 (33) 98 03/29/20 17:43 69/15 03/29/20 17:30 104 38 69/15 (33) 93 03/29/20 17:06 106 42 100 03/29/20 17:00 105 39 92/24 (46) 96 03/29/20 17:00 92/24 03/29/20 16:30 103 37 69/22 (38) 94 03/29/20 16:00 100 03/29/20 16:00 61/17 03/29/20 16:00 97.2 104 37 61/17 (32) 95 03/29/20 16:00 Mechanical Ventilator 03/29/20 15:30 112 42 71/47 (55) 95 03/29/20 15:26 104 03/29/20 15:15 100 34 100 03/29/20 15:00 71/50 03/29/20 15:00 106 38 71/50 (57) 98 03/29/20 14:30 102 31 48/20 (29) 95 03/29/20 14:00 76/32 03/29/20 14:00 110 39 76/32 (47) 69 03/29/20 13:30 109 73/24 03/29/20 13:30 73/24 03/29/20 13:23 108 40 100 03/29/20 13:00 73/24 03/29/20 13:00 109 48 73/24 (40) 87 03/29/20 12:43 106/41 03/29/20 12:30 97.3 107 48 106/41 (62) 73 Intake and Output 03/29/20 03/30/20 19:00 07:00 Intake Total 2162.08 ml 2071.985 ml Output Total 30 ml 20 ml Balance 2132.08 ml 2051.985 ml Free Water 180 ml IV Total 1982.08 ml 2071.985 ml Output Urine Total 30 ml 20 ml Laboratory Tests 03/30/20 04:06: White Blood Count 37.4*H, Red Blood Count 3.37L, Hemoglobin 10.0L, Hematocrit 29.1L, Mean Corpuscular Volume 86, Mean Corpuscular Hemoglobin 29.7, Mean Corpuscular Hemoglobin Concent 34.4, Red Cell Distribution Width 16.7H, Platelet Count 5#*L, Mean Platelet Volume 9.5, Neutrophils (%) (Auto) , Lymphocytes (%) (Auto) , Monocytes (%) (Auto) , Eosinophils (%) (Auto) , Basophils (%) (Auto) , Differential Total Cells Counted 100, Neutrophils % (Manual) 82H, Lymphocytes % (Manual) 5L, Monocytes % (Manual) 3, Eosinophils % (Manual) 0, Basophils % (Manual) 0, Myelocytes % 2H, Band Neutrophils 8, Nucleated Red Blood Cells 1, Platelet Estimate DecreasedL, Platelet Morphology Normal, Polychromasia 1+, Hypochromasia 1+, Anisocytosis 1+, Sodium Level 148H, Potassium Level 2.7*L, Chloride Level 106, Carbon Dioxide Level 19L, Blood Urea Nitrogen 30H, Creatinine 2.8H, Estimat Glomerular Filtration Rate 17.8, Glucose Level 242H, Calcium Level 7.5L, Total Bilirubin 13.0H, Direct Bilirubin 10.4H, Aspartate Amino Transf (AST/SGOT) 112H, Alanine Aminotransferase (ALT/SGPT) 66, Alkaline Phosphatase 187H, Total Protein 4.3L, Albumin 1.5L, Globulin 2.8, Albumin/Globulin Ratio 0.5L, Random Vancomycin Level 23.8 Height (Feet): 4 Height (Inches): 11.00 Weight (Pounds): 105 Cardiovascular: other - distant Respiratory/Chest: rhonchi - bilaterally Edema: 4+ Generalized Assessment/Plan Problem List: (1) Acute renal failure Assessment & Plan: no sig change ICD Codes: N17.9 - Acute kidney failure, unspecified SNOMED: 03775844 Qualifiers: Qualified Codes: N17.9 - Acute kidney failure, unspecified (2) Cirrhosis ICD Codes: K74.60 - Unspecified cirrhosis of liver SNOMED: 63349643 Qualifiers: Qualified Codes: K70.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 coli UTI ICD Codes: N39.0 - Urinary tract infection, site not specified; B96.20 - Unspecified Escherichia coli [E. coli] as the cause of diseases classified elsewhere SNOMED: 198148074 (8) Hypoglycemia ICD Codes: E16.2 - Hypoglycemia, unspecified SNOMED: 787260776 (9) Thrombocytopenia ICD Codes: D69.6 - Thrombocytopenia, unspecified SNOMED: 340033759 (10) ARF (acute renal failure) ICD Codes: N17.9 - Acute kidney failure, unspecified SNOMED: 05961173 Status: unchanged, deteriorating Assessment/Plan: abxs keep on on pressors follow labs Pulm and cardiology F/U Discussed with RN DNR now IV D5 with bicarb Replete K total time spent 35 min Erick Diaz MD Mar 30, 2020 12:20
[2020-03-30] MEDS ORDERED: NS 275ml ONE (18:12)
[2020-03-30] MEDS ORDERED: Tubing IV Secondary IV ONE (18:12)
--- NOTE | 2020-03-30 18:49 | Cardiology Progress Note ---
Assessment/Plan Assessment/Plan 1. Cardiopulmonary arrest, status post 19 minutes of advanced and basic cardiac life support. 2. Hypotension / septic shock 3. Leukocytosis, leukemoid reaction. 4. Coagulopathy. 5. Thrombocytopenia. 6. Cirrhosis. 7. Perihilar infiltrate. 8. Possible chronic pancreatitis with calcification on CT. 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 10. Gas and fluid collection adjacent to the vaginal wall. 11. Lactic acidosis. 12. Hepatic encephalopathy 13. metabolic acidosis 14. LV systolic dysfunction 15. coagulopathy 16. thrombocytopenia s/p prbc tx iv abdx empiric still with diarreha on lctulose vent support bp low despite 3 pressor at max doses tele reviewed sinus echo noted ef 40% with swma lft abn lactic acidosis is worse o0n max osyugen with peep of 5 mentation worse prognois is poor pt remain critical and at risk of dying continue supportive measures but now dnr per rn d/w rn etiology of gas noted in the pelvis on ct?? plt are lower cortisol level not avialberl nothing more to offer Subjective ROS Limited/Unobtainable: Yes Objective Last 24 Hour Vital Signs Date Time Temp Pulse Resp B/P (MAP) Pulse Ox O2 Delivery O2 Flow Rate FiO2 03/30/20 18:30 94 35 34/22 (26) 84 03/30/20 18:27 92 39/12 03/30/20 18:00 39/12 03/30/20 17:59 92 20 64/30 (41) 94 03/30/20 17:31 103 22 47/39 (42) 94 03/30/20 17:01 102 19 50/31 (37) 94 03/30/20 17:00 102 21 100 03/30/20 16:30 103 19 85/56 (66) 98 03/30/20 16:01 102 25 65/36 (46) 98 03/30/20 16:01 100 03/30/20 16:00 Mechanical Ventilator 03/30/20 16:00 106 03/30/20 15:30 97.5 89 24 33/15 (21) 88 03/30/20 15:20 60 17 100 03/30/20 15:03 97.5 104 22 115/76 (89) 88 03/30/20 15:00 99 31 100 03/30/20 15:00 115/76 03/30/20 14:00 97.5 100 30 95/79 (84) 88 03/30/20 14:00 47/31 03/30/20 14:00 97.7 103 30 41/19 (26) 90 03/30/20 13:33 61/35 03/30/20 13:30 102 27 95/79 (84) 84 03/30/20 13:30 40/26 03/30/20 13:00 111/71 03/30/20 13:00 99 36 100 03/30/20 13:00 102 37 61/35 (44) 97 03/30/20 12:48 61/35 03/30/20 12:30 99 30 110/86 (94) 86 03/30/20 12:00 100 03/30/20 12:00 101 35 42/19 (27) 91 03/30/20 12:00 110/86 03/30/20 12:00 Mechanical Ventilator 03/30/20 12:00 97 03/30/20 11:48 96 42/19 03/30/20 11:30 102 32 58/42 (47) 86 03/30/20 11:00 104 36 50/20 (30) 86 03/30/20 11:00 50/20 03/30/20 11:00 104 32 100 03/30/20 10:30 100 31 50/22 (31) 87 03/30/20 10:00 108/20 03/30/20 10:00 97.5 93 26 108/20 (49) 86 03/30/20 09:30 98 25 83/25 (44) 85 03/30/20 09:00 105 18 100 03/30/20 09:00 111 39 40/25 (30) 84 03/30/20 09:00 42/19 03/30/20 08:30 111 40 59/29 (39) 87 03/30/20 08:05 53/31 03/30/20 08:00 Mechanical Ventilator 03/30/20 08:00 104 34 47/31 (36) 89 03/30/20 08:00 100 03/30/20 08:00 112 03/30/20 08:00 47/31 03/30/20 07:30 108 37 41/15 (24) 89 03/30/20 07:00 103 34 58/26 (37) 90 03/30/20 07:00 58/47 03/30/20 07:00 101 37 100 03/30/20 06:00 95 33 58/28 (38) 96 03/30/20 06:00 42/19 03/30/20 05:00 113/63 03/30/20 05:00 105 39 113/63 (80) 82 03/30/20 04:40 104 39 100 03/30/20 04:32 105 85/48 03/30/20 04:32 85/48 03/30/20 04:00 98.5 98 33 85/48 (60) 85 03/30/20 04:00 Mechanical Ventilator 03/30/20 04:00 84/25 03/30/20 04:00 109 03/30/20 04:00 100 03/30/20 03:13 105 24 100 03/30/20 03:00 106 38 106/15 (45) 89 03/30/20 03:00 85/48 03/30/20 02:00 67/17 03/30/20 02:00 105 38 61/18 (32) 90 03/30/20 01:00 104/33 03/30/20 01:00 104 39 60/18 (32) 92 03/30/20 00:33 109 41 100 03/30/20 00:00 99 03/30/20 00:00 100 03/30/20 00:00 65/17 03/30/20 00:00 97.5 104 38 65/17 (33) 90 03/30/20 00:00 Mechanical Ventilator 03/29/20 23:01 95 34 100 03/29/20 23:00 55/21 03/29/20 23:00 101 37 62/19 (33) 91 03/29/20 22:00 52/18 03/29/20 22:00 103 38 63/17 (32) 91 03/29/20 21:26 90 28 100 03/29/20 21:00 57/17 03/29/20 21:00 98 37 67/17 (34) 91 03/29/20 20:42 101 91/29 03/29/20 20:42 91/29 03/29/20 20:00 96 03/29/20 20:00 Mechanical Ventilator 03/29/20 20:00 100 03/29/20 19:00 101 36 91/29 (49) 92 03/29/20 19:00 9129 03/29/20 18:54 93 35 100 General Appearance: on vent, patient on isolation Cardiovascular: normal rate Respiratory/Chest: rhonchi - bilaterally Abdomen: soft Extremities: moderate edema, other - cool to touch Intake and Output 03/29/20 03/30/20 19:00 07:00 Intake Total 2162.08 ml 2071.985 ml Output Total 30 ml 20 ml Balance 2132.08 ml 2051.985 ml Free Water 180 ml IV Total 1982.08 ml 2071.985 ml Output Urine Total 30 ml 20 ml Laboratory Tests Test 03/30/20 04:06 White Blood Count 37.4 K/UL (4.8-10.8) *H Red Blood Count 3.37 M/UL (4.20-5.40) L Hemoglobin 10.0 G/DL (12.0-16.0) L Hematocrit 29.1 % (37.0-47.0) L Mean Corpuscular Volume 86 FL (80-99) Mean Corpuscular Hemoglobin 29.7 PG (27.0-31.0) Mean Corpuscular Hemoglobin Concent 34.4 G/DL (32.0-36.0) Red Cell Distribution Width 16.7 % (11.6-14.8) H Platelet Count 5 K/UL (150-450) #*L Mean Platelet Volume 9.5 FL (6.5-10.1) Neutrophils (%) (Auto) % (45.0-75.0) Lymphocytes (%) (Auto) % (20.0-45.0) Monocytes (%) (Auto) % (1.0-10.0) Eosinophils (%) (Auto) % (0.0-3.0) Basophils (%) (Auto) % (0.0-2.0) Differential Total Cells Counted 100 Neutrophils % (Manual) 82 % (45-75) H Lymphocytes % (Manual) 5 % (20-45) L Monocytes % (Manual) 3 % (1-10) Eosinophils % (Manual) 0 % (0-3) Basophils % (Manual) 0 % (0-2) Myelocytes % 2 % (0-0) H Band Neutrophils 8 % (0-8) Nucleated Red Blood Cells 1 /100 WBC Platelet Estimate Decreased L Platelet Morphology Normal Polychromasia 1+ Hypochromasia 1+ Anisocytosis 1+ Sodium Level 148 MMOL/L (136-145) H Potassium Level 2.7 MMOL/L (3.5-5.1) *L Chloride Level 106 MMOL/L (98-107) Carbon Dioxide Level 19 MMOL/L (21-32) L Blood Urea Nitrogen 30 mg/dL (7-18) H Creatinine 2.8 MG/DL (0.55-1.30) H Estimat Glomerular Filtration Rate 17.8 mL/min (>60) Glucose Level 242 MG/DL (74-106) H Calcium Level 7.5 MG/DL (8.5-10.1) L Total Bilirubin 13.0 MG/DL (0.2-1.0) H Direct Bilirubin 10.4 MG/DL (0.0-0.3) H Aspartate Amino Transf (AST/SGOT) 112 U/L (15-37) H Alanine Aminotransferase (ALT/SGPT) 66 U/L (12-78) Alkaline Phosphatase 187 U/L (46-116) H Total Protein 4.3 G/DL (6.4-8.2) L Albumin 1.5 G/DL (3.4-5.0) L Globulin 2.8 g/dL Albumin/Globulin Ratio 0.5 (1.0-2.7) L Random Vancomycin Level 23.8 ug/mL Microbiology Date/Time Source Procedure Growth Status 03/28/20 16:20 Sputum Gram Stain - Final Resulted 03/28/20 16:20 Sputum Sputum Culture Pending Resulted Curtis Worley MD Mar 30, 2020 18:49
[2020-03-30] MEDS: Dyna-Hex 2% Top Sol 2oz TOPIC SCH (20:51)
--- NOTE | 2020-03-30 21:53 | General Progress Note ---
Subjective Allergies: Coded Allergies: No Known Allergies (Unverified , 03/20/20) Subjective above noted seen in ICU doing poorly on max pressors d/w RN, poor urine output Objective Last 24 Hour Vital Signs Date Time Temp Pulse Resp B/P (MAP) Pulse Ox O2 Delivery O2 Flow Rate FiO2 03/30/20 20:29 99 20 100 03/30/20 19:00 119/63 03/30/20 19:00 102 20 119/63 (81) 77 03/30/20 18:50 45/16 03/30/20 18:30 94 35 34/22 (26) 84 03/30/20 18:27 92 39/12 03/30/20 18:00 39/12 03/30/20 18:00 39/12 03/30/20 17:59 92 20 64/30 (41) 94 03/30/20 17:31 103 22 47/39 (42) 94 03/30/20 17:01 102 19 50/31 (37) 94 03/30/20 17:00 50/31 03/30/20 17:00 102 21 100 03/30/20 16:30 103 19 85/56 (66) 98 03/30/20 16:01 102 25 65/36 (46) 98 03/30/20 16:01 100 03/30/20 16:00 Mechanical Ventilator 03/30/20 16:00 106 03/30/20 16:00 85/56 03/30/20 15:30 97.5 89 24 33/15 (21) 88 03/30/20 15:20 60 17 100 03/30/20 15:03 97.5 104 22 115/76 (89) 88 03/30/20 15:00 99 31 100 03/30/20 15:00 115/76 03/30/20 14:00 97.5 100 30 95/79 (84) 88 03/30/20 14:00 47/31 03/30/20 14:00 97.7 103 30 41/19 (26) 90 03/30/20 13:33 61/35 03/30/20 13:30 102 27 95/79 (84) 84 03/30/20 13:30 40/26 03/30/20 13:00 111/71 03/30/20 13:00 99 36 100 03/30/20 13:00 102 37 61/35 (44) 97 03/30/20 12:48 61/35 03/30/20 12:30 99 30 110/86 (94) 86 03/30/20 12:00 100 03/30/20 12:00 101 35 42/19 (27) 91 03/30/20 12:00 110/86 03/30/20 12:00 Mechanical Ventilator 03/30/20 12:00 97 03/30/20 11:48 96 42/19 03/30/20 11:30 102 32 58/42 (47) 86 03/30/20 11:00 104 36 50/20 (30) 86 03/30/20 11:00 50/20 03/30/20 11:00 104 32 100 03/30/20 10:30 100 31 50/22 (31) 87 03/30/20 10:00 108/20 03/30/20 10:00 97.5 93 26 108/20 (49) 86 03/30/20 09:30 98 25 83/25 (44) 85 03/30/20 09:00 105 18 100 03/30/20 09:00 111 39 40/25 (30) 84 03/30/20 09:00 42/19 03/30/20 08:30 111 40 59/29 (39) 87 03/30/20 08:05 53/31 03/30/20 08:00 Mechanical Ventilator 03/30/20 08:00 104 34 47/31 (36) 89 03/30/20 08:00 100 03/30/20 08:00 112 03/30/20 08:00 47/31 03/30/20 07:30 108 37 41/15 (24) 89 03/30/20 07:00 103 34 58/26 (37) 90 03/30/20 07:00 58/47 03/30/20 07:00 101 37 100 03/30/20 06:00 95 33 58/28 (38) 96 03/30/20 06:00 42/19 03/30/20 05:00 113/63 03/30/20 05:00 105 39 113/63 (80) 82 03/30/20 04:40 104 39 100 03/30/20 04:32 105 85/48 03/30/20 04:32 85/48 03/30/20 04:00 98.5 98 33 85/48 (60) 85 03/30/20 04:00 Mechanical Ventilator 03/30/20 04:00 84/25 03/30/20 04:00 109 03/30/20 04:00 100 03/30/20 03:13 105 24 100 03/30/20 03:00 106 38 106/15 (45) 89 03/30/20 03:00 85/48 03/30/20 02:00 67/17 03/30/20 02:00 105 38 61/18 (32) 90 03/30/20 01:00 104/33 03/30/20 01:00 104 39 60/18 (32) 92 03/30/20 00:33 109 41 100 03/30/20 00:00 99 03/30/20 00:00 100 03/30/20 00:00 65/17 03/30/20 00:00 97.5 104 38 65/17 (33) 90 03/30/20 00:00 Mechanical Ventilator 03/29/20 23:01 95 34 100 03/29/20 23:00 55/21 03/29/20 23:00 101 37 62/19 (33) 91 03/29/20 22:00 52/18 03/29/20 22:00 103 38 63/17 (32) 91 Intake and Output 03/29/20 03/30/20 19:00 07:00 Intake Total 2162.08 ml 2071.985 ml Output Total 30 ml 20 ml Balance 2132.08 ml 2051.985 ml Free Water 180 ml IV Total 1982.08 ml 2071.985 ml Output Urine Total 30 ml 20 ml Laboratory Tests 03/30/20 04:06: White Blood Count 37.4*H, Red Blood Count 3.37L, Hemoglobin 10.0L, Hematocrit 29.1L, Mean Corpuscular Volume 86, Mean Corpuscular Hemoglobin 29.7, Mean Corpuscular Hemoglobin Concent 34.4, Red Cell Distribution Width 16.7H, Platelet Count 5#*L, Mean Platelet Volume 9.5, Neutrophils (%) (Auto) , Lymphocytes (%) (Auto) , Monocytes (%) (Auto) , Eosinophils (%) (Auto) , Basophils (%) (Auto) , Differential Total Cells Counted 100, Neutrophils % (Manual) 82H, Lymphocytes % (Manual) 5L, Monocytes % (Manual) 3, Eosinophils % (Manual) 0, Basophils % (Manual) 0, Myelocytes % 2H, Band Neutrophils 8, Nucleated Red Blood Cells 1, Platelet Estimate DecreasedL, Platelet Morphology Normal, Polychromasia 1+, Hypochromasia 1+, Anisocytosis 1+, Sodium Level 148H, Potassium Level 2.7*L, Chloride Level 106, Carbon Dioxide Level 19L, Blood Urea Nitrogen 30H, Creatinine 2.8H, Estimat Glomerular Filtration Rate 17.8, Glucose Level 242H, Calcium Level 7.5L, Total Bilirubin 13.0H, Direct Bilirubin 10.4H, Aspartate Amino Transf (AST/SGOT) 112H, Alanine Aminotransferase (ALT/SGPT) 66, Alkaline Phosphatase 187H, Total Protein 4.3L, Albumin 1.5L, Globulin 2.8, Albumin/Globulin Ratio 0.5L, Random Vancomycin Level 23.8 Height (Feet): 4 Height (Inches): 11.00 Weight (Pounds): 105 Objective cathexic woman with distended abdomen NCAT, (+) ETT, (+) OGT, (+) Jaundiced coarse BS RR abd less distended, not tense no edema Assessment/Plan Status: unchanged, deteriorating Assessment/Plan: Assessment - EtOH cirrhosis (negative hepatitis serologies) - EtOH Hepatitis - not candidate for steroids due to sepsis - Ascites - negative paracentesis for SBP - UTI - thrombocytopenia - platelets ordered - shock - shocked liver - lactic acidosis - worsening coagulopathy - PNA and hypoxia - dyspnea and respiratory failure - azotemia, pre-renal vs HRS - jaundice - Moribund Recommendations - Vent and ICU care - Pressors - abx - platelet transfusion prn - Trental - lactulose / xifaxan - d/c IVF with MVI - PPI - follow labs Nadine Childers MD Mar 30, 2020 21:53
[2020-03-30] MEDS ORDERED: Norepinephrine Bitartrate 16 MG in Sodium Chloride 484 ML IV SCH (22:00)
[2020-03-31] VITALS (47 sets, daily range): BP systolic 30–84; BP diastolic 11–55
[2020-03-31] MEDS: Lactulose 20gm/30ml UDC ORAL SCH ×3 (05:48→20:43)
[2020-03-31] MEDS: Vasopressin 100 UNITS in NS 95 ML IV SCH (05:51)
[2020-03-31] MEDS: Sodium Bicarbonate 150 ML in D5W 1000ml 1,000 ML IV SCH (06:01)
[2020-03-31] MEDS: Phenylephrine 100 MG in D5W 240 ML IV SCH ×2 (06:01→12:37)
[2020-03-31] MEDS ORDERED: Vancomycin 1gm/D5W 275ml IVPB SCH ×4 (07:00→09:00)
[2020-03-31 07:13] LABS: ALBUMIN 1.3 G/DL (3.4-5.0); ALBUMIN/GLOBULIN RATIO 0.4 (1.0-2.7); BILIRUBIN,TOTAL 13.9 MG/DL (0.2-1.0); CREATININE 2.4 MG/DL (0.55-1.30); POTASSIUM 3.1 MMOL/L (3.5-5.1)
--- NOTE | 2020-03-31 08:46 | General Progress Note ---
Subjective Allergies: Coded Allergies: No Known Allergies (Unverified , 03/20/20) Subjective above noted d/w RN doing poorly on max pressors SBP 44 at time of visit poor urine output orange/red tinge color to stools Objective Last 24 Hour Vital Signs Date Time Temp Pulse Resp B/P (MAP) Pulse Ox O2 Delivery O2 Flow Rate FiO2 03/31/20 07:21 92 20 100 03/31/20 07:21 90 20 94 Mechanical Ventilator 100 03/31/20 07:00 88 20 40/20 (27) 81 03/31/20 06:30 86 20 45/20 (28) 70 03/31/20 06:01 81 60/30 03/31/20 06:00 85 20 41/11 (21) 03/31/20 05:30 40 50/20 (30) 03/31/20 05:03 94 20 100 03/31/20 05:00 92 17 46/20 (29) 60 03/31/20 05:00 56/40 03/31/20 04:30 86 20 50/20 (30) 92 03/31/20 04:00 Mechanical Ventilator 03/31/20 04:00 88 03/31/20 04:00 97.5 44 9 84/55 (65) 03/31/20 04:00 100 03/31/20 04:00 50/30 03/31/20 03:30 89 20 53/33 (40) 03/31/20 03:22 92 20 100 03/31/20 03:00 86 20 34/19 (24) 03/31/20 03:00 34/19 03/31/20 02:30 93 23 34/13 (20) 86 03/31/20 02:00 79/53 03/31/20 02:00 86 20 64 03/31/20 01:30 97 20 69/42 (51) 03/31/20 01:00 84 20 41/24 (30) 70 03/31/20 01:00 41/24 03/31/20 00:30 91 20 45/34 (38) 56 03/31/20 00:30 92 20 100 03/31/20 00:00 Mechanical Ventilator 03/31/20 00:00 94 20 49/31 (37) 03/31/20 00:00 45/35 03/31/20 00:00 97.5 94 20 49/31 (37) 60 03/31/20 00:00 100 03/31/20 00:00 87 03/30/20 23:56 92 20 87/47 (60) 03/30/20 23:54 93 20 100 03/30/20 23:30 92 20 60 03/30/20 23:00 90 20 40/30 (33) 60 03/30/20 22:52 119/63 03/30/20 22:52 99 119/63 03/30/20 22:30 96 20 103/39 (60) 78 03/30/20 22:00 91 20 61/34 (43) 76 03/30/20 22:00 61/34 03/30/20 21:30 104 19 41/31 (34) 03/30/20 21:00 96 23 47/31 (36) 78 03/30/20 21:00 29/15 03/30/20 20:30 99 28 47/28 (34) 69 03/30/20 20:29 99 20 100 03/30/20 20:00 100 03/30/20 20:00 Mechanical Ventilator 03/30/20 20:00 96 03/30/20 20:00 36/10 03/30/20 20:00 97.0 106 20 36/10 (19) 03/30/20 19:41 94 22 100 03/30/20 19:30 100 21 32/15 (21) 79 03/30/20 19:00 119/63 03/30/20 19:00 102 20 119/63 (81) 77 03/30/20 18:50 45/16 03/30/20 18:30 94 35 34/22 (26) 84 03/30/20 18:27 92 39/12 03/30/20 18:00 39/12 03/30/20 18:00 39/12 03/30/20 17:59 92 20 64/30 (41) 94 03/30/20 17:31 103 22 47/39 (42) 94 03/30/20 17:01 102 19 50/31 (37) 94 03/30/20 17:00 50/31 03/30/20 17:00 102 21 100 03/30/20 16:30 103 19 85/56 (66) 98 03/30/20 16:01 102 25 65/36 (46) 98 03/30/20 16:01 100 03/30/20 16:00 Mechanical Ventilator 03/30/20 16:00 106 03/30/20 16:00 85/56 03/30/20 15:30 97.5 89 24 33/15 (21) 88 03/30/20 15:20 60 17 100 03/30/20 15:03 97.5 104 22 115/76 (89) 88 03/30/20 15:00 99 31 100 03/30/20 15:00 115/76 03/30/20 14:00 97.5 100 30 95/79 (84) 88 03/30/20 14:00 47/31 03/30/20 14:00 97.7 103 30 41/19 (26) 90 03/30/20 13:33 61/35 03/30/20 13:30 102 27 95/79 (84) 84 03/30/20 13:30 40/26 03/30/20 13:00 111/71 03/30/20 13:00 99 36 100 03/30/20 13:00 102 37 61/35 (44) 97 03/30/20 12:48 61/35 03/30/20 12:30 99 30 110/86 (94) 86 03/30/20 12:00 100 03/30/20 12:00 101 35 42/19 (27) 91 03/30/20 12:00 110/86 03/30/20 12:00 Mechanical Ventilator 03/30/20 12:00 97 03/30/20 11:48 96 42/19 03/30/20 11:30 102 32 58/42 (47) 86 03/30/20 11:00 104 36 50/20 (30) 86 03/30/20 11:00 50/20 03/30/20 11:00 104 32 100 03/30/20 10:30 100 31 50/22 (31) 87 03/30/20 10:00 108/20 03/30/20 10:00 97.5 93 26 108/20 (49) 86 03/30/20 09:30 98 25 83/25 (44) 85 03/30/20 09:00 105 18 100 03/30/20 09:00 111 39 40/25 (30) 84 03/30/20 09:00 42/19 Intake and Output 03/30/20 03/31/20 19:00 07:00 Intake Total 2081.10 ml 2891.75 ml Output Total 1020 ml 25 ml Balance 1061.10 ml 2866.75 ml IV Total 2081.10 ml 1991.75 ml Blood Product 900 ml Output Urine Total 20 ml 25 ml Stool Total 1000 ml # Bowel Movements 100 Laboratory Tests 03/31/20 04:00: Sodium Level 139, Potassium Level 3.1L, Chloride Level 102, Carbon Dioxide Level 21, Anion Gap 16H, Blood Urea Nitrogen 29H, Creatinine 2.4H, Estimat Glomerular Filtration Rate 21.3, Glucose Level 242H, Calcium Level 7.0L, Total Bilirubin 13.9H, Direct Bilirubin 11.0H, Aspartate Amino Transf (AST/SGOT) 61H, Alanine Aminotransferase (ALT/SGPT) 51, Alkaline Phosphatase 167H, Total Protein 4.4L, Albumin 1.3L, Globulin 3.1, Albumin/Globulin Ratio 0.4L, Random Vancomycin Level 14.7 Height (Feet): 4 Height (Inches): 11.00 Weight (Pounds): 105 Objective cathexic woman with distended abdomen NCAT, (+) ETT, (+) OGT, (+) Jaundiced (+) ronchi RR abd distended (+) edema all ext Assessment/Plan Status: unchanged, deteriorating Assessment/Plan: Assessment - EtOH cirrhosis (negative hepatitis serologies) - EtOH Hepatitis - not candidate for steroids due to sepsis - Ascites - negative paracentesis for SBP - UTI - thrombocytopenia - improved c/t yesterday - will transfuse again, given blood in stools and declining H&H - shock - shocked liver - lactic acidosis - worsening coagulopathy - improved c/t yesterday - will transfuse 1 unit FFP given blood in stools and declining H&H - PNA and hypoxia - dyspnea and respiratory failure - azotemia, pre-renal vs HRS - jaundice - Moribund Recommendations - Vent and ICU care - Pressors - abx - platelet transfusion and FFP today - Trental on hold - cannot be crushed and given via NGT - lactulose / xifaxan - check CBC again tonight - may need transfusion - PPI - follow labs Nadine Childers MD Mar 31, 2020 08:46
[2020-03-31] MEDS: Spironolactone 50mg tab ORAL SCH (09:00)
[2020-03-31] MEDS: Pantoprazole Inj IVP SCH (09:31)
[2020-03-31] MEDS: Piperacillin/Tazobactam 3.375 GM in NS 110 ML IVPB SCH (09:32)
[2020-03-31] MEDS: Norepinephrine Bitartrate 16 MG in Sodium Chloride 484 ML IV SCH (09:40)
--- NOTE | 2020-03-31 10:03 | Pulmonology Progress Note ---
Subjective ROS Limited/Unobtainable: Yes Interval Events: Remains intubated; abdomen distended; doing very poorly Constitutional: Reports: other - Hypothermic HEENT: Repors: no symptoms Respiratory: Reports: no symptoms Cardiovascular: Reports: no symptoms Gastrointestinal/Abdominal: Reports: diarrhea Allergies: Coded Allergies: No Known Allergies (Unverified , 03/20/20) Objective Last 24 Hour Vital Signs Date Time Temp Pulse Resp B/P (MAP) Pulse Ox O2 Delivery O2 Flow Rate FiO2 03/31/20 09:30 78 25 69/40 (50) 65 03/31/20 09:00 32 20 33/24 (27) 81 03/31/20 08:30 86 20 44/24 (31) 81 03/31/20 08:00 85 03/31/20 08:00 86 20 48/27 (34) 79 03/31/20 08:00 100 03/31/20 07:30 91 20 59/32 (41) 84 03/31/20 07:21 92 20 100 03/31/20 07:21 90 20 94 Mechanical Ventilator 100 03/31/20 07:00 88 20 40/20 (27) 81 03/31/20 06:30 86 20 45/20 (28) 70 03/31/20 06:01 81 60/30 03/31/20 06:00 85 20 41/11 (21) 03/31/20 05:30 40 50/20 (30) 03/31/20 05:03 94 20 100 03/31/20 05:00 92 17 46/20 (29) 60 03/31/20 05:00 56/40 03/31/20 04:30 86 20 50/20 (30) 92 03/31/20 04:00 Mechanical Ventilator 03/31/20 04:00 88 03/31/20 04:00 97.5 44 9 84/55 (65) 03/31/20 04:00 100 03/31/20 04:00 50/30 03/31/20 03:30 89 20 53/33 (40) 03/31/20 03:22 92 20 100 03/31/20 03:00 86 20 34/19 (24) 03/31/20 03:00 34/19 03/31/20 02:30 93 23 34/13 (20) 86 10/27/20 02:00 79/53 03/31/20 02:00 86 20 64 03/31/20 01:30 97 20 69/42 (51) 03/31/20 01:00 84 20 41/24 (30) 70 03/31/20 01:00 41/24 03/31/20 00:30 91 20 45/34 (38) 56 03/31/20 00:30 92 20 100 03/31/20 00:00 Mechanical Ventilator 03/31/20 00:00 94 20 49/31 (37) 03/31/20 00:00 45/35 03/31/20 00:00 97.5 94 20 49/31 (37) 60 03/31/20 00:00 100 03/31/20 00:00 87 03/30/20 23:56 92 20 87/47 (60) 03/30/20 23:54 93 20 100 03/30/20 23:30 92 20 60 03/30/20 23:00 90 20 40/30 (33) 60 03/30/20 22:52 119/63 03/30/20 22:52 99 119/63 03/30/20 22:30 96 20 103/39 (60) 78 03/30/20 22:00 91 20 61/34 (43) 76 03/30/20 22:00 61/34 03/30/20 21:30 104 19 41/31 (34) 03/30/20 21:00 96 23 47/31 (36) 78 03/30/20 21:00 29/15 03/30/20 20:30 99 28 47/28 (34) 69 03/30/20 20:29 99 20 100 03/30/20 20:00 100 03/30/20 20:00 Mechanical Ventilator 03/30/20 20:00 96 03/30/20 20:00 36/10 03/30/20 20:00 97.0 106 20 36/10 (19) 03/30/20 19:41 94 22 100 03/30/20 19:30 100 21 32/15 (21) 79 03/30/20 19:00 119/63 03/30/20 19:00 102 20 119/63 (81) 77 03/30/20 18:50 45/16 03/30/20 18:30 94 35 34/22 (26) 84 03/30/20 18:27 92 39/12 03/30/20 18:00 39/12 03/30/20 18:00 39/12 03/30/20 17:59 92 20 64/30 (41) 94 03/30/20 17:31 103 22 47/39 (42) 94 03/30/20 17:01 102 19 50/31 (37) 94 03/30/20 17:00 50/31 03/30/20 17:00 102 21 100 03/30/20 16:30 103 19 85/56 (66) 98 03/30/20 16:01 102 25 65/36 (46) 98 03/30/20 16:01 100 03/30/20 16:00 Mechanical Ventilator 03/30/20 16:00 106 03/30/20 16:00 85/56 03/30/20 15:30 97.5 89 24 33/15 (21) 88 03/30/20 15:20 60 17 100 03/30/20 15:03 97.5 104 22 115/76 (89) 88 03/30/20 15:00 99 31 100 03/30/20 15:00 115/76 03/30/20 14:00 97.5 100 30 95/79 (84) 88 03/30/20 14:00 47/31 03/30/20 14:00 97.7 103 30 41/19 (26) 90 03/30/20 13:33 61/35 03/30/20 13:30 102 27 95/79 (84) 84 03/30/20 13:30 40/26 03/30/20 13:00 111/71 03/30/20 13:00 99 36 100 03/30/20 13:00 102 37 61/35 (44) 97 03/30/20 12:48 61/35 03/30/20 12:30 99 30 110/86 (94) 86 03/30/20 12:00 100 03/30/20 12:00 101 35 42/19 (27) 91 03/30/20 12:00 110/86 03/30/20 12:00 Mechanical Ventilator 03/30/20 12:00 97 03/30/20 11:48 96 42/19 03/30/20 11:30 102 32 58/42 (47) 86 03/30/20 11:00 104 36 50/20 (30) 86 03/30/20 11:00 50/20 03/30/20 11:00 104 32 100 03/30/20 10:30 100 31 50/ (31) 87 Intake and Output 03/30/20 03/31/20 19:00 07:00 Intake Total 2081.10 ml 2891.75 ml Output Total 1020 ml 25 ml Balance 1061.10 ml 2866.75 ml IV Total 2081.10 ml 1991.75 ml Blood Product 900 ml Output Urine Total 20 ml 25 ml Stool Total 1000 ml # Bowel Movements 100 General Appearance: no acute distress HEENT: normocephalic Respiratory: decreased breath sounds Cardiovascular: normal peripheral pulses, normal rate Abdomen: distended Microbiology Date/Time Source Procedure Growth Status 03/28/20 16:20 Sputum Gram Stain - Final Resulted 03/28/20 16:20 Sputum Culture - Preliminary YEAST Resulted Laboratory Tests 03/31/20 04:00: Sodium Level 139, Potassium Level 3.1L, Chloride Level 102, Carbon Dioxide Level 21, Anion Gap 16H, Blood Urea Nitrogen 29H, Creatinine 2.4H, Estimat Glomerular Filtration Rate 21.3, Glucose Level 242H, Calcium Level 7.0L, Total Bilirubin 13.9H, Direct Bilirubin 11.0H, Aspartate Amino Transf (AST/SGOT) 61H, Alanine Aminotransferase (ALT/SGPT) 51, Alkaline Phosphatase 167H, Total Protein 4.4L, Albumin 1.3L, Globulin 3.1, Albumin/Globulin Ratio 0.4L, Random Vancomycin Level 14.7 Current Medications Medications (Trade) Dose Ordered Sig/Joanna Route PRN Reason Start Time Stop Time Status Last Admin Dose Admin Amylase/Lipase/ Protease (Hallie TAYLOR 36,000 units cap) 1 ea WITH SNACKS PRN ORAL give with snacks 03/21/20 09:30 06/19/20 09:29 03/22/20 12:10 Chlorhexidine Gluconate (Roxanne-Hex 2%) 1 applic DAILY@1999 TOPIC 03/27/20 20:00 06/25/20 19:59 03/30/20 20:51 Dextrose (Dextrose 50%) 25 ml Q30M PRN IV Hypoglycemia 03/20/20 20:45 06/18/20 20:44 Dextrose (Dextrose 50%) 50 ml Q30M PRN IV Hypoglycemia 03/20/20 20:45 06/18/20 20:44 03/26/20 20:51 Lactulose (Cephulac) 30 gm EVERY 8 HOURS ORAL 03/25/20 14:00 04/24/20 13:59 03/31/20 05:48 Magnesium Hydroxide (Mom) 30 ml HSPRN PRN ORAL Constipation 03/20/20 20:45 04/19/20 20:44 Midodrine (Pro-Amatine) 5 mg EVERY 8 HOURS NG 03/28/20 14:00 06/19/20 09:59 03/31/20 05:48 Norepinephrine Bitartrate 16 mg/ Sodium Chloride 500 ml @ 0 mls/hr Q24H IV 03/31/20 02:00 04/03/20 01:59 03/30/20 22:52 Pantoprazole (Protonix) 40 mg DAILY IVP 03/28/20 17:00 04/27/20 16:59 03/31/20 09:31 Pentoxifylline (TRENtal) 400 mg THREE TIMES A DAY ORAL 03/23/20 22:00 06/21/20 21:59 03/27/20 17:08 Phenylephrine HCl 100 mg/Dextrose 250 ml @ 0 mls/hr Q24H IV 03/28/20 18:30 03/31/20 23:59 03/31/20 06:01 Piperacillin Sod/ Tazobactam Sod 3.375 gm/Sodium Chloride 110 ml @ 27.5 mls/hr Q12HR IVPB 03/26/20 14:00 04/02/20 13:59 03/31/20 09:32 Rifaximin (Xifaxan) 550 mg EVERY 12 HOURS ORAL 03/22/20 21:00 04/03/20 23:59 03/31/20 09:38 Sodium Bicarbonate 150 ml/Dextrose 1,150 ml @ 100 mls/hr [id number] IV 03/29/20 12:30 04/28/20 12:29 03/31/20 06:01 Spironolactone (Aldactone) 50 mg DAILY ORAL 03/22/20 09:00 04/21/20 08:59 03/28/20 09:23 Vancomycin HCl ([facility] pharmacy to dose) 1 ea DAILY PRN MISC Per rx protocol 03/27/20 11:15 04/26/20 11:14 Vancomycin HCl 1 gm/Dextrose 275 ml @ 183.708 mls/hr ONCE IVPB 03/31/20 09:00 03/31/20 11:00 03/31/20 09:32 Vasopressin 100 units/Sodium Chloride 100 ml @ 0 mls/hr Q24H IV 03/28/20 20:15 03/31/20 20:14 03/31/20 05:51 Assessment/Plan Assessment/Plan IMPRESSION: 1. Respiratory failure. 2. Status post Code Blue. 3. Marked leukocytosis 4. Sepsis 5. Hepatic failure. 6. Renal failure. 7. Significant metabolic acidosis. 8. Tense ascites 9. Coagulopathy 10. Shock; on pressors DISCUSSION: The patient is critically ill with respiratory failure. She also has hepatic failure and renal failure consistent for hepatorenal syndrome. Prognosis is grave. 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 Agree with broad-spectrum antibiotics. Continue pulmonary hygiene. I will continue vent as is. Lemuel Justice M.D. Lemuel Justice MD Mar 31, 2020 10:03
[2020-03-31 10:31] LABS: HEMATOCRIT 21.7 % (37.0-47.0); HEMOGLOBIN 7.2 G/DL (12.0-16.0); MEAN CORPUSCULAR VOLUME 91 FL (80-99); PLATELET COUNT 23 K/UL (150-450); RED BLOOD COUNT 2.39 M/UL (4.20-5.40); RED CELL DISTRIBUTION WIDTH 18.6 % (11.6-14.8); WHITE BLOOD COUNT 18.1 K/UL (4.8-10.8)
--- NOTE | 2020-03-31 12:17 | Infectious Diseases Prog Note ---
Assessment/Plan Assessment/Plan IMPRESSION: 1. UTI with E. coli. 2. Leukomoid reaction 3. 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 4. COPD. 5. Anemia. 6. Thrombocytopenia. 7. Hypokalemia. 8. Likely alcoholic hepatitis. 9. Cachexia. 10. Pneumonia/ atelectasis 11. cardiopulmonary arrest 12. renal failure 13. Lactic acidosis 14. hypokalemia 15. Shock 16. Encephalopathy RECOMMENDATION: Continue Zosyn & Vancomycin Prognosis seems to be poor Patient is DNR now. Subjective ROS Limited/Unobtainable: Yes Constitutional: Reports: other - hypothermic Cardiovascular: Reports: other - on maximal dose pressors Allergies: Coded Allergies: No Known Allergies (Unverified , 03/20/20) Objective Last 24 Hour Vital Signs Date Time Temp Pulse Resp B/P (MAP) Pulse Ox O2 Delivery O2 Flow Rate FiO2 03/31/20 12:04 97.5 87 20 60/46 (51) 100 03/31/20 12:00 84 03/31/20 12:00 100 03/31/20 11:30 82 20 39/26 (30) 68 03/31/20 11:00 81 20 31/19 (23) 65 03/31/20 10:37 86 20 100 03/31/20 10:29 89 20 62/32 (42) 65 03/31/20 10:00 87 20 34/15 (21) 65 03/31/20 09:40 69/49 03/31/20 09:30 78 25 69/40 (50) 65 03/31/20 09:00 32 20 33/24 (27) 81 03/31/20 08:30 86 20 44/24 (31) 81 03/31/20 08:00 85 03/31/20 08:00 86 20 48/27 (34) 79 03/31/20 08:00 100 03/31/20 07:30 91 20 59/32 (41) 84 03/31/20 07:21 92 20 100 03/31/20 07:21 90 20 94 Mechanical Ventilator 100 03/31/20 07:00 88 20 40/20 (27) 81 03/31/20 06:30 86 20 45/20 (28) 70 03/31/20 06:01 81 60/30 03/31/20 06:00 85 20 41/11 (21) 03/31/20 05:30 40 50/20 (30) 03/31/20 05:03 94 20 100 03/31/20 05:00 92 17 46/20 (29) 60 03/31/20 05:00 56/40 03/31/20 04:30 86 20 50/20 (30) 92 03/31/20 04:00 Mechanical Ventilator 03/31/20 04:00 88 03/31/20 04:00 97.5 44 9 84/55 (65) 03/31/20 04:00 100 03/31/20 04:00 50/30 03/31/20 03:30 89 20 53/33 (40) 03/31/20 03:22 92 20 100 03/31/20 03:00 86 20 34/19 (24) 03/31/20 03:00 34/19 03/31/20 02:30 93 23 34/13 (20) 86 03/31/20 02:00 79/53 03/31/20 02:00 86 20 64 03/31/20 01:30 97 20 69/42 (51) 03/31/20 01:00 84 20 41/24 (30) 70 03/31/20 01:00 41/24 03/31/20 00:30 91 20 45/34 (38) 56 03/31/20 00:30 92 20 100 03/31/20 00:00 Mechanical Ventilator 03/31/20 00:00 94 20 49/31 (37) 03/31/20 00:00 45/35 03/31/20 00:00 97.5 94 20 49/31 (37) 60 03/31/20 00:00 100 03/31/20 00:00 87 03/30/20 23:56 92 20 87/47 (60) 03/30/20 23:54 93 20 100 03/30/20 23:30 92 20 60 03/30/20 23:00 90 20 40/30 (33) 60 03/30/20 22:52 119/63 03/30/20 22:52 99 119/63 03/30/20 22:30 96 20 103/39 (60) 78 03/30/20 22:00 91 20 61/34 (43) 76 03/30/20 22:00 61/34 03/30/20 21:30 104 19 41/31 (34) 03/30/20 21:00 96 23 47/31 (36) 78 03/30/20 21:00 29/15 03/30/20 20:30 99 28 47/28 (34) 69 03/30/20 20:29 99 20 100 03/30/20 20:00 100 03/30/20 20:00 Mechanical Ventilator 03/30/20 20:00 96 03/30/20 20:00 36/10 03/30/20 20:00 97.0 106 20 36/10 (19) 03/30/20 19:41 94 22 100 03/30/20 19:30 100 21 32/15 (21) 79 03/30/20 19:00 119/63 03/30/20 19:00 102 20 119/63 (81) 77 03/30/20 18:50 45/16 03/30/20 18:30 94 35 34/22 (26) 84 03/30/20 18:27 92 39/12 03/30/20 18:00 39/12 03/30/20 18:00 39/12 03/30/20 17:59 92 20 64/30 (41) 94 03/30/20 17:31 103 22 47/39 (42) 94 03/30/20 17:01 102 19 50/31 (37) 94 03/30/20 17:00 50/31 03/30/20 17:00 102 21 100 03/30/20 16:30 103 19 85/56 (66) 98 03/30/20 16:01 102 25 65/36 (46) 98 03/30/20 16:01 100 03/30/20 16:00 Mechanical Ventilator 03/30/20 16:00 106 03/30/20 16:00 85/56 03/30/20 15:30 97.5 89 24 33/15 (21) 88 03/30/20 15:20 60 17 100 03/30/20 15:03 97.5 104 22 115/76 (89) 88 03/30/20 15:00 99 31 100 03/30/20 15:00 115/76 03/30/20 14:00 97.5 100 30 95/79 (84) 88 03/30/20 14:00 47/31 03/30/20 14:00 97.7 103 30 41/19 (26) 90 03/30/20 13:33 61/35 03/30/20 13:30 102 27 95/79 (84) 84 03/30/20 13:30 40/26 03/30/20 13:00 111/71 03/30/20 13:00 99 36 100 03/30/20 13:00 102 37 61/35 (44) 97 03/30/20 12:48 61/35 03/30/20 12:30 99 30 110/86 (94) 86 Height (Feet): 4 Height (Inches): 11.00 Weight (Pounds): 105 HEENT: other - orally intubated Respiratory/Chest: other - on ventilator Abdomen: soft, non tender Extremities: other - Generalized edema Neurologic/Psychiatric: unresponsiveness Microbiology Date/Time Source Procedure Growth Status 03/28/20 16:20 Sputum Gram Stain - Final Resulted 03/28/20 16:20 Sputum Culture - Preliminary YEAST Resulted Laboratory Tests Test 03/31/20 04:00 03/31/20 09:35 Sodium Level 139 MMOL/L (136-145) Potassium Level 3.1 MMOL/L (3.5-5.1) L Chloride Level 102 MMOL/L (98-107) Carbon Dioxide Level 21 MMOL/L (21-32) Anion Gap 16 mmol/L (5-15) H Blood Urea Nitrogen 29 mg/dL (7-18) H Creatinine 2.4 MG/DL (0.55-1.30) H Estimat Glomerular Filtration Rate 21.3 mL/min (>60) Glucose Level 242 MG/DL (74-106) H Calcium Level 7.0 MG/DL (8.5-10.1) L Total Bilirubin 13.9 MG/DL (0.2-1.0) H Direct Bilirubin 11.0 MG/DL (0.0-0.3) H Aspartate Amino Transf (AST/SGOT) 61 U/L (15-37) H Alanine Aminotransferase (ALT/SGPT) 51 U/L (12-78) Alkaline Phosphatase 167 U/L (46-116) H Total Protein 4.4 G/DL (6.4-8.2) L Albumin 1.3 G/DL (3.4-5.0) L Globulin 3.1 g/dL Albumin/Globulin Ratio 0.4 (1.0-2.7) L Random Vancomycin Level 14.7 ug/mL White Blood Count 18.1 K/UL (4.8-10.8) #H Red Blood Count 2.39 M/UL (4.20-5.40) L Hemoglobin 7.2 G/DL (12.0-16.0) L Hematocrit 21.7 % (37.0-47.0) L Mean Corpuscular Volume 91 FL (80-99) Mean Corpuscular Hemoglobin 30.0 PG (27.0-31.0) Mean Corpuscular Hemoglobin Concent 32.9 G/DL (32.0-36.0) Red Cell Distribution Width 18.6 % (11.6-14.8) H Platelet Count 23 K/UL (150-450) #L Mean Platelet Volume 7.1 FL (6.5-10.1) Neutrophils (%) (Auto) % (45.0-75.0) Lymphocytes (%) (Auto) % (20.0-45.0) Monocytes (%) (Auto) % (1.0-10.0) Eosinophils (%) (Auto) % (0.0-3.0) Basophils (%) (Auto) % (0.0-2.0) Differential Total Cells Counted 100 Neutrophils % (Manual) 70 % (45-75) Lymphocytes % (Manual) 11 % (20-45) L Monocytes % (Manual) 2 % (1-10) Eosinophils % (Manual) 0 % (0-3) Basophils % (Manual) 0 % (0-2) Band Neutrophils 17 % (0-8) H Nucleated Red Blood Cells 2 /100 WBC Platelet Estimate Decreased L Platelet Morphology Normal Polychromasia 1+ Hypochromasia 1+ Anisocytosis 2+ Current Medications Medications (Trade) Dose Ordered Sig/Joanna Route PRN Reason Start Time Stop Time Status Last Admin Dose Admin Amylase/Lipase/ Protease (Hallie TAYLOR 36,000 units cap) 1 ea WITH SNACKS PRN ORAL give with snacks 03/21/20 09:30 06/19/20 09:29 03/22/20 12:10 Chlorhexidine Gluconate (Roxanne-Hex 2%) 1 applic DAILY@2000 TOPIC 03/27/20 20:00 06/25/20 19:59 03/30/20 20:51 Dextrose (Dextrose 50%) 25 ml Q30M PRN IV Hypoglycemia 03/20/20 20:45 06/18/20 20:44 Dextrose (Dextrose 50%) 50 ml Q30M PRN IV Hypoglycemia 03/20/20 20:45 06/18/20 20:44 03/26/20 20:51 Lactulose (Cephulac) 30 gm EVERY 8 HOURS ORAL 03/25/20 14:00 04/24/20 13:59 03/31/20 05:48 Magnesium Hydroxide (Mom) 30 ml HSPRN PRN ORAL Constipation 03/20/20 20:45 04/19/20 20:44 Midodrine (Pro-Amatine) 5 mg EVERY 8 HOURS NG 03/28/20 14:00 06/19/20 09:59 03/31/20 05:48 Norepinephrine Bitartrate 16 mg/ Sodium Chloride 500 ml @ 0 mls/hr Q24H IV 03/31/20 02:00 04/03/20 01:59 03/31/20 09:40 Pantoprazole (Protonix) 40 mg DAILY IVP 03/28/20 17:00 04/27/20 16:59 03/31/20 09:31 Pentoxifylline (TRENtal) 400 mg THREE TIMES A DAY ORAL 03/23/20 22:00 06/21/20 21:59 03/27/20 17:08 Phenylephrine HCl 100 mg/Dextrose 250 ml @ 0 mls/hr Q24H IV 03/28/20 18:30 03/31/20 23:59 03/31/20 06:01 Piperacillin Sod/ Tazobactam Sod 3.375 gm/Sodium Chloride 110 ml @ 27.5 mls/hr Q12HR IVPB 03/26/20 14:00 04/02/20 13:59 03/31/20 09:32 Rifaximin (Xifaxan) 550 mg EVERY 12 HOURS ORAL 03/22/20 21:00 04/03/20 23:59 03/31/20 09:38 Sodium Bicarbonate 150 ml/Dextrose 1,150 ml @ 100 mls/hr [id number] IV 03/29/20 12:30 04/28/20 12:29 03/31/20 06:01 Spironolactone (Aldactone) 50 mg DAILY ORAL 03/22/20 09:00 04/21/20 08:59 03/28/20 09:23 Vancomycin HCl ([facility] pharmacy to dose) 1 ea DAILY PRN MISC Per rx protocol 03/27/20 11:15 04/26/20 11:14 Vasopressin 100 units/Sodium Chloride 100 ml @ 0 mls/hr Q24H IV 03/28/20 20:15 03/31/20 20:14 03/31/20 05:51 Thom Diaz MD Mar 31, 2020 12:17
--- NOTE | 2020-03-31 14:57 | General Progress Note ---
Subjective Allergies: Coded Allergies: No Known Allergies (Unverified , 03/20/20) Subjective doing poorly intubated Objective Last 24 Hour Vital Signs Date Time Temp Pulse Resp B/P (MAP) Pulse Ox O2 Delivery O2 Flow Rate FiO2 03/31/20 14:30 94 21 32/17 (22) 99 03/31/20 14:00 90 20 52/36 (41) 99 03/31/20 13:33 84 20 78/54 (62) 100 03/31/20 13:00 88 20 43/20 (28) 100 03/31/20 12:37 100 54/22 03/31/20 12:30 85 20 42/20 (27) 100 03/31/20 12:04 97.5 87 20 60/46 (51) 100 03/31/20 12:00 Mechanical Ventilator 03/31/20 12:00 84 03/31/20 12:00 100 03/31/20 11:30 82 20 39/26 (30) 68 03/31/20 11:00 81 20 31/19 (23) 65 03/31/20 10:37 86 20 100 03/31/20 10:29 89 20 62/32 (42) 65 03/31/20 10:00 87 20 34/15 (21) 65 03/31/20 09:40 69/49 03/31/20 09:30 78 25 69/40 (50) 65 03/31/20 09:00 32 20 33/24 (27) 81 03/31/20 08:30 86 20 44/24 (31) 81 03/31/20 08:00 85 03/31/20 08:00 Mechanical Ventilator 03/31/20 08:00 86 20 48/27 (34) 79 03/31/20 08:00 100 03/31/20 07:30 91 20 59/32 (41) 84 03/31/20 07:21 92 20 100 03/31/20 07:21 90 20 94 Mechanical Ventilator 100 03/31/20 07:00 88 20 40/20 (27) 81 03/31/20 06:30 86 20 45/20 (28) 70 03/31/20 06:01 81 60/30 03/31/20 06:00 85 20 41/11 (21) 03/31/20 05:30 40 50/20 (30) 03/31/20 05:03 94 20 100 03/31/20 05:00 92 17 46/20 (29) 60 03/31/20 05:00 56/40 03/31/20 04:30 86 20 50/20 (30) 92 03/31/20 04:00 Mechanical Ventilator 03/31/20 04:00 88 03/31/20 04:00 97.5 44 9 84/55 (65) 03/31/20 04:00 100 03/31/20 04:00 50/30 03/31/20 03:30 89 20 53/33 (40) 03/31/20 03:22 92 20 100 03/31/20 03:00 86 20 34/19 (24) 03/31/20 03:00 34/19 03/31/20 02:30 93 23 34/13 (20) 86 03/31/20 02:00 79/53 03/31/20 02:00 86 20 64 03/31/20 01:30 97 20 69/42 (51) 03/31/20 01:00 84 20 41/24 (30) 70 03/31/20 01:00 41/24 03/31/20 00:30 91 20 45/34 (38) 56 03/31/20 00:30 92 20 100 03/31/20 00:00 Mechanical Ventilator 03/31/20 00:00 94 20 49/31 (37) 03/31/20 00:00 45/35 03/31/20 00:00 97.5 94 20 49/31 (37) 60 03/31/20 00:00 100 03/31/20 00:00 87 03/30/20 23:56 92 20 87/47 (60) 03/30/20 23:54 93 20 100 03/30/20 23:30 92 20 60 03/30/20 23:00 90 20 40/30 (33) 60 03/30/20 22:52 119/63 03/30/20 22:52 99 119/63 03/30/20 22:30 96 20 103/39 (60) 78 03/30/20 22:00 91 20 61/34 (43) 76 03/30/20 22:00 61/34 03/30/20 21:30 104 19 41/31 (34) 03/30/20 21:00 96 23 47/31 (36) 78 03/30/20 21:00 29/15 03/30/20 20:30 99 28 47/28 (34) 69 03/30/20 20:29 99 20 100 03/30/20 20:00 100 03/30/20 20:00 Mechanical Ventilator 03/30/20 20:00 96 03/30/20 20:00 36/10 03/30/20 20:00 97.0 106 20 36/10 (19) 03/30/20 19:41 94 22 100 03/30/20 19:30 100 21 32/15 (21) 79 03/30/20 19:00 119/63 03/30/20 19:00 102 20 119/63 (81) 77 03/30/20 18:50 45/16 03/30/20 18:30 94 35 34/22 (26) 84 03/30/20 18:27 92 39/12 03/30/20 18:00 39/12 03/30/20 18:00 39/12 03/30/20 17:59 92 20 64/30 (41) 94 03/30/20 17:31 103 22 47/39 (42) 94 03/30/20 17:01 102 19 50/31 (37) 94 03/30/20 17:00 50/31 03/30/20 17:00 102 21 100 03/30/20 16:30 103 19 85/56 (66) 98 03/30/20 16:01 102 25 65/36 (46) 98 03/30/20 16:01 100 03/30/20 16:00 Mechanical Ventilator 03/30/20 16:00 106 03/30/20 16:00 85/56 03/30/20 15:30 97.5 89 24 33/15 (21) 88 03/30/20 15:20 60 17 100 03/30/20 15:03 97.5 104 22 115/76 (89) 88 03/30/20 15:00 99 31 100 03/30/20 15:00 115/76 Intake and Output 03/30/20 03/31/20 19:00 07:00 Intake Total 2081.10 ml 3086.40 ml Output Total 1020 ml 25 ml Balance 1061.10 ml 3061.40 ml IV Total 2081.10 ml 2186.40 ml Blood Product 900 ml Output Urine Total 20 ml 25 ml Stool Total 1000 ml # Bowel Movements 100 Laboratory Tests 03/31/20 04:00: Sodium Level 139, Potassium Level 3.1L, Chloride Level 102, Carbon Dioxide Level 21, Anion Gap 16H, Blood Urea Nitrogen 29H, Creatinine 2.4H, Estimat Glomerular Filtration Rate 21.3, Glucose Level 242H, Calcium Level 7.0L, Total Bilirubin 13.9H, Direct Bilirubin 11.0H, Aspartate Amino Transf (AST/SGOT) 61H, Alanine Aminotransferase (ALT/SGPT) 51, Alkaline Phosphatase 167H, Total Protein 4.4L, Albumin 1.3L, Globulin 3.1, Albumin/Globulin Ratio 0.4L, Random Vancomycin Level 14.7 03/31/20 09:35: White Blood Count 18.1#H, Red Blood Count 2.39L, Hemoglobin 7.2L, Hematocrit 21.7L, Mean Corpuscular Volume 91, Mean Corpuscular Hemoglobin 30.0, Mean Corpuscular Hemoglobin Concent 32.9, Red Cell Distribution Width 18.6H, Platelet Count 23#L, Mean Platelet Volume 7.1, Neutrophils (%) (Auto) , Lymphocytes (%) (Auto) , Monocytes (%) (Auto) , Eosinophils (%) (Auto) , Basophils (%) (Auto) , Differential Total Cells Counted 100, Neutrophils % (Manual) 70, Lymphocytes % (Manual) 11L, Monocytes % (Manual) 2, Eosinophils % (Manual) 0, Basophils % (Manual) 0, Band Neutrophils 17H, Nucleated Red Blood Cells 2, Platelet Estimate DecreasedL, Platelet Morphology Normal, Polychromasia 1+, Hypochromasia 1+, Anisocytosis 2+ Height (Feet): 4 Height (Inches): 11.00 Weight (Pounds): 105 Cardiovascular: other - istant Edema: 4+ Generalized Assessment/Plan Problem List: (1) Acute renal failure Assessment & Plan: no sig change ICD Codes: N17.9 - Acute kidney failure, unspecified SNOMED: 22135062 Qualifiers: Qualified Codes: N17.9 - Acute kidney failure, unspecified (2) Cirrhosis ICD Codes: K74.60 - Unspecified cirrhosis of liver SNOMED: 63205092 Qualifiers: Qualified Codes: K70.31 - Alcoholic cirrhosis of liver with ascites (3) Anemia Assessment & Plan: worse ICD Codes: D64.9 - Anemia, unspecified SNOMED: 274916650 Qualifiers: Qualified Codes: D64.9 - Anemia, unspecified (4) Sepsis ICD Codes: A41.9 - Sepsis, unspecified organism SNOMED: 68338366 (5) Hypokalemia ICD Codes: E87.6 - Hypokalemia SNOMED: 84814677 (6) Cardiopulmonary arrest ICD Codes: I46.9 - Cardiac arrest, cause unspecified SNOMED: 679124105 (7) E. coli UTI ICD Codes: N39.0 - Urinary tract infection, site not specified; B96.20 - Unspecified Escherichia coli [E. coli] as the cause of diseases classified elsewhere SNOMED: 342847476 (8) Hypoglycemia ICD Codes: E16.2 - Hypoglycemia, unspecified SNOMED: 751888356 (9) Thrombocytopenia ICD Codes: D69.6 - Thrombocytopenia, unspecified SNOMED: 515518043 (10) ARF (acute renal failure) ICD Codes: N17.9 - Acute kidney failure, unspecified SNOMED: 88815757 Status: unchanged, deteriorating Assessment/Plan: abxs keep on on pressors/ maxed follow labs Discussed with RN and Dr Childers Would not escalate care DNR IV D5 with bicarb Replete K total time spent 33 min Erick Diaz MD Mar 31, 2020 14:57
[2020-03-31] MEDS: Dyna-Hex 2% Top Sol 2oz TOPIC SCH (20:41)
[2020-04-01] VITALS (21 sets, daily range): BP systolic 0–54; BP diastolic 0–36
[2020-04-01] MEDS: Lactulose 20gm/30ml UDC ORAL SCH (04:27)
[2020-04-01] MEDS: Pantoprazole Inj IVP SCH (09:00)
[2020-04-01] MEDS: Spironolactone 50mg tab ORAL SCH (09:00)
--- NOTE | 2020-04-01 09:32 | General Progress Note ---
Subjective Allergies: Coded Allergies: No Known Allergies (Unverified , 03/20/20) Subjective above noted on vent hypotensive no labs Objective Last 24 Hour Vital Signs Date Time Temp Pulse Resp B/P (MAP) Pulse Ox O2 Delivery O2 Flow Rate FiO2 04/01/20 08:00 100 04/01/20 08:00 Mechanical Ventilator 04/01/20 08:00 76 31 49/24 (32) 100 04/01/20 07:42 74 04/01/20 07:11 76 35 100 04/01/20 07:00 77 34 43/28 (33) 98 04/01/20 06:00 75 32 45/29 (34) 99 04/01/20 05:30 74 31 46/28 (34) 99 04/01/20 05:07 76 34 100 04/01/20 05:00 73 34 49/30 (36) 99 04/01/20 04:30 74 33 43/30 (34) 99 04/01/20 04:00 Mechanical Ventilator 04/01/20 04:00 100 04/01/20 04:00 76 04/01/20 04:00 76 33 42/30 (34) 98 04/01/20 03:30 76 34 50/28 (35) 98 04/01/20 03:04 76 28 100 04/01/20 03:00 76 32 47/31 (36) 98 04/01/20 02:30 78 30 48/28 (35) 97 04/01/20 02:00 75 34 46/25 (32) 97 04/01/20 01:30 76 29 49/36 (40) 99 04/01/20 01:00 75 30 45/26 (32) 97 04/01/20 00:53 78 31 100 04/01/20 00:30 74 33 50/29 (36) 98 04/01/20 00:00 79 04/01/20 00:00 79 36 51/35 (40) 96 04/01/20 00:00 100 04/01/20 00:00 Mechanical Ventilator 03/31/20 23:30 81 35 45/25 (32) 97 03/31/20 23:00 77 36 100 03/31/20 23:00 77 34 49/29 (36) 97 03/31/20 22:30 79 34 54/27 (36) 98 03/31/20 22:00 83 34 61/30 (40) 97 03/31/20 21:30 79 32 62/20 (34) 97 03/31/20 21:07 81 33 100 03/31/20 21:00 81 33 54/32 (39) 97 03/31/20 20:30 80 31 47/25 (32) 95 03/31/20 20:00 82 03/31/20 20:00 Mechanical Ventilator 03/31/20 20:00 100 03/31/20 20:00 82 29 43/13 (23) 91 03/31/20 19:50 84 30 60/23 (35) 95 03/31/20 19:35 83 26 31/17 (22) 94 03/31/20 19:26 84 25 100 03/31/20 19:25 89 24 30/13 (19) 03/31/20 19:20 92 25 42/12 (22) 91 03/31/20 19:05 96 24 35/23 (27) 99 03/31/20 19:00 102 23 03/31/20 18:00 94 20 33/22 (26) 03/31/20 17:30 97 20 100 03/31/20 17:15 96 20 66/26 (39) 03/31/20 17:00 89 20 100 03/31/20 16:00 93 03/31/20 16:00 93 20 51/37 (42) 100 03/31/20 16:00 Mechanical Ventilator 03/31/20 16:00 100 03/31/20 15:30 90 20 34/21 (25) 98 03/31/20 15:17 96 20 100 03/31/20 15:00 93 22 32/33 (33) 03/31/20 14:30 94 21 32/17 (22) 99 03/31/20 14:00 90 20 52/36 (41) 99 03/31/20 13:33 84 20 78/54 (62) 100 03/31/20 13:19 85 20 100 03/31/20 13:00 88 20 43/20 (28) 100 03/31/20 12:37 100 54/22 03/31/20 12:30 85 20 42/20 (27) 100 03/31/20 12:04 97.5 87 20 60/46 (51) 100 03/31/20 12:00 Mechanical Ventilator 03/31/20 12:00 84 03/31/20 12:00 100 03/31/20 11:30 82 20 39/26 (30) 68 03/31/20 11:00 81 20 31/19 (23) 65 03/31/20 10:37 86 20 100 03/31/20 10:29 89 20 62/32 (42) 65 03/31/20 10:00 87 20 34/15 (21) 65 03/31/20 09:40 69/49 03/31/20 09:30 78 25 69/40 (50) 65 Intake and Output 03/31/20 04/01/20 19:00 07:00 Intake Total 702135.156 ml Output Total 20 ml 10 ml Balance 181751.156 ml -10 ml IV Total 933400.156 ml Output Urine Total 20 ml 10 ml # Bowel Movements 100 20 Laboratory Tests 03/31/20 09:35: White Blood Count 18.1#H, Red Blood Count 2.39L, Hemoglobin 7.2L, Hematocrit 21.7L, Mean Corpuscular Volume 91, Mean Corpuscular Hemoglobin 30.0, Mean Corpuscular Hemoglobin Concent 32.9, Red Cell Distribution Width 18.6H, Platelet Count 23#L, Mean Platelet Volume 7.1, Neutrophils (%) (Auto) , Lymphocytes (%) (Auto) , Monocytes (%) (Auto) , Eosinophils (%) (Auto) , Basophils (%) (Auto) , Differential Total Cells Counted 100, Neutrophils % (Manual) 70, Lymphocytes % (Manual) 11L, Monocytes % (Manual) 2, Eosinophils % (Manual) 0, Basophils % (Manual) 0, Band Neutrophils 17H, Nucleated Red Blood Cells 2, Platelet Estimate DecreasedL, Platelet Morphology Normal, Polychromasia 1+, Hypochromasia 1+, Anisocytosis 2+ Height (Feet): 4 Height (Inches): 11.00 Weight (Pounds): 105 Objective cathexic woman with distended abdomen NCAT, (+) ETT, (+) OGT (+) ronchi RR abd distended (+) edema all ext Assessment/Plan Status: unchanged, deteriorating Assessment/Plan: Assessment - EtOH Hepatitis & cirrhosis - Ascites - UTI - shock & shocked liver - lactic acidosis - coagulopathy - PNA and hypoxia and respiratory failure - azotemia - Moribund Recommendations - comfort measures per family decision - end of life planning - no labs ordered Nadine Childers MD Apr 01, 2020 09:32
--- NOTE | 2020-04-01 10:08 | Pulmonology Progress Note ---
Subjective ROS Limited/Unobtainable: Yes Interval Events: Remains intubated; abdomen distended; doing very poorly Constitutional: Reports: other - hypothermic HEENT: Repors: no symptoms Respiratory: Reports: no symptoms Cardiovascular: Reports: no symptoms Gastrointestinal/Abdominal: Reports: diarrhea Allergies: Coded Allergies: No Known Allergies (Unverified , 03/20/20) Objective Last 24 Hour Vital Signs Date Time Temp Pulse Resp B/P (MAP) Pulse Ox O2 Delivery O2 Flow Rate FiO2 04/01/20 09:08 78 33 100 04/01/20 09:00 49/24 04/01/20 08:00 100 04/01/20 08:00 Mechanical Ventilator 04/01/20 08:00 76 31 49/24 (32) 100 04/01/20 07:42 74 04/01/20 07:11 76 35 100 04/01/20 07:00 77 34 43/28 (33) 98 04/01/20 06:00 75 32 45/29 (34) 99 04/01/20 05:30 74 31 46/28 (34) 99 04/01/20 05:07 76 34 100 04/01/20 05:00 73 34 49/30 (36) 99 04/01/20 04:30 74 33 43/30 (34) 99 04/01/20 04:00 Mechanical Ventilator 04/01/20 04:00 100 04/01/20 04:00 76 04/01/20 04:00 76 33 42/30 (34) 98 04/01/20 03:30 76 34 50/28 (35) 98 04/01/20 03:04 76 28 100 04/01/20 03:00 76 32 47/31 (36) 98 04/01/20 02:30 78 30 48/28 (35) 97 04/01/20 02:00 75 34 46/25 (32) 97 04/01/20 01:30 76 29 49/36 (40) 99 04/01/20 01:00 75 30 45/26 (32) 97 04/01/20 00:53 78 31 100 04/01/20 00:30 74 33 50/29 (36) 98 04/01/20 00:00 79 04/01/20 00:00 79 36 51/35 (40) 96 04/01/20 00:00 100 04/01/20 00:00 Mechanical Ventilator 03/31/20 23:30 81 35 45/25 (32) 97 03/31/20 23:00 77 36 100 03/31/20 23:00 77 34 49/29 (36) 97 03/31/20 22:30 79 34 54/27 (36) 98 03/31/20 22:00 83 34 61/30 (40) 97 03/31/20 21:30 79 32 62/20 (34) 97 03/31/20 21:07 81 33 100 03/31/20 21:00 81 33 54/32 (39) 97 03/31/20 20:30 80 31 47/25 (32) 95 03/31/20 20:00 82 03/31/20 20:00 Mechanical Ventilator 03/31/20 20:00 100 03/31/20 20:00 82 29 43/13 (23) 91 03/31/20 19:50 84 30 60/23 (35) 95 03/31/20 19:35 83 26 31/17 (22) 94 03/31/20 19:26 84 25 100 03/31/20 19:25 89 24 30/13 (19) 03/31/20 19:20 92 25 42/12 (22) 91 03/31/20 19:05 96 24 35/23 (27) 99 03/31/20 19:00 102 23 03/31/20 18:00 94 20 33/22 (26) 03/31/20 17:30 97 20 100 03/31/20 17:15 96 20 66/26 (39) 03/31/20 17:00 89 20 100 03/31/20 16:00 93 03/31/20 16:00 93 20 51/37 (42) 100 03/31/20 16:00 Mechanical Ventilator 03/31/20 16:00 100 03/31/20 15:30 90 20 34/21 (25) 98 03/31/20 15:17 96 20 100 03/31/20 15:00 93 22 32/33 (33) 03/31/20 14:30 94 21 32/17 (22) 99 03/31/20 14:00 90 20 52/36 (41) 99 03/31/20 13:33 84 20 78/54 (62) 100 10/27/20 13:19 85 20 100 03/31/20 13:00 88 20 43/20 (28) 100 03/31/20 12:37 100 54/22 03/31/20 12:30 85 20 42/20 (27) 100 03/31/20 12:04 97.5 87 20 60/46 (51) 100 03/31/20 12:00 Mechanical Ventilator 03/31/20 12:00 84 03/31/20 12:00 100 03/31/20 11:30 82 20 39/26 (30) 68 03/31/20 11:00 81 20 31/19 (23) 65 03/31/20 10:37 86 20 100 03/31/20 10:29 89 20 62/32 (42) 65 Intake and Output 03/31/20 04/01/20 19:00 07:00 Intake Total 907351.156 ml Output Total 20 ml 10 ml Balance 231596.156 ml -10 ml IV Total 245473.156 ml Output Urine Total 20 ml 10 ml # Bowel Movements 100 20 General Appearance: no acute distress HEENT: normocephalic Respiratory: decreased breath sounds Cardiovascular: normal peripheral pulses, normal rate Abdomen: distended Current Medications Medications (Trade) Dose Ordered Sig/Joanna Route PRN Reason Start Time Stop Time Status Last Admin Dose Admin Amylase/Lipase/ Protease (Hallie TAYLOR 36,000 units cap) 1 ea WITH SNACKS PRN ORAL give with snacks 03/21/20 09:30 06/19/20 09:29 03/22/20 12:10 Chlorhexidine Gluconate (Roxanne-Hex 2%) 1 applic DAILY@2000 TOPIC 03/27/20 20:00 06/25/20 19:59 03/31/20 20:41 Lactulose (Cephulac) 30 gm EVERY 8 HOURS ORAL 03/25/20 14:00 04/24/20 13:59 03/31/20 14:02 Midodrine (Pro-Amatine) 5 mg EVERY 8 HOURS NG 03/28/20 14:00 06/19/20 09:59 03/31/20 14:02 Pantoprazole (Protonix) 40 mg DAILY IVP 03/28/20 17:00 04/27/20 16:59 03/31/20 09:31 Pentoxifylline (TRENtal) 400 mg THREE TIMES A DAY ORAL 03/23/20 22:00 06/21/20 21:59 03/27/20 17:08 Rifaximin (Xifaxan) 550 mg EVERY 12 HOURS ORAL 03/22/20 21:00 04/03/20 23:59 03/31/20 09:38 Spironolactone (Aldactone) 50 mg DAILY ORAL 03/22/20 09:00 04/21/20 08:59 03/28/20 09:23 Assessment/Plan Assessment/Plan IMPRESSION: 1. Respiratory failure. 2. Status post Code Blue. 3. Marked leukocytosis 4. Sepsis 5. Hepatic failure. 6. Renal failure. 7. Significant metabolic acidosis. 8. Tense ascites 9. Coagulopathy 10. Shock; on pressors DISCUSSION: The patient is critically ill with respiratory failure. She also has hepatic failure and renal failure consistent for hepatorenal syndrome. Prognosis is grave. 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 Agree with broad-spectrum antibiotics. Continue pulmonary hygiene. I will continue vent as is. Lemuel Justice M.D. Lemuel Justice MD Apr 01, 2020 10:08
--- NOTE | 2020-04-01 12:48 | General Progress Note ---
Subjective Allergies: Coded Allergies: No Known Allergies (Unverified , 03/20/20) Subjective doing poorly intubated Objective Last 24 Hour Vital Signs Date Time Temp Pulse Resp B/P (MAP) Pulse Ox O2 Delivery O2 Flow Rate FiO2 04/01/20 12:25 0 04/01/20 12:05 45 25 54/24 (34) 85 04/01/20 12:00 83 46/27 (33) 04/01/20 12:00 100 04/01/20 12:00 Mechanical Ventilator 04/01/20 11:04 74 35 100 04/01/20 11:00 83 22 46/32 (37) 99 04/01/20 10:00 74 30 43/27 (32) 100 04/01/20 09:08 78 33 100 04/01/20 09:00 76 28 44/27 (33) 100 04/01/20 09:00 49/24 04/01/20 08:00 100 04/01/20 08:00 Mechanical Ventilator 04/01/20 08:00 76 31 49/24 (32) 100 04/01/20 07:42 74 04/01/20 07:11 76 35 100 04/01/20 07:00 77 34 43/28 (33) 98 04/01/20 06:00 75 32 45/29 (34) 99 04/01/20 05:30 74 31 46/28 (34) 99 04/01/20 05:07 76 34 100 04/01/20 05:00 73 34 49/30 (36) 99 04/01/20 04:30 74 33 43/30 (34) 99 04/01/20 04:00 Mechanical Ventilator 04/01/20 04:00 100 04/01/20 04:00 76 04/01/20 04:00 76 33 42/30 (34) 98 04/01/20 03:30 76 34 50/28 (35) 98 04/01/20 03:04 76 28 100 04/01/20 03:00 76 32 47/31 (36) 98 04/01/20 02:30 78 30 48/28 (35) 97 04/01/20 02:00 75 34 46/25 (32) 97 04/01/20 01:30 76 29 49/36 (40) 99 04/01/20 01:00 75 30 45/26 (32) 97 04/01/20 00:53 78 31 100 04/01/20 00:30 74 33 50/29 (36) 98 04/01/20 00:00 79 04/01/20 00:00 79 36 51/35 (40) 96 04/01/20 00:00 100 04/01/20 00:00 Mechanical Ventilator 03/31/20 23:30 81 35 45/25 (32) 97 03/31/20 23:00 77 36 100 03/31/20 23:00 77 34 49/29 (36) 97 03/31/20 22:30 79 34 54/27 (36) 98 03/31/20 22:00 83 34 61/30 (40) 97 03/31/20 21:30 79 32 62/20 (34) 97 03/31/20 21:07 81 33 100 03/31/20 21:00 81 33 54/32 (39) 97 03/31/20 20:30 80 31 47/25 (32) 95 03/31/20 20:00 82 03/31/20 20:00 Mechanical Ventilator 03/31/20 20:00 100 03/31/20 20:00 82 29 43/13 (23) 91 03/31/20 19:50 84 30 60/23 (35) 95 03/31/20 19:35 83 26 31/17 (22) 94 03/31/20 19:26 84 25 100 03/31/20 19:25 89 24 30/13 (19) 03/31/20 19:20 92 25 42/12 (22) 91 03/31/20 19:05 96 24 35/23 (27) 99 03/31/20 19:00 102 23 03/31/20 18:00 94 20 33/22 (26) 03/31/20 17:30 97 20 100 03/31/20 17:15 96 20 66/26 (39) 03/31/20 17:00 89 20 100 03/31/20 16:00 93 03/31/20 16:00 93 20 51/37 (42) 100 03/31/20 16:00 Mechanical Ventilator 03/31/20 16:00 100 03/31/20 15:30 90 20 34/21 (25) 98 03/31/20 15:17 96 20 100 03/31/20 15:00 93 22 32/33 (33) 03/31/20 14:30 94 21 32/17 (22) 99 03/31/20 14:00 90 20 52/36 (41) 99 03/31/20 13:33 84 20 78/54 (62) 100 03/31/20 13:19 85 20 100 03/31/20 13:00 88 20 43/20 (28) 100 Intake and Output 03/31/20 04/01/20 19:00 07:00 Intake Total 428422.156 ml Output Total 20 ml 10 ml Balance 279520.156 ml -10 ml IV Total 662413.156 ml Output Urine Total 20 ml 10 ml # Bowel Movements 100 20 Height (Feet): 4 Height (Inches): 11.00 Weight (Pounds): 105 Assessment/Plan Problem List: (1) Acute renal failure Assessment & Plan: no sig change ICD Codes: N17.9 - Acute kidney failure, unspecified SNOMED: 91947773 Qualifiers: Qualified Codes: N17.9 - Acute kidney failure, unspecified (2) Cirrhosis ICD Codes: K74.60 - Unspecified cirrhosis of liver SNOMED: 44450357 Qualifiers: Qualified Codes: K70.31 - Alcoholic cirrhosis of liver with ascites (3) Anemia Assessment & Plan: worse ICD Codes: D64.9 - Anemia, unspecified SNOMED: 421619054 Qualifiers: Qualified Codes: D64.9 - Anemia, unspecified (4) Sepsis ICD Codes: A41.9 - Sepsis, unspecified organism SNOMED: 57353838 (5) Hypokalemia ICD Codes: E87.6 - Hypokalemia SNOMED: 79635787 (6) Cardiopulmonary arrest ICD Codes: I46.9 - Cardiac arrest, cause unspecified SNOMED: 902428334 (7) E. coli UTI ICD Codes: N39.0 - Urinary tract infection, site not specified; B96.20 - Unspecified Escherichia coli [E. coli] as the cause of diseases classified elsewhere SNOMED: 247884862 (8) Hypoglycemia ICD Codes: E16.2 - Hypoglycemia, unspecified SNOMED: 606518338 (9) Thrombocytopenia ICD Codes: D69.6 - Thrombocytopenia, unspecified SNOMED: 119742565 (10) ARF (acute renal failure) ICD Codes: N17.9 - Acute kidney failure, unspecified SNOMED: 40281292 Status: unchanged, deteriorating Assessment/Plan: Discussed with sister at bed side pt will be extubated terminally today Erick Diaz MD Apr 01, 2020 12:48
[2020-04-01] MEDS ORDERED: Sterile Water Irrig 1000ml IRRIG ONE (13:51)
[2020-04-01] MEDS ORDERED: NS 275ml ONE ×2 (13:51→13:59)
[2020-04-01] MEDS ORDERED: Tubing Blood Filter IV ONE (13:51)
[2020-04-01] MEDS ORDERED: Tubing IV Secondary IV ONE (13:51)
--- NOTE | 2020-04-02 17:51 | Discharge Summary ---
Discharge Summary Discharge Summary _ SUMMARY DATE OF ADMISSION: 03/20/2020 DATE OF EXPIRATION: 04/01/2020 REASON FOR ADMISSION: 49 years old female with no significant past medical history according to patient , presented with abdominal pain associated with abdominal bloating . nausea , vomiting and diarrhea for one week. She denied blood in the vomitus or stool . She denied black tarry stool . She denied recent antibiotic use. No fever or chills No cough, chest pain , shortness of breath or lower extremity edema . Patient admitted to alcohol abuse. Upon evaluation patient was afebrile , blood pressure was 126/100. Laboratory work-up revealed significant leukocytosis WBC 28.4 , hemoglobin 6.9 , hematocrit 22.2, platelet count 103. Lactic acid 4.9. CK 9 . Chemistry demonstrated potassium 2.6 , sodium 133 . Ammonia 52 Troponin negative Stable AST and ALT initially, total bilirubin 7.3 , direct bilirubin 7.0 . Lip ase 25 Calcium 7.5 Urinalysis revealed pyuria , many bacteria , +2 protein, +2 bilirubin . Serum alcohol less than [address] of the abdomen and pelvis revealed unusual gas and fluid collection with calcifications within or adjacent to the vaginal wall, as described. Significance/etiology uncertain but the possibility of infected collection should be considered. Consider further evaluation with sonography as well as gynecological evaluation. Large volume ascites Evidence of hepatic cirrhosis Evidence of chronic calcifying pancreatitis Evidence of bullous COPD Rapid COVID-19 was negative. Chest x-ray revealed no acute cardiopulmonary pathology. In emergency department patient undergone ultrasound-guided diagnostic paracentesis yielding 30 mL of straw-colored fluid. Patient received fluid bolus as well as D50 to correct hypoglycemia. Patient started on empiric antibiotic and subsequently admitted for further management. CONSULTANTS: well driller Dr. Worley pulmonary ID specialist Dr. Thom [facility]: Patient admitted and started on the IV fluids with potassium and empiric antibiotics. Patient started on lactulose and Xifaxan. Creon initiated. Overall prognosis remained very poor . Ascitic fluid culture was negative. Urine culture revealed E. coli Blood cultures were negative. Antibiotic regimen optimized as per ID specialist recommendation. Urine studies were done. IV fluids changed to banana bag. On 03/26 patient sustained cardiopulmonary arrest and required oral intubation as well as initiation of pressors. Central line was placed . Patient was orally intubated . Chest x-ray revealed right mainstem bronchus intubation , recommended retraction by 2 to 3 cm, worsening aeration of the lungs. ET was adjusted. Patient started on pressor, initially only Levophed. Hemodynamic status was closely monitored with goal to keep mean arterial blood pressure above 65. Patient was also on aggressive IV hydration. . On 03/28 patient required initiation of other pressors : phenylephrine and vasopressin Echocardiogram revealed anterior and inferior septum mid to distal hypokinesis. Left ventricular ejection fraction estimated to be 40%. No evidence of left ventricular hypertrophy. Large pleural effusion. Grade 2 diastolic dysfunction Patient condition continued to deteriorate. Lactic acidosis worsened . LFT and bilirubin trending up. Hepatitis panel was negative. HIV test was nonreactive. Patient developed renal failure as well. Hepatic and renal failure were consistent with probably hepatorenal syndrome. Blood pressure remained low despite three different pressors at maximum doses. Leukocytosis trending up with the highest being 53.9 most likely leukemoid reaction as per ID specialist/ Antibiotics contineud as per D specialsit recomemdnations. Patient remained critical and at risk fro dying, CODE STATUS changed to DNR/DNI and to DNR/DNI on . Counts were closely monitored. Patient received total of 3 units of packed red blood cells while in the hospital. Last hemoglobin 7.2, hematocrit 21.7 Patient received 1 unit of plateletpheresis for platelet count of 5 , which increased to 23 the next day. Patient condition continued to deteriorate. Family decided on comfort measures and end-of-life planning. Patient was pronounced at 12:25 on 04/01. Cause of : cardiopulmonary arrest FINAL DIAGNOSES: Status post cardiopulmonary arrest Septic shock Acute respiratory failure , requiring intubation Acute renal failure Acute hepatic failure Probably hepatorenal syndrome Lactic acidosis Hepatic encephalopathy Cirrhosis with ascites, likely alcohol induced cirrhosis Likely alcoholic hepatitis Coagulopathy Chronic pancreatitis ETOH abuse E. coli UTI Leukemoid reaction LV systolic dysfunction Pneumonia/atelectasis Hypokalemia Thrombocytopenia Anemia Bullous COPD Severe protein calorie malnutrition Cachexia I have been assigned to dictate discharge summary for this account. I was not involved in the patient's management. Edilma Chadwick NP Apr 02, 2020 17:51
== END 2020-04-01 12:25 | disposition expired | DRG 720 ==
LOC: EDBD 14:00 → EMR 14:15 → EDBEDREQSVC 17:38 → EDBEDREQ 17:38 → 2W 18:04 → EDBEDREQ 21:17 → 2W 03-24 20:06 → ICU 03-26 07:00
PROC: 0W9G3ZZ Drainage of Peritoneal Cavity, Percutaneous Approach (ICD-10-PCS; 2020-03-20)
PROC: 5A1955Z Respiratory Ventilation, Greater than 96 Consecutive Hours (ICD-10-PCS; principal; 2020-03-26)
PROC: 0BH17EZ Insertion of Endotracheal Airway into Trachea, Via Natural or Artificial Opening (ICD-10-PCS; principal; 2020-03-26)
DX: A41.9 Sepsis, unspecified organism (principal); R65.21 Severe sepsis with septic shock; D69.6 Thrombocytopenia, unspecified; N17.9 Acute kidney failure, unspecified; D68.9 Coagulation defect, unspecified; K86.1 Other chronic pancreatitis; J18.9 Pneumonia, unspecified organism; K72.90 Hepatic failure, unspecified without coma; E43 Unspecified severe protein-calorie malnutrition; Z68.21 Body mass index [BMI] 21.0-21.9, adult; N39.0 Urinary tract infection, site not specified; B96.20 Unspecified Escherichia coli [E. coli] as the cause of diseases classified elsewhere; E87.6 Hypokalemia; K70.31 Alcoholic cirrhosis of liver with ascites; F10.10 Alcohol abuse, uncomplicated; K70.11 Alcoholic hepatitis with ascites; E16.2 Hypoglycemia, unspecified; D64.9 Anemia, unspecified; R64 Cachexia; J44.0 Chronic obstructive pulmonary disease with (acute) lower respiratory infection; J96.01 Acute respiratory failure with hypoxia; K72.00 Acute and subacute hepatic failure without coma; R19.7 Diarrhea, unspecified
CPT/HCPCS: 36415; 71045; 74018; 74176; 80053; 80202; 81003; 82140; 82248; 82306; 82533; 82550; 82803; 82962; 83605; 83690; 83735; 83880; 83935; 84300; 84484; 85007; 85025; 85379; 85610; 85730; 86703; 86705; 86708; 86803; 86850; 86900; 86901; 86920; 87040; 87070; 87086; 87181; 87205; 87340; 89051; 92950; 93005; 93306; 94002; 94003; 94664; 96361; 96365; 96367; 96375; 99291; G0480; J0171; J2370; J2405; J3430; J7030; J8499; U0002